=== PATIENT | male | born 1985 | race Caucasian/White ===

== ENCOUNTER 2018-12-16 10:25 | Observation (INO) | payer SELFPAY ==
--- NOTE | 2018-12-16 11:23 | PDOC ---
History of Present Illness - General Chief Complaint: Chest Pain Stated Complaint: CHEST PAIN Time Seen by Provider: 12/16/18 11:20 Past History - Past Medical History Allergies/Adverse Reactions: Allergies Allergy/AdvReac Type Severity Reaction Status Date / Time No Known Allergies Allergy Verified 12/16/18 10:28 Home Medications: Ambulatory Orders Atorvastatin Ca [Lipitor] 40 mg PO HS 12/16/18 Folic Acid 1 mg PO DAILY 12/16/18 Metoprolol Succinate 50 mg PO DAILY 12/16/18 Multivitamin,Therapeutic [Thera] 1 each PO DAILY 12/16/18 Spironolactone 25 mg PO DAILY 12/16/18 COPD: No HTN: Yes - Immunization History Immunization Up to Date: Yes - Suicide/Smoking/Psychosocial Hx Smoking Status: No Smoking History: Current every day smoker Have you smoked in the past 12 months: Yes Number of Cigarettes Smoked Daily: 0 Information on smoking cessation initiated: Yes Hx Alcohol Use: Yes Drug/Substance Use Hx: Yes (marijuana) Substance Use Type: None *Physical Exam - Vital Signs Last Vital Signs Temp Pulse Resp BP Pulse Ox 98.1 F 48 L 18 119/55 L 98 12/16/18 10:29 12/16/18 10:29 12/16/18 10:29 12/16/18 10:29 12/16/18 10:29
--- NOTE | 2018-12-16 11:25 | PDOC ---
History of Present Illness - General Chief Complaint: Chest Pain Stated Complaint: CHEST PAIN Time Seen by Provider: 12/16/18 11:20 - History of Present Illness Initial Comments: 33 year old male with PMH of HTN, HLD, and drug related IN (09/2018) presenting with chest pain for the past week. Describes the pain as pleuritic, exertional, intermittent, and maximally 8/10 of intensity. The pain does not wake him up from sleep except for one night. He does get shortness of breath with the pain. The pain is non-radiating and worse specifically with left hand movement. Denies any fevers, chills, nausea, vomiting, diarrhea, or other symptoms. He does not use cocaine anymore but does drink every other day (12 pack of beer) and has never had withdrawal symptoms or seizures before. 12/16/18 12:20 Past History - Past Medical History Allergies/Adverse Reactions: Allergies Allergy/AdvReac Type Severity Reaction Status Date / Time No Known Allergies Allergy Verified 12/16/18 10:28 Home Medications: Ambulatory Orders Atorvastatin Ca [Lipitor] 40 mg PO HS 12/16/18 Folic Acid 1 mg PO DAILY 12/16/18 Metoprolol Succinate 50 mg PO DAILY 12/16/18 Multivitamin,Therapeutic [Thera] 1 each PO DAILY 12/16/18 Spironolactone 25 mg PO DAILY 12/16/18 COPD: No HTN: Yes - Immunization History Immunization Up to Date: Yes - Suicide/Smoking/Psychosocial Hx Smoking Status: No Smoking History: Current every day smoker Have you smoked in the past 12 months: Yes Number of Cigarettes Smoked Daily: 0 Information on smoking cessation initiated: Yes Hx Alcohol Use: Yes Drug/Substance Use Hx: Yes (marijuana) Substance Use Type: None Review of Systems - Review of Systems Constitutional: No: Chills, Diaphoresis, Fever, Loss of Appetite HEENTM: No: Blurred Vision, Tearing, Recent change in vision, Double Vision Respiratory: Yes: Shortness of Breath, SOB with Exertion. No: Cough Cardiac (ROS): Yes: Chest Pain. No: Edema, Irregular Heart Rate, Lightheadedness, Palpitations ABD/GI: No: Diarrhea, Nausea, Vomiting : No: Burning, Dysuria, Discharge Musculoskeletal: No: Back Pain, Joint Pain, Joint Swelling Integumentary: No: Bruising, Lesions, Lumps Neurological: No: Headache, Numbness, Paresthesia, Tingling Psychiatric: No: Anxiety, Depression Hematologic/Lymphatic: No: Anemia, Blood Clots, Easy Bleeding *Physical Exam - Vital Signs Last Vital Signs Temp Pulse Resp BP Pulse Ox 98.1 F 48 L 18 119/55 L 98 12/16/18 10:29 12/16/18 10:29 12/16/18 10:29 12/16/18 10:29 12/16/18 10:29 - Physical Exam General Appearance: Yes: Nourished, Appropriately Dressed. No: Apparent Distress HEENT: positive: EOMI, LÓPEZ, Normal ENT Inspection, Normal Voice Neck: positive: Tender (left sided chest wall tenderness), Trachea midline, Normal Thyroid, Supple. negative: Rigid Respiratory/Chest: positive: Lungs Clear, Normal Breath Sounds. negative: Chest Tender, Respiratory Distress, Accessory Muscle Use Cardiovascular: positive: Regular Rhythm, Regular Rate Gastrointestinal/Abdominal: positive: Normal Bowel Sounds, Flat, Soft. negative : Tender Lymphatic: negative: Adenopathy, Tenderness Musculoskeletal: positive: Normal Inspection. negative: Decreased Range of Motion Extremity: positive: Normal Capillary Refill, Normal Inspection, Normal Range of Motion. negative: Tender Integumentary: positive: Normal Color, Dry, Warm Neurologic: positive: Fully Oriented, Alert, Normal Mood/Affect, Normal Response , Motor Strength 5/5 ED Treatment Course - LABORATORY CBC & Chemistry Diagram: 12/16/18 11:50 12/16/18 11:50 Medical Decision Making - Medical Decision Making 33 year old male with previous history of IN secondary to cocaine use with EKG demonstrating rate 100, IN interval 148, QRS 110, normal axis and many PVCs with ST segment changes in V2-v4 but no discrete contiguous elevations or contiguous depressions. Patient given ASA. Troponin negative and other labs WNL. Will admit patient for rule out IN after discussing with inpatient theme. 12/16/18 13:56 *DC/Admit/Observation/Transfer Diagnosis at time of Disposition: Chest pain, rule out acute myocardial infarction - Discharge Dispostion Condition at time of disposition: Stable Decision to Admit order: Yes - Referrals - Patient Instructions - Post Discharge Activity
[2018-12-16] MEDS ORDERED: ASPIRIN 81 MG CHEWABLE TABLETS PO ONE (11:37)
[2018-12-16] MEDS ORDERED: ASPIRIN 81 MG CHEWABLE TABLETS ONE (11:51)
[2018-12-16 11:58] LABS: BASO % 0.3 % (0-2.0); EOS % 2.1 % (0-4.5); HEMATOCRIT 45.9 % (35.4-49); HEMOGLOBIN 15.7 GM/dL (11.7-16.9); LYMPH % 25.1 % (8-40); MCH 30.8 pg (25.7-33.7); MCHC 34.2 g/dl (32.0-35.9); MEAN PLT VOLUME 10.7 fl (7.5-11.1); MONO % 5.9 % (3.8-10.2); NEUT % 66.6 % (42.8-82.8); PLATELET COUNT 187 K/MM3 (134-434); RDW 15.4 % (11.9-15.9); WHITE BLOOD COUNT 8.1 K/mm3 (4.0-10.0)
[2018-12-16 12:12] LABS: INR 1.04 (0.83-1.09); PROTHROMBIN TIME (PATIENT) 12.3 SEC (9.7-13.0)
[2018-12-16 12:33] LABS: ALBUMIN 4.1 g/dl (3.4-5.0); BILIRUBIN,TOTAL 1.2 mg/dL (0.2-1); BLOOD UREA NITROGEN 15.8 mg/dL (7-18); CALCIUM 9.3 mg/dL (8.5-10.1)
--- NOTE | 2018-12-16 12:59 | PDOC ---
Documentation entered by Don Cui SCRIBE, acting as scribe for Eulogio Rubalcava MD. Eulogio Rubalcava MD: This documentation has been prepared by the See cabrrea Elijah, SCRIBE, under my direction and personally reviewed by me in its entirety. I confirm that the documentation accurately reflects all work, treatment, procedures, and medical decision making performed by me. Attending Attestation - Resident Resident Name: Heladio Weiner - ED Attending Attestation I have performed the following: I have examined & evaluated the patient, The case was reviewed & discussed with the resident, I agree w/resident's findings & plan, Exceptions are as noted - HPI HPI: 12/16/18 12:23 Patient is a 33 year old male with a significant past medical history of ND in setting of cocaine use, HTN, HL, etoh abuse (drinks 12 pack every other day) and CHF presents to the ED with intermittent Left sided Chest Pain lasting for x1 week, but constant over the last day. Patient reports that the pain is similar to his CHF in the past (Admitted in September 2017), 8/10 intensity with no modifying factors. Denies SOB and Leg Swelling. Denies Diaphoresis, Recent Fall , and heavy lifting. No N/V, fevers, headaches, chills, trauma, recent travel, focal weakness/numbness, dizziness. No recent travel, immobility, calf pain. Allergies: NKA Social History: marijuana use daily, alcohol use, last cocaine use "months and months ago" - Physicial Exam PE: 12/16/18 12:28 GENERAL: Awake, alert, and fully oriented, in no acute distress. HEAD: No signs of trauma EYES: PERRLA, EOMI, sclera anicteric, conjunctiva clear ENT: Auricles normal inspection, hearing grossly normal, nares patent, oropharynx clear without exudates. Moist mucosa NECK: Nontender, no stepoffs, Normal ROM, supple, no lymphadenopathy, JVD, or masses LUNGS: Breath sounds equal, clear to auscultation bilaterally. No wheezes, and no crackles HEART: Regular rate and rhythm, normal S1 and S2, no murmurs, rubs or gallops ABDOMEN: Soft, nontender, normoactive bowel sounds. No guarding, no rebound. No masses EXTREMITIES: Normal range of motion, no edema. No clubbing or cyanosis. No cords, erythema, or tenderness NEUROLOGICAL: Cranial nerves II through XII intact. 5/5 strength and sensation in all extremities, Normal speech, normal gait, normal cerebellar function SKIN: Warm, Dry, normal turgor, no rashes or lesions noted. - Medical Decision Making 12/16/18 12:39 33yo M hx ND, CHF, etoh abuse presents to the ED with CP for 1 week, now contstant DDx includes ACS vs CHF vs PE vs PNA vs MSK pain Meets no PERC criteria, thus very low likelihood, also no risk factors, LE edema /pain, recent immobility HS is elevated Anticipate admission Heart Score/ECG Review - History History: Moderately suspicious - Electrocardiogram EKG: Non specific repolarization disturbance - Age Age: </= 45 - Risk Factors Risk Factors Heart Score: Yes Hx Obesity Based on the list above the patient has:: >/=3 risk factors or Hx atherosclerotic disease - Troponin Troponin: </= normal limit - Score Heart Score - Total: 4 #1 12/16/18 12:38 Twelve-lead EKG was performed and reviewed by me. Sinus rhythm with occasional PVCs. Rate 100. Normal axis. No ST elevations.
--- NOTE | 2018-12-16 13:49 | EKG ---
Test Reason : Blood Pressure : / mmHG Vent. Rate : 100 BPM Atrial Rate : 100 BPM P-R Int : 148 ms QRS Dur : 110 ms QT Int : 378 ms P-R-T Axes : 069 069 065 degrees QTc Int : 487 ms SINUS RHYTHM WITH OCCASIONAL PREMATURE VENTRICULAR COMPLEXES BIATRIAL ENLARGEMENT NONSPECIFIC ST ABNORMALITY PROLONGED QT ABNORMAL ECG NO PREVIOUS ECGS AVAILABLE Confirmed by KRISTY PRITCHARD MD ([id number]) on 12/16/2018 1:48:42 PM Referred By: Confirmed By:KRISTY PRITCHARD MD
[2018-12-16 14:26] LABS: COCAINE, UR NEGATIVE ng/ml (CUTOFF=300); METHADONE, UR NEGATIVE ng/ml (CUTOFF=300); OPIATES, URI NEGATIVE ng/ml (CUTOFF=300); PHENCYCLIDINE,URINE NEGATIVE ng/ml (CUTOFF=25); URINE AMPHETAMINES NEGATIVE ng/ml (CUTOFF=500); URINE BARBITURATES NEGATIVE ng/ml (CUTOFF=200); URINE BENZODIAZEPINES NEGATIVE ng/ml (CUTOFF=200)
[2018-12-16] MEDS ORDERED: ACETAMINOPHEN 325 MG TABLET (FP) PO PRN (15:34)
--- NOTE | 2018-12-16 16:16 | HP ---
CHIEF COMPLAINT: 33 year old male presented with left sided chest pain started 10 days ago, worsened over the past 1 day. PCP: He does not have a PCP, he gets all his medications from his revival clerk Dr. Christiano Forte at [facility]. HISTORY OF PRESENT ILLNESS: The patient is a 33 year old male with PMH significant for HTN, HLD, and ACS in the setting of cocaine abuse and CHF, for which he was admitted to [facility] in September 2017. He now presents to the ER with worsening left sided chest pain which began 10 days ago. The pain was gradual in onset, and was not brought upon by any physical exertion. Initially the pain was 3/10 but has increased in intensity to 9/10 over the past 24 hours. The pain is localized to the left side of his chest in the pectoral region. The pain was intermittent and last only a few minutes per episode, but has been constant for the past 24 hours. He describes the pain as someone applying pressure to his chest, and it does not radiate to the left arm , back, or anywhere else. It is aggravated by physical activity, by pressing on his chest, and when he inhales. Was admitted to [facility] for a month in September 2017 for suspected ACS after cocaine abuse. Pt claims he had an angio done, does not remember results. He complains of associated headaches and exertional dyspnea. He is normally able to walk 4-5 blocks and 4 flights of stairs, has become increasingly SOB over the past 10 days. He complains of 3,4 episodes of paroxysmal nocturnal dyspnea over the past week. His weight ranges between 220-240lbs. Current weight is 242 lbs as per patient, and his weight upon discharge in September 2017 was 219lbs. No associated complaints of orthopnea, he ambulates without assistance, and uses 1-2 pillows to sleep at night. There is no associated fever, chills, coughs , nausea, vomiting, diarrhea, ER course was notable for: (1) ASA 324 (2) EKG (3) CXR unremarkable Recent Travel: None PAST MEDICAL HISTORY: HTN, HLD, and ACS in the setting of cocaine abuse and CHF PAST SURGICAL HISTORY: None Social History: Smokin pack year history, non smoker for the past 9 years Alcohol: 6-7 beers per night, prior to September 2017 drank 50 beers and a gallon vodka every night, according to the patient Drugs: used cocaine prior to September 2017, has not used any since then. Smokes marijuana every night to help him sleep. Family History: Hx of breast cancer in mother's side of the family Allergies Shrimp, dust HOME MEDICATIONS: Home Medications Medication Instructions Recorded Atorvastatin Ca [Lipitor] 40 mg PO HS 12/16/18 Folic Acid 1 mg PO DAILY 12/16/18 Metoprolol Succinate 50 mg PO DAILY 12/16/18 Multivitamin,Therapeutic [Thera] 1 each PO DAILY 12/16/18 Spironolactone 25 mg PO DAILY 12/16/18 REVIEW OF SYSTEMS CONSTITUTIONAL: Absent: fever, chills, diaphoresis, generalized weakness, malaise, loss of appetite, weight change HEENT: Absent: rhinorrhea, nasal congestion, throat pain, throat swelling, difficulty swallowing, mouth swelling, ear pain, eye pain, visual changes CARDIOVASCULAR: chest pain Absent: syncope, palpitations, irregular heart rate, lightheadedness, peripheral edema RESPIRATORY: shortness of breath, dyspnea with exertion Absent: cough, orthopnea, wheezing, stridor, hemoptysis GASTROINTESTINAL: Absent: abdominal pain, abdominal distension, nausea, vomiting, diarrhea, constipation, melena, hematochezia GENITOURINARY: Absent: dysuria, frequency, urgency, hesitancy, hematuria, flank pain, genital pain MUSCULOSKELETAL: Absent: myalgia, arthralgia, joint swelling, back pain, neck pain SKIN: Absent: rash, itching, pallor HEMATOLOGIC/IMMUNOLOGIC: Absent: easy bleeding, easy bruising, lymphadenopathy, frequent infections ENDOCRINE: Absent: unexplained weight gain, unexplained weight loss, heat intolerance, cold intolerance NEUROLOGIC: Absent: headache, focal weakness or paresthesias, dizziness, unsteady gait, seizure, mental status changes, bladder or bowel incontinence PSYCHIATRIC: Absent: anxiety, depression, suicidal or homicidal ideation, hallucinations. PHYSICAL EXAMINATION Vital Signs - 24 hr 12/16/18 12/16/18 12/16/18 10:29 11:24 12:53 Temperature 98.1 F 98.4 F Pulse Rate 48 L Pulse Rate [ 105 H Apical] Respiratory 18 20 Rate Blood Pressure 119/55 L Blood Pressure 111/69 [Right Arm] O2 Sat by Pulse 98 98 98 Oximetry (%) GENERAL: Awake, alert, and fully oriented, complaining of chest pain HEAD: Normal with no signs of trauma. EYES: Pupils equal, round and reactive to light, extraocular movements intact, sclera anicteric, conjunctiva clear. No lid lag. EARS, NOSE, THROAT: Ears normal, nares patent, oropharynx clear without exudates. Moist mucous membranes. NECK: Normal range of motion, supple without lymphadenopathy, JVD, or masses. LUNGS: Breath sounds equal, clear to auscultation bilaterally. No wheezes, and no crackles. No accessory muscle use. HEART: Regular rate and rhythm, normal S1 and S2 without murmur, rub or gallop. ABDOMEN: Soft, nontender, not distended, normoactive bowel sounds, no guarding, no rebound, no masses. No hepatomegaly or splenomegaly, no JVD MUSCULOSKELETAL: Normal range of motion at all joints. No bony deformities or tenderness. No CVA tenderness. UPPER EXTREMITIES: 2+ pulses, warm, well-perfused. No cyanosis. No clubbing. No peripheral edema. LOWER EXTREMITIES: 2+ pulses, warm, well-perfused. No calf tenderness. No peripheral edema. NEUROLOGICAL: Cranial nerves II-XII intact. Normal speech. Normal gait. PSYCHIATRIC: Cooperative. Good eye contact. Appropriate mood and affect. SKIN: Warm, dry, normal turgor, no rashes or lesions noted, normal capillary refill. Laboratory Results - last 24 hr 12/16/18 12/16/18 12/16/18 11:50 11:50 11:50 WBC 8.1 RBC 5.10 Hgb 15.7 Hct 45.9 MCV 90.0 MCH 30.8 MCHC 34.2 RDW 15.4 Plt Count 187 MPV 10.7 Absolute Neuts (auto) 5.4 Neutrophils % 66.6 Lymphocytes % 25.1 D Monocytes % 5.9 Eosinophils % 2.1 Basophils % 0.3 Nucleated RBC % 0 PT with INR INR Sodium 138 Potassium 4.0 Chloride 102 Carbon Dioxide 28 Anion Gap 8 BUN 15.8 Creatinine 1.0 Est GFR (CKD-EPI)AfAm 113.31 Est GFR (CKD-EPI)NonAf 97.76 Random Glucose 87 Calcium 9.3 Magnesium 2.0 Total Bilirubin 1.2 H AST 43 H ALT 69 H Alkaline Phosphatase 88 Creatine Kinase 242 Creatine Kinase Index 1.1 CK-MB (CK-2) 2.8 Troponin I 0.02 Total Protein 8.0 Albumin 4.1 Opiates Screen Methadone Screen Barbiturate Screen Phencyclidine Screen Ur Amphetamines Screen MDMA (Ecstasy) Screen Benzodiazepines Screen Cocaine Screen U Marijuana (THC) Screen 12/16/18 12/16/18 11:50 13:25 WBC RBC Hgb Hct MCV MCH MCHC RDW Plt Count MPV Absolute Neuts (auto) Neutrophils % Lymphocytes % Monocytes % Eosinophils % Basophils % Nucleated RBC % PT with INR 12.30 INR 1.04 Sodium Potassium Chloride Carbon Dioxide Anion Gap BUN Creatinine Est GFR (CKD-EPI)AfAm Est GFR (CKD-EPI)NonAf Random Glucose Calcium Magnesium Total Bilirubin AST ALT Alkaline Phosphatase Creatine Kinase Creatine Kinase Index CK-MB (CK-2) Troponin I Total Protein Albumin Opiates Screen Negative Methadone Screen Negative Barbiturate Screen Negative Phencyclidine Screen Negative Ur Amphetamines Screen Negative MDMA (Ecstasy) Screen Negative Benzodiazepines Screen Negative Cocaine Screen Negative U Marijuana (THC) Screen Negative ASSESSMENT/PLAN: #Atypical chest pain with significant cardiac history in setting of cocaine abuse - Tele - EKG: Sinus rhythm with poor R wave progression, QTc 487 - Trops normal, repeat - ASA 324mg recieved - on O2 2L - Urine tox sent - D/C metoprolol due to hx of cocaine use #CHF - BNP pending - Echo - CXR: No ecidence of pulmonary disease #Hx of HTN - Replace Metoprolol #Hx of HLD - Continue Atorvastatin 40mg OD #FEN - monitor K, Mg - Regular diet #DVT PE - SCDs, early ambulation #Dispo - Tele Visit type - Emergency Visit Emergency Visit: Yes ED Registration Date: 12/16/18 Care time: The patient presented to the Emergency Department on the above date and was hospitalized for further evaluation of their emergent condition. - New Patient This patient is new to me today: Yes Date on this admission: 01/01/19 - Critical Care Critical Care patient: No ATTENDING PHYSICIAN STATEMENT I saw and evaluated the patient. I reviewed the resident's note and discussed the case with the resident. I agree with the resident's findings and plan as documented. SUBJECTIVE: OBJECTIVE: ASSESSMENT AND PLAN:
--- NOTE | 2018-12-16 16:28 | CON.CARD ---
Consult Consult Specialty:: Cardiology Referred by:: Medicine Reason for Consultation:: chest pain - History of Present Illness Chief Complaint: chest pain History of Present Illness: 33M h/o MT 2/2 cocaine use, HTN, HLD, EtOH use, chronic systolic HF p/w L sided chest pain that has been constant over the last day. Started about a week ago. L side of chest, worse with deep breaths and moving. No palps, dizziness, dyspnea, edema. Has been seeing Dr. Forte for CHF at [facility], not seen recently but has been getting refills on his medications. He has not used cocaine recently. Has been taking diuretic twice a day for the last 2 months. No orthopnea, PND. - History Source History Provided By: Patient Limitations to Obtaining History: No Limitations - Alcohol/Substance Use Hx Alcohol Use: Yes - Smoking History Smoking history: Current every day smoker Have you smoked in the past 12 months: Yes Aproximately how many cigarettes per day: 0 Home Medications - Allergies Allergies/Adverse Reactions: Allergies Allergy/AdvReac Type Severity Reaction Status Date / Time No Known Allergies Allergy Verified 12/16/18 10:28 - Home Medications Home Medications: Ambulatory Orders Atorvastatin Ca [Lipitor] 40 mg PO HS 12/16/18 Folic Acid 1 mg PO DAILY 12/16/18 Metoprolol Succinate 50 mg PO DAILY 12/16/18 Multivitamin,Therapeutic [Thera] 1 each PO DAILY 12/16/18 Spironolactone 25 mg PO DAILY 12/16/18 Family Disease History - Family Disease History Family History: Unremarkable Review of Systems - Review of Systems Constitutional: reports: No Symptoms Eyes: reports: No Symptoms HENT: reports: No Symptoms Neck: reports: No Symptoms Cardiovascular: reports: No Symptoms Respiratory: reports: No Symptoms Gastrointestinal: reports: No Symptoms Genitourinary: reports: No Symptoms Musculoskeletal: reports: No Symptoms Integumentary: reports: No Symptoms Neurological: reports: No Symptoms Endocrine: reports: No Symptoms Hematology/Lymphatic: reports: No Symptoms Psychiatric: reports: No Symptoms Vital Signs: Vital Signs Temperature 98.4 F 12/16/18 12:53 Pulse Rate 105 H 12/16/18 12:53 Respiratory Rate 20 12/16/18 12:53 Blood Pressure 111/69 12/16/18 12:53 O2 Sat by Pulse Oximetry (%) 98 12/16/18 12:53 Constitutional: Yes: Well Nourished, No Distress, Calm Eyes: Yes: Conjunctiva Clear, EOM Intact HENT: Yes: Atraumatic, Normocephalic Neck: Yes: Supple, Trachea Midline Respiratory: Yes: Regular, CTA Bilaterally Gastrointestinal: Yes: Normal Bowel Sounds, Soft Cardiovascular: Yes: Regular Rate and Rhythm JVD: No Carotid Bruit: No PMI: Non-Displaced Heart Sounds: Yes: S1, S2 Musculoskeletal: No: Back Pain Extremities: No: Cold Edema: No Peripheral Pulses WNL: Yes Neurological: Yes: Alert, Oriented Psychiatric: No: Agitated - Other Data Labs, Other Data: CBC, BMP 12/16/18 11:50 12/16/18 11:50 INR, PTT INR 1.04 (0.83-1.09) 12/16/18 11:50 Troponin, BNP 12/16/18 11:50 Troponin I 0.02 Troponin, BNP 12/16/18 11:50 Troponin I 0.02 Assessment/Plan EKG: sinus with PVCs, biatrial enlargement, prolonged qtc CXR: no congestion Chest pain - atypical for ACS - positional, pleuritic - reportedly normal cath at [facility] in 09/2017 as part of cardiomyopathy workup - trop neg x 1, no ischemic changes, repeat trop pending - tox screen neg for cocaine - echo pending - monitor on tele chronic systolic HF 2/2 cocaine use - no congestion on CXR, appears euvolemic - BNP ordered - echo pending - cont spironolactone, metoprolol - patient didn't bring all his meds, unclear why not on [facility], would clarify meds list HLD - cont statin
--- NOTE | 2018-12-16 16:28 | PN ---
Teaching Attending Note Name of Resident: Ricki Pierson ATTENDING PHYSICIAN STATEMENT I saw and evaluated the patient. I reviewed the resident's note and discussed the case with the resident. I agree with the resident's findings and plan as documented. SUBJECTIVE:Chest pain and SOB 33 yrs old man present to Ed for evaluation of chest pain and SOB that gradually increasing over past 10-15 days last night experienced any episode of PND and Left side chest pain that he describes as constant , reproducible with chest wall movement and local pressure aggravates with exertion, patient is first time at [facility] as per patient previously admitted at [facility] in September 2017 with sever SOB, LE swelling and chest pain after heavy Cocaine and ETOH abuse for months , remained hospitalized for 1 month worked up for [place] and CHF underwent Cardiac cath that was reported normal as no blockage in the heart artery also had Cardiac MRI probably to evaluate low EF that he remembers only 7% at the time of hospitalization, patient was admitted with 255 lbs and on DC his dry weight was 2119, as per patient he remained complaint with meds but stop F/U after 3-4 visits, currently claims clean with Cocaine but for past few weeks drinking heavy multiple Beers and Vodka, last night experienced worsening chest pain brought him to Ed, at [facility] [employer] lives on 4th floor climbs daily lately feels tired and SOB after 2 flights of stairs OBJECTIVE: Vital Signs Temperature 98.4 F 12/16/18 12:53 Pulse Rate 105 H 12/16/18 12:53 Respiratory Rate 20 12/16/18 12:53 Blood Pressure 111/69 12/16/18 12:53 O2 Sat by Pulse Oximetry (%) 98 12/16/18 12:53 Young man comfortable HEENT: mm moist, no anemia, PERRLA EOMI NECK; No JVd No bruit CHEST: CTA B/L CVS; S1S2 R ABD: non tender Bs + EXT: No edema feet, no calf tenderness SHANK SCOURER: AOx3 non focal CBC,CMP WBC 8.1 K/mm3 (4.0-10.0) 12/16/18 11:50 RBC 5.10 M/mm3 (4.00-5.60) 12/16/18 11:50 Hgb 15.7 GM/dL (11.7-16.9) 12/16/18 11:50 Hct 45.9 % (35.4-49) 12/16/18 11:50 MCV 90.0 fl (80-96) 12/16/18 11:50 MCH 30.8 pg (25.7-33.7) 12/16/18 11:50 MCHC 34.2 g/dl (32.0-35.9) 12/16/18 11:50 RDW 15.4 % (11.9-15.9) 12/16/18 11:50 Plt Count 187 K/MM3 (134-434) 12/16/18 11:50 MPV 10.7 fl (7.5-11.1) 12/16/18 11:50 Absolute Neuts (auto) 5.4 K/mm3 (1.5-8.0) 12/16/18 11:50 Neutrophils % 66.6 % (42.8-82.8) 12/16/18 11:50 Lymphocytes % 25.1 % (8-40) D 12/16/18 11:50 Monocytes % 5.9 % (3.8-10.2) 12/16/18 11:50 Eosinophils % 2.1 % (0-4.5) 12/16/18 11:50 Basophils % 0.3 % (0-2.0) 12/16/18 11:50 Nucleated RBC % 0 % (0-0) 12/16/18 11:50 Sodium 138 mmol/L (136-145) 12/16/18 11:50 Potassium 4.0 mmol/L (3.5-5.1) 12/16/18 11:50 Chloride 102 mmol/L (98-107) 12/16/18 11:50 Carbon Dioxide 28 mmol/L (21-32) 12/16/18 11:50 Anion Gap 8 MMOL/L (8-16) 12/16/18 11:50 BUN 15.8 mg/dL (7-18) 12/16/18 11:50 Creatinine 1.0 mg/dL (0.55-1.3) 12/16/18 11:50 Est GFR (CKD-EPI)AfAm 113.31 12/16/18 11:50 Est GFR (CKD-EPI)NonAf 97.76 12/16/18 11:50 Random Glucose 87 mg/dL (74-106) 12/16/18 11:50 Calcium 9.3 mg/dL (8.5-10.1) 12/16/18 11:50 Magnesium 2.0 mg/dL (1.8-2.4) 12/16/18 11:50 Total Bilirubin 1.2 mg/dL (0.2-1) H 12/16/18 11:50 AST 43 U/L (15-37) H 12/16/18 11:50 ALT 69 U/L (13-61) H 12/16/18 11:50 Alkaline Phosphatase 88 U/L (45-117) 12/16/18 11:50 Creatine Kinase 242 U/L (26-308) 12/16/18 11:50 Creatine Kinase Index 1.1 % (0.0-5.0) 12/16/18 11:50 CK-MB (CK-2) 2.8 ng/mL (0.5-3.6) 12/16/18 11:50 Troponin I 0.02 ng/ml (0.00-0.05) 12/16/18 11:50 Total Protein 8.0 g/dl (6.4-8.2) 12/16/18 11:50 Albumin 4.1 g/dl (3.4-5.0) 12/16/18 11:50 EK NSR no acute ST t changes CXR; Normal ASSESSMENT AND PLAN: 33 yrs old man with H/O PSA ex Cocaine active ETOH and Marijuana smoker also H/O Substance induced NICM CHFrEF no recent EF present with SOB and atypical chest pain with decrease ET clinically compensated CHEST pain; atypical denies any cocaine abuse F/U Utox resume all home meds ASa , Metoprolol , S/L NTG PRN, cardiology consult, telemonitor, serial CE,TSH lipid panel, ECHO, BNP if High IV lasix 40 mg , low salt diet daily wt call pharmacy and his program management manager to get old record SOB; probably decompensated CHF due to excessive ETOH abuse F/U BNP resume all home meds clinically euvolumic, IV lasix if BNP is high ETOH abuse; Thiamine, folic acid last drink yesterday observe for DTs PRN librium hypercholesterolemia: Cont Statin DVT prophylaxis
[2018-12-16] MEDS ORDERED: NITROGLYCERIN SUBLINGUAL 1/150 0.4 MG TAB SL PRN (18:31)
[2018-12-16] MEDS ORDERED: KETOROLAC TROMETHAMINE 30 MG/1 ML VIAL IVPUSH ONE (19:30)
[2018-12-16] MEDS ORDERED: KETOROLAC TROMETHAMINE 30 MG/1 ML VIAL ONE (19:42)
[2018-12-16 20:12] LABS: N-TERMINAL BNP 1130.9 pg/ml (5-125)
[2018-12-16] MEDS ORDERED: ATORVASTATIN CA 40 MG TABLET (FP) PO SCH (22:00)
[2018-12-16] MEDS ORDERED: MELATONIN 5 MG TABLETS PO SCH (22:00)
[2018-12-16] MEDS ORDERED: ATORVASTATIN CA 40 MG TABLET (FP) ONE (22:27)
[2018-12-17] MEDS ORDERED: KETOROLAC TROMETHAMINE 30 MG/1 ML VIAL IVPUSH ONE ×3 (01:49→14:25)
[2018-12-17 02:08] VITALS: BMI 38.0
--- NOTE | 2018-12-17 06:12 | PN ---
Physical Exam: SUBJECTIVE: Patient seen and examined OBJECTIVE: Vital Signs Period Temp Pulse Resp BP Sys/Tucker Pulse Ox Last 24 Hr 97.7 F-98.4 F 48-105 18-20 104-134/55-69 97-98 GENERAL: The patient is awake, alert, and fully oriented, in no acute distress. HEAD: Normal with no signs of trauma. EYES: PERRL, extraocular movements intact, sclera anicteric, conjunctiva clear. No ptosis. ENT: Ears normal, nares patent, oropharynx clear without exudates, moist mucous membranes. NECK: Trachea midline, full range of motion, supple. LUNGS: Breath sounds equal, clear to auscultation bilaterally, no wheezes, no crackles, no accessory muscle use. HEART: Regular rate and rhythm, S1, S2 without murmur, rub or gallop. ABDOMEN: Soft, nontender, nondistended, normoactive bowel sounds, no guarding, no rebound, no hepatosplenomegaly, no masses. EXTREMITIES: 2+ pulses, warm, well-perfused, no edema. NEUROLOGICAL: Cranial nerves II through XII grossly intact. Normal speech, gait not observed. PSYCH: Normal mood, normal affect. SKIN: Warm, dry, normal turgor, no rashes or lesions noted Laboratory Results - last 24 hr 12/16/18 12/16/18 12/16/18 11:50 11:50 11:50 WBC 8.1 RBC 5.10 Hgb 15.7 Hct 45.9 MCV 90.0 MCH 30.8 MCHC 34.2 RDW 15.4 Plt Count 187 MPV 10.7 Absolute Neuts (auto) 5.4 Neutrophils % 66.6 Lymphocytes % 25.1 D Monocytes % 5.9 Eosinophils % 2.1 Basophils % 0.3 Nucleated RBC % 0 PT with INR INR Sodium 138 Potassium 4.0 Chloride 102 Carbon Dioxide 28 Anion Gap 8 BUN 15.8 Creatinine 1.0 Est GFR (CKD-EPI)AfAm 113.31 Est GFR (CKD-EPI)NonAf 97.76 Random Glucose 87 Calcium 9.3 Magnesium 2.0 Total Bilirubin 1.2 H AST 43 H ALT 69 H Alkaline Phosphatase 88 Creatine Kinase 242 Creatine Kinase Index 1.1 CK-MB (CK-2) 2.8 Troponin I 0.02 B-Natriuretic Peptide Total Protein 8.0 Albumin 4.1 Opiates Screen Methadone Screen Barbiturate Screen Phencyclidine Screen Ur Amphetamines Screen MDMA (Ecstasy) Screen Benzodiazepines Screen Cocaine Screen U Marijuana (THC) Screen 12/16/18 12/16/18 12/16/18 11:50 13:25 19:20 WBC RBC Hgb Hct MCV MCH MCHC RDW Plt Count MPV Absolute Neuts (auto) Neutrophils % Lymphocytes % Monocytes % Eosinophils % Basophils % Nucleated RBC % PT with INR 12.30 INR 1.04 Sodium Potassium Chloride Carbon Dioxide Anion Gap BUN Creatinine Est GFR (CKD-EPI)AfAm Est GFR (CKD-EPI)NonAf Random Glucose Calcium Magnesium Total Bilirubin AST ALT Alkaline Phosphatase Creatine Kinase Creatine Kinase Index CK-MB (CK-2) Troponin I 0.03 B-Natriuretic Peptide 1130.9 H Total Protein Albumin Opiates Screen Negative Methadone Screen Negative Barbiturate Screen Negative Phencyclidine Screen Negative Ur Amphetamines Screen Negative MDMA (Ecstasy) Screen Negative Benzodiazepines Screen Negative Cocaine Screen Negative U Marijuana (THC) Screen Negative 12/17/18 03:15 WBC RBC Hgb Hct MCV MCH MCHC RDW Plt Count MPV Absolute Neuts (auto) Neutrophils % Lymphocytes % Monocytes % Eosinophils % Basophils % Nucleated RBC % PT with INR INR Sodium Potassium Chloride Carbon Dioxide Anion Gap BUN Creatinine Est GFR (CKD-EPI)AfAm Est GFR (CKD-EPI)NonAf Random Glucose Calcium Magnesium Total Bilirubin AST ALT Alkaline Phosphatase Creatine Kinase Creatine Kinase Index CK-MB (CK-2) Troponin I 0.04 B-Natriuretic Peptide Total Protein Albumin Opiates Screen Methadone Screen Barbiturate Screen Phencyclidine Screen Ur Amphetamines Screen MDMA (Ecstasy) Screen Benzodiazepines Screen Cocaine Screen U Marijuana (THC) Screen Active Medications Generic Name Dose Route Start Last Admin Trade Name Freq PRN Reason Stop Dose Admin Acetaminophen 650 mg 12/16/18 15:34 Tylenol - PO Q6H PRN PAIN LEVEL 6-10 Atorvastatin Calcium 40 mg 12/16/18 22:00 12/16/18 22:45 Lipitor - PO 40 mg HS MARCIE Administration Folic Acid 1 mg 12/17/18 10:00 Folic Acid - PO DAILY MARCIE Melatonin 10 mg 12/16/18 22:00 12/16/18 22:45 Melatonin PO 10 mg HS MARCIE Administration Multivitamins/Minerals 1 each 12/17/18 10:00 Theragran-M PO DAILY MARCIE Nitroglycerin 0.4 mg 12/16/18 18:31 12/17/18 01:33 Nitrostat - SL 0.4 mg Q5M PRN Administration FOR CHEST PAIN Spironolactone 25 mg 12/17/18 10:00 Aldactone - PO DAILY [facility] ASSESSMENT/PLAN: 33 year old male with PMH significant for HTN, HLD, and Acute cardiomyopathy in the setting of cocaine abuse and CHF, for which he was admitted to [facility] in September 2017. He now presents to the ER with worsening left sided chest pain which began 10 days ago. #Atypical chest pain with significant cardiac history in setting of cocaine abuse - Cardio: chronic systolic HF 2/2 cocaine use, cont spirono, metoprolol, statins - Tele - EKG: Sinus rhythm with poor R wave progression, QTc 487 - Trops 0.03 => 0.04 - ASA 324mg recieved - on O2 2L - Urine tox NEG cocaine, marijuana - D/C metoprolol due to hx of cocaine use #CHF - BNP 1130.9 - Echo: pending - CXR: No ecidence of pulmonary disease #Hx of HTN - Replace Metoprolol #Hx of HLD - Continue Atorvastatin 40mg OD #FEN - monitor K, Mg - Regular diet #DVT PE - SCDs, early ambulation #Dispo - Tele Visit type - Emergency Visit Emergency Visit: Yes ED Registration Date: 12/16/18 Care time: The patient presented to the Emergency Department on the above date and was hospitalized for further evaluation of their emergent condition. - New Patient This patient is new to me today: No - Critical Care Critical Care patient: No - Discharge Referral Referred to [facility] No ATTENDING PHYSICIAN STATEMENT I saw and evaluated the patient. I reviewed the resident's note and discussed the case with the resident. I agree with the resident's findings and plan as documented. SUBJECTIVE: OBJECTIVE: ASSESSMENT AND PLAN:
--- NOTE | 2018-12-17 07:36 | PN ---
Teaching Attending Note Name of Resident: Ricki Pierson ATTENDING PHYSICIAN STATEMENT I saw and evaluated the patient. I reviewed the resident's note and discussed the case with the resident. I agree with the resident's findings and plan as documented. SUBJECTIVE:Still c/o chest pain OBJECTIVE: Vital Signs Temperature 98.3 F 12/17/18 01:49 Pulse Rate 61 12/17/18 01:49 Respiratory Rate 18 12/17/18 01:49 Blood Pressure 134/59 L 12/17/18 01:49 O2 Sat by Pulse Oximetry (%) 98 12/17/18 03:05 Young man comfortable HEENT: mm moist, no anemia, PERRLA EOMI NECK; No JVd No bruit CHEST: reproducible pain left precordium CTA B/L CVS; S1S2 R ABD: non tender Bs + EXT: No edema feet, no calf tenderness FREIGHT DISPATCHER: AOx3 non focal Active Medications Acetaminophen (Tylenol -) 650 mg PO Q6H PRN PRN Reason: PAIN LEVEL 6-10 Atorvastatin Calcium (Lipitor -) 40 mg PO HS MARCIE Last Admin: 12/16/18 22:45 Dose: 40 mg Folic Acid (Folic Acid -) 1 mg PO DAILY MARCIE Melatonin (Melatonin) 10 mg PO HS MARCIE Last Admin: 12/16/18 22:45 Dose: 10 mg Multivitamins/Minerals (Theragran-M) 1 each PO DAILY MARCIE Nitroglycerin (Nitrostat -) 0.4 mg SL Q5M PRN PRN Reason: FOR CHEST PAIN Last Admin: 12/17/18 01:33 Dose: 0.4 mg Spironolactone (Aldactone -) 25 mg PO DAILY [facility] ASSESSMENT AND PLAN:33 yrs old man with H/O PSA ex Cocaine active ETOH and Marijuana smoker also H/O Substance induced NICM CHFrEF no recent EF present with SOB and atypical chest pain with decrease ET clinically compensated serial CE are -ve no acute St T changes.ECHO shows EF 30-35% Problem List - Problems (1) Chest pain, rule out acute myocardial infarction Assessment/Plan: H/O Cocaine induced MD 1 yr ago with NICM Cardiac cath was reported normal, low EF no serial ECHO atypical CP ACS R/O with stable EKG and normal serial trop I on Home meds awaiting ECHO R/O other etiology pericardiums or Pulmonary etiology F/U ESR, CRP, ECHO and D Dimmers oif significantly + D Dimmers consider CTa to R/O PE (pleuritic CP, sedentary due to binge drinking for past 2 wks and H/O CHF) Code(s): R07.9 - CHEST PAIN, UNSPECIFIED (2) HFrEF (heart failure with reduced ejection fraction) Assessment/Plan: Diagnosed 1 yr ago Substance abuse NICM as per patient low Ef (today Ef 30-35 %)not on ACEI but on aldactone will call Pharmacy to get MED list rpt ECHO elevated D Sarah cont B Blockers aldactone and Lasix 40 mg daily F/U BMP and Mag level add ACEI/ARBS, please get old record from [facility] Code(s): I50.20 - UNSPECIFIED SYSTOLIC (CONGESTIVE) HEART FAILURE (3) ETOH abuse Assessment/Plan: Observe for DTS cont Thianmine and Folic acid. Code(s): F10.10 - ALCOHOL ABUSE, UNCOMPLICATED
[2018-12-17 07:37] LABS: HEMATOCRIT 41.9 % (35.4-49); HEMOGLOBIN 14.2 GM/dL (11.7-16.9); MEAN CELL VOLUME 91.3 fl (80-96); MEAN PLT VOLUME 11.2 fl (7.5-11.1); PLATELET COUNT 150 K/MM3 (134-434); RBC 4.59 M/mm3 (4.00-5.60); RDW 15.4 % (11.9-15.9); WHITE BLOOD COUNT 5.9 K/mm3 (4.0-10.0)
[2018-12-17 07:43] LABS: ANION GAP 7 MMOL/L (8-16); BLOOD UREA NITROGEN 21.9 mg/dL (7-18); CALCIUM 9.3 mg/dL (8.5-10.1); CHLORIDE 107 mmol/L (98-107); CO2 27 mmol/L (21-32); GLUCOSE,RANDOM 100 mg/dL (74-106); MAGNESIUM 2.3 mg/dL (1.8-2.4); PHOSPHOROUS 3.6 mg/dL (2.5-4.9); POTASSIUM 3.8 mmol/L (3.5-5.1); SODIUM 141 mmol/L (136-145)
--- NOTE | 2018-12-17 08:25 | PN ---
Progress Note, Physician Chief Complaint: walking about the room TELE: NSR, PVCs, bigeminy C/o chest pain for one hour again last night. Relieved by Toradol ecg nsr w pvcs, no acute st changes - Current Medication List Current Medications: Active Medications Acetaminophen (Tylenol -) 650 mg PO Q6H PRN PRN Reason: PAIN LEVEL 6-10 Atorvastatin Calcium (Lipitor -) 40 mg PO HS [facility] Last Admin: 12/16/18 22:45 Dose: 40 mg Folic Acid (Folic Acid -) 1 mg PO DAILY [facility] Melatonin (Melatonin) 10 mg PO HS [facility] Last Admin: 12/16/18 22:45 Dose: 10 mg Multivitamins/Minerals (Theragran-M) 1 each PO DAILY [facility] Nitroglycerin (Nitrostat -) 0.4 mg SL Q5M PRN PRN Reason: FOR CHEST PAIN Last Admin: 12/17/18 01:33 Dose: 0.4 mg Spironolactone (Aldactone -) 25 mg PO DAILY [facility] - Objective Vital Signs: Vital Signs Temperature 98.3 F 12/17/18 01:49 Pulse Rate 61 12/17/18 01:49 Respiratory Rate 18 12/17/18 01:49 Blood Pressure 134/59 L 12/17/18 01:49 O2 Sat by Pulse Oximetry (%) 98 12/17/18 03:05 Constitutional: Yes: No Distress, Calm Eyes: Yes: Conjunctiva Clear, EOM Intact Cardiovascular: Yes: Pulse Irregular (PVCs) Respiratory: Yes: CTA Bilaterally (no wheezing or rales) Gastrointestinal: Yes: Soft (NT) Edema: No Peripheral Pulses WNL: Yes Neurological: Yes: Alert, Oriented ...Motor Strength: WNL Labs: CBC, BMP 12/17/18 06:15 12/17/18 06:15 INR, PTT INR 1.04 (0.83-1.09) 12/16/18 11:50 Laboratory Tests 12/16/18 12/16/18 12/16/18 11:50 13:25 19:20 WBC Hgb Plt Count Sodium Potassium Creatinine Troponin I 0.02 0.03 Opiates Screen Negative Methadone Screen Negative Barbiturate Screen Negative Phencyclidine Screen Negative Ur Amphetamines Screen Negative MDMA (Ecstasy) Screen Negative Benzodiazepines Screen Negative Cocaine Screen Negative U Marijuana (THC) Screen Negative 12/17/18 12/17/18 12/17/18 03:15 06:15 06:15 WBC 5.9 Hgb 14.2 Plt Count 150 Sodium 141 Potassium 3.8 Creatinine 1.0 Troponin I 0.04 Opiates Screen Methadone Screen Barbiturate Screen Phencyclidine Screen Ur Amphetamines Screen MDMA (Ecstasy) Screen Benzodiazepines Screen Cocaine Screen U Marijuana (THC) Screen - ....Imaging EKG: Image Reviewed Assessment/Plan Assessment/Plan EKG: sinus with PVCs, biatrial enlargement, prolonged qtc CXR: no congestion Chest pain: - atypical for ACS - positional, pleuritic - reportedly normal cath at [facility] in 09/2017 as part of cardiomyopathy workup - trops neg/flat - tox screen neg for cocaine - echo pending to assess LV fx, r/o pericardial dz - monitor on tele Chronic systolic HF 2/2 cocaine use: - no congestion on CXR, appears euvolemic - BNP elevated, possibly represents his baseline - echo pending - cont spironolactone, patient didn't bring all his meds, unclear why not on MARYAM/ARB, would clarify meds list -Beta blockade needs to be used w/ caution if there is hx of cocaine abuse HLD - cont statin
[2018-12-17] MEDS ORDERED: KETOROLAC TROMETHAMINE 15 MG/ML VIAL IVPUSH ONE (09:01)
[2018-12-17] MEDS ORDERED: SPIRONOLACTONE 25 MG TABLET (FP) PO SCH (10:00)
[2018-12-17] MEDS ORDERED: FOLIC ACID 1 MG TABLET (FP) PO SCH (10:00)
[2018-12-17] MEDS ORDERED: MULTIVITAMINS THER W-MINERALS COMBO TABLET (FP) PO SCH (10:00)
--- NOTE | 2018-12-17 10:07 | ECHO ---
Name: DENA BAZAN Exam:Adult Echocardiogram Study Date: 12/17/2018 07:44 AM Age: 33 yrs Reason For Study: R/O Wall Motion ABN Height: 68 in Weight: 242 lb BSA: 2.2 m2 MMode/2D Measurements & Calculations IVSd: 1.0 cm LA dimension: 4.7 cm LVIDd: 6.7 cm ACS: 2.0 cm LVIDs: 5.4 cm LVPWd: 1.6 cm EDV(Teich): 232.5 ml LVOT diam: 2.0 cm ESV(Teich): 139.1 ml RV S Michael: 8.2 cm/sec Doppler Measurements & Calculations Ao V2 max: 139.9 cm/sec LV V1 max P.3 mmHg Ao max P.8 mmHg LV V1 mean P.5 mmHg Ao V2 mean: 103.6 cm/sec LV V1 max: 76.2 cm/sec Ao mean P.6 mmHg LV V1 mean: 59.0 cm/sec Ao V2 VTI: 31.0 cm LV V1 VTI: 17.9 cm GALINDO(I,D): 1.8 cm2 GALINDO(V,D): 1.7 cm2 SV(LVOT): 57.3 ml TR max michael: 266.0 cm/sec TR max P.3 mmHg Med Peak E' Michael: 5.4 cm/sec Lat Peak E' Michael: 7.3 cm/sec Procedure The study was technically difficult with many images being suboptimal in quality. Left Ventricle Ejection Fraction = 30-35%. Left ventricular systolic function is severely reduced. Regional wall mot ion abnormalities cannot be excluded due to limited visualization. There is severe global hypokinesis of the left ventricle. The left ventricular apex is not well visualized. Right Ventricle The right ventricle is not well visualized. The right ventricle is grossly normal size. The right ariane tricular systolic function is mildly reduced. Atria The left atrium is moderately dilated. Right atrium not well visualized. Mitral Valve The mitral valve is normal in structure and function. There is no mitral valve stenosis. There is mil d mitral regurgitation. Tricuspid Valve The tricuspid valve is normal in structure and function. There is mild tricuspid regurgitation. There was insufficient TR detected to calculate RV systolic pressure. Aortic Valve The aortic valve opens well. No hemodynamically significant valvular aortic stenosis. No aortic regur gitation is present. Pulmonic Valve The pulmonic valve is not well seen, but is grossly normal. There is no pulmonic valvular stenosis. T here is no pulmonic valvular regurgitation. Great Vessels The aortic root is normal size. Pericardium/Pleura There is no pericardial effusion. Interpretation Summary The study was technically difficult with many images being suboptimal in quality. Regional wall motion abnormalities cannot be excluded due to limited visualization. There is severe global hypokinesis of the left ventricle. Ejection Fraction = 30-35%. Left ventricular systolic function is severely reduced. The left ventricular apex is not well visualized. The right ventricle is not well visualized. The right ventricular systolic function is mildly reduced. The left atrium is moderately dilated. There is mild mitral regurgitation. There is mild tricuspid regurgitation. There was insufficient TR detected to calculate RV systolic pressure. There is no pericardial effusion. MD Mckeon *Jacob 12/17/2018 10:07 AM
--- NOTE | 2018-12-17 13:54 | EKG ---
Test Reason : Blood Pressure : / mmHG Vent. Rate : 081 BPM Atrial Rate : 081 BPM P-R Int : 152 ms QRS Dur : 112 ms QT Int : 404 ms P-R-T Axes : 062 051 086 degrees QTc Int : 469 ms SINUS RHYTHM WITH FREQUENT PREMATURE VENTRICULAR COMPLEXES POSSIBLE LEFT ATRIAL ENLARGEMENT INCOMPLETE LEFT BUNDLE BRANCH BLOCK NONSPECIFIC T WAVE ABNORMALITY PROLONGED QT ABNORMAL ECG WHEN COMPARED WITH ECG OF 16-DEC-2018 10:24, NO SIGNIFICANT CHANGE WAS FOUND Confirmed by DIEGO ORDAZ MD ([id number]) on 12/17/2018 1:54:22 PM Referred By: Confirmed By:DIEGO ORDAZ MD
[2018-12-17] MEDS ORDERED: IBUPROFEN 600 MG TABLET (FP) PO PRN (15:58)
[2018-12-17 18:20] VITALS: BP 130/60; PULSE 90; TEMP 98.2
[2018-12-18] MEDS ORDERED: BUMETANIDE 1 MG TABLET PO SCH (10:00)
[2018-12-18] MEDS ORDERED: LISINOPRIL 10 MG TABLET (FP) PO SCH (10:00)
--- NOTE | 2019-01-04 09:36 | EKG ---
Test Reason : Blood Pressure : / mmHG Vent. Rate : 077 BPM Atrial Rate : 077 BPM P-R Int : 158 ms QRS Dur : 114 ms QT Int : 416 ms P-R-T Axes : 054 045 089 degrees QTc Int : 470 ms SINUS RHYTHM WITH FREQUENT PREMATURE VENTRICULAR COMPLEXES POSSIBLE LEFT ATRIAL ENLARGEMENT INCOMPLETE LEFT BUNDLE BRANCH BLOCK LEFT VENTRICULAR HYPERTROPHY NONSPECIFIC T WAVE ABNORMALITY PROLONGED QT ABNORMAL ECG WHEN COMPARED WITH ECG OF 17-DEC-2018 02:34, NO SIGNIFICANT CHANGE WAS FOUND Confirmed by Jorge Nelson MD ([id number]) on 01/04/2019 9:35:40 AM Referred By: Confirmed By:Jorge Nelson MD
== END 2018-12-17 18:23 | disposition home or self-care (01) ==
LOC: JER 10:25 → JERBED 12:22 → J4S 12-17 01:18
PROVIDERS: ADMIT Internal Medicine; ATTEND Internal Medicine
PROC: 3E0333Z Introduction of Anti-inflammatory into Peripheral Vein, Percutaneous Approach (ICD-10-PCS; principal; 2018-12-16)
DX: R07.89 Other chest pain (principal); I50.22 Chronic systolic (congestive) heart failure; I11.0 Hypertensive heart disease with heart failure; E78.5 Hyperlipidemia, unspecified; F17.210 Nicotine dependence, cigarettes, uncomplicated; F10.10 Alcohol abuse, uncomplicated; E66.9 Obesity, unspecified; Z68.38 Body mass index [BMI] 38.0-38.9, adult; Z86.59 Personal history of other mental and behavioral disorders
CPT/HCPCS: 36415; 71046-TC-FY; 80048; 80053; 80307; 82550; 82553; 83735; 83880; 84100; 84484; 85025; 85027; 85379; 85610; 85651; 86140; 93005; 93010; 93306-TC; 99285-25; G0378

== ENCOUNTER 2019-02-28 23:42 | Inpatient (IN) | payer BC, OTHER ==
--- NOTE | 2019-03-01 01:12 | PDOC ---
History of Present Illness - General Chief Complaint: Chest Pain Stated Complaint: CHEST PAIN Time Seen by Provider: 03/01/19 01:11 History Source: Patient Exam Limitations: No Limitations - History of Present Illness Initial Comments: 03/01/19 01:12 Source: Patient PCP: None Cards: Dr. 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 Describes the pain as pleuritic, exertional, intermittent, and maximally 8/10 of intensity. The pain is non- radiating located in the left chest. He also endorses L rib pain for past two days. Says this pain is similar to prior CHF exacerbations. Denies any history of LE edema with his CHF, primarily effusions on prior presentations. Reports prior ECHO and stress test with unclear results (performed at [facility]) - ECHO done here 12/17/18 with EF 30-35%, LV systolic function reduced, LA dilation, RV function mildly reduced, MR and TR. Took his home ASA today. Denies any fevers, chills, nausea, vomiting, diarrhea, or other symptoms. He does not use cocaine anymore but does drink every other day (12 pack of beer) and has never had withdrawal symptoms or seizures before. All: NKDA Meds: per chart PMH: as above PSH: denies SHx: ETOH use, prior cocaine use, denies smoking Past History - Travel Traveled outside of the country in the last 30 days: No Close contact w/someone who was outside of country & ill: No - Past Medical History Allergies/Adverse Reactions: Allergies Allergy/AdvReac Type Severity Reaction Status Date / Time shrimp Allergy Verified 03/01/19 00:22 shrimp Allergy Itching Uncoded 03/01/19 00:22 Home Medications: Ambulatory Orders Atorvastatin Ca [Lipitor] 40 mg PO HS 12/16/18 Folic Acid 1 mg PO DAILY 12/16/18 Metoprolol Succinate 50 mg PO DAILY 12/16/18 Multivitamin,Therapeutic [Thera] 1 each PO DAILY 12/16/18 Spironolactone 25 mg PO DAILY 12/16/18 Acetaminophen [Tylenol .Regular Strength -] 650 mg PO Q6H PRN tablet 12/17/18 Bumetanide 2 mg PO DAILY 12/17/18 Lisinopril 10 mg PO DAILY 12/17/18 Cardiac Disorders: Yes COPD: No CHF: Yes HTN: Yes - Immunization History Immunization Up to Date: Yes - Psycho Social/Smoking Cessation Hx Smoking Status: No Smoking History: Never smoked Have you smoked in the past 12 months: No Number of Cigarettes Smoked Daily: 0 If you are a former smoker, when did you quit?: 2004 Hx Alcohol Use: No Drug/Substance Use Hx: No Substance Use Type: None Review of Systems - Review of Systems Able to Perform ROS?: Yes Is the patient limited R[place] proficient: Yes Constitutional: No: Chills, Diaphoresis, Fever, Weakness HEENTM: No: Recent change in vision, Nose Congestion, Throat Pain Respiratory: Yes: Shortness of Breath, SOB with Exertion. No: Cough, Orthopnea , SOB at Rest, Wheezing Cardiac (ROS): Yes: Chest Pain. No: Edema, Irregular Heart Rate, Lightheadedness, Palpitations, Syncope, Chest Tightness ABD/GI: No: Constipated, Diarrhea, Nausea, Poor Appetite, Poor Fluid Intake, Vomiting : No: Burning, Dysuria, Pain Musculoskeletal: No: Joint Pain, Muscle Pain, Muscle Weakness Integumentary: No: Bruising, Pruritus, Rash Neurological: Yes: Headache (mild HOWARD earlier today). No: Numbness, Tingling, Weakness Psychiatric: No: Stressors, Mood Swings, Change in Appetite Endocrine: No: Increased Thirst, Increased Urine, Unexplained Weight Gain, Unexplained Weight Loss, Change in Weight Hematologic/Lymphatic: No: Anemia, Blood Clots, Easy Bleeding All Other Systems: Reviewed and Negative *Physical Exam - Vital Signs Last Vital Signs Temp Pulse Resp BP Pulse Ox 98.6 F 108 H 16 116/82 98 02/28/19 23:42 02/28/19 23:42 02/28/19 23:42 02/28/19 23:42 02/28/19 23:42 - Physical Exam Comments: 03/01/19 01:49 Vitals reviewed, tachycardic to 100s, otherwise HDS with normal pressure Obese man, NAD, found resting in hospital bed MMM, EOMI, NCAT RRR, nl s1s2, no murmurs appreciated CTABL, normal WOB, no wheezes / rales / rhonchi Soft, nontender, nondistended WWP, no clubbing / cyanosis, mild1+ pitting edema overlying bilateral ankles Alert and oriented, CN grossly intact, MAEE Heart Score/ECG Review - History History: Slightly suspicious - Electrocardiogram EKG: Normal - Age Age: </= 45 - Risk Factors Risk Factors Heart Score: Yes Hx Hypercholesterolemia, Yes Hx Hypertension, Yes Positive family hx of cardiac disease, Yes Hx Obesity Based on the list above the patient has:: >/=3 risk factors or Hx atherosclerotic disease - Troponin Troponin: </= normal limit - Score Heart Score - Total: 2 ED Treatment Course - LABORATORY CBC & Chemistry Diagram: 03/01/19 01:30 03/01/19 01:30 Medical Decision Making - Medical Decision Making 03/01/19 01:53 33 yo M PMH HTN, HLD, CHF rEF 30-35% (12/17/18), Sleep apnea and drug related [place] ( 09/2018) with chest pain for 1 day with associated shortness of breath in the setting of not taking his bumetanide. Denies any recent cocaine use, no constitutional symptoms. Vitals notable for tachycardia to 108. DDX: R/o ACS vs costochondritis vs MSK vs less likely GERD, PE, PTX. -CBC, CMP, CP, BNP -CXR, EKG -Patient took ASA 03/01/19 02:01 -EKG with sinus tachycardia, biatrial enlargement, normal axis, normal intervals , no clear ischemic changes - similar morphologies to prior. Rhythm strip as sinus tachycardic at 107. No PVCs as seen on 12/17/18 EKG 03/01/19 02:05 -CBC without leukocytosis or anemia, Coags wnl -CMP, Trop, BNP pending 03/01/19 02:37 -Mildly elevated LFTs -Troponin 0.06, BNP 1102.8 -40mg Furosemide Dispo: Med/Surg Discharge - Discharge Information Problems reviewed: Yes Clinical Impression/Diagnosis: Elevated troponin level Condition: Stable - Admission Yes - Follow up/Referral - Patient Discharge Instructions - Post Discharge Activity
[2019-03-01 01:41] LABS: BASO % 1.2 % (0-2.0); EOS % 1.7 % (0-4.5); HEMATOCRIT 45.1 % (35.4-49); HEMOGLOBIN 14.9 GM/dL (11.7-16.9); LYMPH % 28.5 % (8-40); MCH 30.7 pg (25.7-33.7); MEAN CELL VOLUME 93.1 fl (80-96); NEUT % 59.6 % (42.8-82.8); PLATELET COUNT 165 K/MM3 (134-434); RBC 4.84 M/mm3 (4.00-5.60); RDW 14.2 % (11.9-15.9); WHITE BLOOD COUNT 7.1 K/mm3 (4.0-10.0)
[2019-03-01 01:56] LABS: INR 1.06 (0.83-1.09); PROTHROMBIN TIME (PATIENT) 12.5 SEC (9.7-13.0)
[2019-03-01] MEDS ORDERED: BUMETANIDE 1 MG TABLET PO ONE (01:58)
--- NOTE | 2019-03-01 02:01 | PDOC ---
Attending Attestation - Resident Resident Name: FrederickNico - ED Attending Attestation I have performed the following: I have examined & evaluated the patient, The case was reviewed & discussed with the resident, I agree w/resident's findings & plan - HPI HPI: 03/01/19 02:50 see resident hpi - Physicial Exam PE: 03/01/19 02:50 agree with resident exam - Medical Decision Making 03/01/19 02:50 33-year-old male with history of heart failure and polysubstance abuse complaining of shortness of breath and chest pain Chest x-ray shows increased interstitial markings, right greater than left, troponin is mildly elevated EKG shows a sinus tachycardia at 107 bpm with atrial enlargement Plan for aspirin, Lasix and admission to medical service
[2019-03-01 02:12] LABS: ALBUMIN 3.4 g/dl (3.4-5.0); BILIRUBIN,TOTAL 0.5 mg/dL (0.2-1); BLOOD UREA NITROGEN 13.7 mg/dL (7-18); CREATININE 0.9 mg/dL (0.55-1.3); N-TERMINAL BNP 1102.8 pg/ml (5-125); POTASSIUM 3.4 mmol/L (3.5-5.1); TOT PROT 6.9 g/dl (6.4-8.2)
[2019-03-01] MEDS ORDERED: FUROSEMIDE 100 MG/10 ML INJECTABLE VIAL IVPB ONE (02:47)
[2019-03-01] MEDS ORDERED: FUROSEMIDE 40 MG/4 ML INJECTABLE VIAL ONE (02:47)
[2019-03-01 03:53] LABS: COCAINE, UR NEGATIVE ng/ml (CUTOFF=300); METHADONE, UR NEGATIVE ng/ml (CUTOFF=300); OPIATES, URI NEGATIVE ng/ml (CUTOFF=300); PHENCYCLIDINE,URINE NEGATIVE ng/ml (CUTOFF=25); URINE AMPHETAMINES NEGATIVE ng/ml (CUTOFF=500); URINE BARBITURATES NEGATIVE ng/ml (CUTOFF=200); URINE BENZODIAZEPINES NEGATIVE ng/ml (CUTOFF=200)
--- NOTE | 2019-03-01 04:04 | PN ---
Teaching Attending Note Name of Resident: Pebbles Padilla ATTENDING PHYSICIAN STATEMENT I saw and evaluated the patient. I reviewed the resident's note and discussed the case with the resident. I agree with the resident's findings and plan as documented. SUBJECTIVE: 33yo M PMH HTN, HLD, CHF rEF (30-35%), Sleep apnea and drug related [place] (09/2018 ) c/o chest pain for 1 day associated with shortness of breath. Denied using cocaine recently. The pain is non-radiating located in the left chest. Reported prior ECHO and stress test with unclear results (performed at [facility]) - ECHO done here 12/17/18 with EF 30-35%, LV systolic function reduced, LA dilation , RV function mildly reduced, MR and TR OBJECTIVE: Last Vital Signs Temp Pulse Resp BP Pulse Ox 98.6 F 100 H 18 124/92 99 02/28/19 23:42 03/01/19 03:46 03/01/19 03:46 03/01/19 03:46 03/01/19 03:46 GENERAL: Well developed, well nourished. Awake and alert. No acute distress. Obese HEENT: Normocephalic, atraumatic. PERRLA, EOMI. No conjunctival pallor. Sclera are non- icteric. Moist mucous membranes. Oropharynx is clear. NECK: Supple. Full ROM. No JVD. Carotid pulses 2+ and symmetric, without bruits. No thyromegaly. No lymphadenopathy. CARDIOVASCULAR: Regular rate and rhythm. No murmurs, rubs, or gallops. Distal pulses are 2+ and symmetric. PULMONARY: No evidence of respiratory distress. Lungs clear to auscultation bilaterally. No wheezing, rales or rhonchi. ABDOMINAL: Soft. Non-tender. Non-distended. No rebound or guarding. No organomegaly. Normoactive bowel sounds. MUSCULOSKELETAL Normal range of motion at all joints. No bony deformities or tenderness. No CVA tenderness. EXTREMITIES: No cyanosis. No clubbing. No edema. No calf tenderness. SKIN: Warm and dry. Suprapubic rash likely contact dermatitis from belt NEUROLOGICAL: Alert, awake, appropriate. Cranial nerves 2-12 intact. No deficits to light touch and temperature in face, upper extremities and lower extremities. No motor deficits in the in face, upper extremities and lower extremities. Normoreflexic in the upper and lower extremities. Normal speech. Toes are down- going bilaterally. Gait is normal without ataxia. PSYCHIATRIC: Cooperative. Good eye contact. Appropriate mood and affect. Abnormal Lab Results 03/01/19 03/01/19 03/01/19 01:30 01:30 03:15 Potassium 3.4 L Random Glucose 114 H AST 98 H ALT 105 H Alkaline Phosphatase 128 H Troponin I 0.06 H B-Natriuretic Peptide 1102.8 H U Marijuana (THC) Screen Positive A* ASSESSMENT AND PLAN: 33-year-old male with chest pain given history of ACS should rule out [place]. Mildly positive troponinemia. Less likely to have CHF exacerbation at this time. Hypokalemia.Urine toxicology was positive for marijuana. Transaminitis secondary to uncertain etiology. Telemetry observation Trend troponin Aspirin Statin Echo Cardiac stress test Liver ultrasound Supplement potassium Heparin subcu for DVT prophylaxis
--- NOTE | 2019-03-01 04:13 | HP ---
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 The pain was throbbing, present in the left chest and constant. Lying on his left side make it better and breathing in and out makes it worse. Pt denies any sick contacts or recent URI. Pt rates the pain at a 8/10. Pt endorses SOB and headache worse when supine but denies palpitation or change in urine or bowel movement, nausea/vomiting/fevers or chills. PT also endorsed no nausea or vomiting ER course was notable for: (1)cbc, cmp, UA, CXR unremarkable and showed sign of increased interstitial markings R>L (2) lasix 40 (3) Recent Travel: none PAST MEDICAL HISTORY: as above PAST SURGICAL HISTORY: denies Social History: Smoking: denies Alcohol: once a week Drugs: 1/2 gram of marijuana a day, denied cocaine or other illicit Allergies shrimp Allergy (Verified 03/01/19 00:22) shrimp Allergy (Uncoded 03/01/19 00:22) Itching HOME MEDICATIONS: Home Medications Medication Instructions Recorded Atorvastatin Ca [Lipitor] 40 mg PO HS 12/16/18 Folic Acid 1 mg PO DAILY 12/16/18 Metoprolol Succinate 50 mg PO DAILY 12/16/18 Multivitamin,Therapeutic [Thera] 1 each PO DAILY 12/16/18 Spironolactone 25 mg PO DAILY 12/16/18 Acetaminophen [Tylenol .Regular 650 mg PO Q6H PRN tablet 12/17/18 Strength -] Bumetanide 2 mg PO DAILY 12/17/18 Lisinopril 10 mg PO DAILY 12/17/18 REVIEW OF SYSTEMS CONSTITUTIONAL: Absent: fever, chills, diaphoresis, generalized weakness, malaise, loss of appetite, weight change HEENT: Absent: rhinorrhea, nasal congestion, throat pain, throat swelling, difficulty swallowing, mouth swelling, ear pain, eye pain, visual changes CARDIOVASCULAR: chest pain Absent: syncope, palpitations, irregular heart rate, lightheadedness, peripheral edema RESPIRATORY: shortness of breath,orthopnea Absent: cough,, dyspnea with exertion, , wheezing, stridor, hemoptysis GASTROINTESTINAL: Absent: abdominal pain, abdominal distension, nausea, vomiting, diarrhea, constipation, melena, hematochezia GENITOURINARY: Absent: dysuria, frequency, urgency, hesitancy, hematuria, flank pain, genital pain MUSCULOSKELETAL: Absent: myalgia, arthralgia, joint swelling, back pain, neck pain SKIN: Absent: rash, itching, pallor HEMATOLOGIC/IMMUNOLOGIC: Absent: easy bleeding, easy bruising, lymphadenopathy, frequent infections ENDOCRINE: Absent: unexplained weight gain, unexplained weight loss, heat intolerance, cold intolerance NEUROLOGIC: headache Absent: focal weakness or paresthesias, dizziness, unsteady gait, seizure, mental status changes, bladder or bowel incontinence PSYCHIATRIC: Absent: anxiety, depression, suicidal or homicidal ideation, hallucinations. PHYSICAL EXAMINATION Vital Signs - 24 hr 02/28/19 03/01/19 03/01/19 23:42 01:43 02:44 Temperature 98.6 F Pulse Rate 108 H Pulse Rate [ 100 H Apical] Respiratory 16 18 Rate Blood Pressure 116/82 Blood Pressure [Left Arm] O2 Sat by Pulse 98 99 99 Oximetry (%) 03/01/19 03:46 Temperature Pulse Rate Pulse Rate [ 100 H Apical] Respiratory 18 Rate Blood Pressure Blood Pressure 124/92 [Left Arm] O2 Sat by Pulse 99 Oximetry (%) GENERAL: Awake, alert, and fully oriented, in mild distress. HEAD: Normal with no signs of trauma. EYES: Pupils equal, round and reactive to light, extraocular movements intact, sclera anicteric, conjunctiva clear. No lid lag. EARS, NOSE, THROAT: oropharynx clear without exudates. Moist mucous membranes. NECK: Normal range of motion, supple without lymphadenopathy, JVD, or masses. LUNGS: Breath sounds equal, clear to auscultation bilaterally. No wheezes, and no crackles. No accessory muscle use. HEART: Regular rate and rhythm, normal S1 and S2 without murmur, rub or gallop. ABDOMEN: Soft, nontender, not distended, normoactive bowel sounds, no guarding, no rebound, no masses. No hepatomegaly or splenomegaly. MUSCULOSKELETAL: Normal range of motion at all joints. No bony deformities or tenderness. No CVA tenderness. UPPER EXTREMITIES: 2+ pulses, warm, well-perfused. No cyanosis. No clubbing. No peripheral edema. LOWER EXTREMITIES: 2+ pulses, warm, well-perfused. No calf tenderness. No peripheral edema. NEUROLOGICAL: Cranial nerves II-XII intact. Normal speech. Normal gait. gross motor and sensation intact PSYCHIATRIC: Cooperative. Good eye contact. Appropriate mood and affect. SKIN: Warm, dry, normal turgor, no rashes or lesions noted, normal capillary refill. Laboratory Results - last 24 hr 03/01/19 03/01/19 03/01/19 01:30 01:30 01:30 WBC 7.1 RBC 4.84 Hgb 14.9 Hct 45.1 MCV 93.1 MCH 30.7 MCHC 33.0 RDW 14.2 Plt Count 165 MPV 11.0 Absolute Neuts (auto) 4.2 Neutrophils % 59.6 Lymphocytes % 28.5 Monocytes % 9.0 Eosinophils % 1.7 Basophils % 1.2 D Nucleated RBC % 0 PT with INR INR Sodium 142 Potassium 3.4 L Chloride 105 Carbon Dioxide 28 Anion Gap 9 BUN 13.7 Creatinine 0.9 Est GFR (CKD-EPI)AfAm 128.70 Est GFR (CKD-EPI)NonAf 111.04 Random Glucose 114 H Calcium 9.0 Total Bilirubin 0.5 AST 98 H ALT 105 H Alkaline Phosphatase 128 H Creatine Kinase 218 Creatine Kinase Index 1.0 CK-MB (CK-2) 2.2 Troponin I 0.06 H B-Natriuretic Peptide 1102.8 H Total Protein 6.9 Albumin 3.4 Opiates Screen Methadone Screen Barbiturate Screen Phencyclidine Screen Ur Amphetamines Screen MDMA (Ecstasy) Screen Benzodiazepines Screen Cocaine Screen U Marijuana (THC) Screen Alcohol, Quantitative 03/01/19 03/01/19 03/01/19 01:30 01:30 02:50 WBC RBC Hgb Hct MCV MCH MCHC RDW Plt Count MPV Absolute Neuts (auto) Neutrophils % Lymphocytes % Monocytes % Eosinophils % Basophils % Nucleated RBC % PT with INR 12.50 INR 1.06 Sodium Potassium Chloride Carbon Dioxide Anion Gap BUN Creatinine Est GFR (CKD-EPI)AfAm Est GFR (CKD-EPI)NonAf Random Glucose Calcium Total Bilirubin AST ALT Alkaline Phosphatase Creatine Kinase Creatine Kinase Index CK-MB (CK-2) Troponin I B-Natriuretic Peptide Cancelled Total Protein Albumin Opiates Screen Methadone Screen Barbiturate Screen Phencyclidine Screen Ur Amphetamines Screen MDMA (Ecstasy) Screen Benzodiazepines Screen Cocaine Screen U Marijuana (THC) Screen Alcohol, Quantitative < 3.0 03/01/19 03:15 WBC RBC Hgb Hct MCV MCH MCHC RDW Plt Count MPV Absolute Neuts (auto) Neutrophils % Lymphocytes % Monocytes % Eosinophils % Basophils % Nucleated RBC % PT with INR INR Sodium Potassium Chloride Carbon Dioxide Anion Gap BUN Creatinine Est GFR (CKD-EPI)AfAm Est GFR (CKD-EPI)NonAf Random Glucose Calcium Total Bilirubin AST ALT Alkaline Phosphatase Creatine Kinase Creatine Kinase Index CK-MB (CK-2) Troponin I B-Natriuretic Peptide Total Protein Albumin Opiates Screen Negative Methadone Screen Negative Barbiturate Screen Negative Phencyclidine Screen Negative Ur Amphetamines Screen Negative MDMA (Ecstasy) Screen Negative Benzodiazepines Screen Negative Cocaine Screen Negative U Marijuana (THC) Screen Positive A* Alcohol, Quantitative ASSESSMENT/PLAN: 33 y/o M PMH of HTN, HLD, rEF CHF (30-35%), CORNELL, 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 trend repeat trop at 7:30 am EkG no interval change. CXR increased interstitial markings R>L Aspirin 81mg daily cardiology consult- Dr James- NPO in case of stress test. last one was on 09/25 and it was normal repeat echo last echo was on 12/27 and showed rEF 30-35%, LV dysfunction,LA dilation, RV function reduced, MR, TR lipid panel tylenol 650 Q6 for pain control u tox neg except for marijuana which rules out cocaine induced chest pain HTN cont lisinopril 10 PO dailt r EFCHF metoprolol spirinolactone 25 PO daily, metoprolol 50mg PO daily, bymetanide 2 mg PO daily HLD atorvastatin 40 DVT Hep subQ Visit type - Emergency Visit Emergency Visit: Yes ED Registration Date: 03/01/19 Care time: The patient presented to the Emergency Department on the above date and was hospitalized for further evaluation of their emergent condition. - New Patient This patient is new to me today: Yes Date on this admission: 03/01/19 - Critical Care Critical Care patient: No ATTENDING PHYSICIAN STATEMENT I saw and evaluated the patient. I reviewed the resident's note and discussed the case with the resident. I agree with the resident's findings and plan as documented. SUBJECTIVE: OBJECTIVE: ASSESSMENT AND PLAN:
[2019-03-01] MEDS ORDERED: ACETAMINOPHEN 325 MG TABLET (FP) PO PRN ×2 (04:14→04:18)
[2019-03-01 06:05] LABS: BASO % 1.5 % (0-2.0); EOS % 2.2 % (0-4.5); HEMATOCRIT 45.8 % (35.4-49); HEMOGLOBIN 15.2 GM/dL (11.7-16.9); LYMPH % 30.2 % (8-40); MCH 30.8 pg (25.7-33.7); MCHC 33.3 g/dl (32.0-35.9); MEAN CELL VOLUME 92.5 fl (80-96); MEAN PLT VOLUME 11.2 fl (7.5-11.1); MONO % 7.9 % (3.8-10.2); NEUT % 58.2 % (42.8-82.8); PLATELET COUNT 170 K/MM3 (134-434); RBC 4.95 M/mm3 (4.00-5.60); RDW 14.4 % (11.9-15.9); WHITE BLOOD COUNT 6.5 K/mm3 (4.0-10.0)
[2019-03-01 06:35] LABS: CHOLESTEROL 206 mg/dL (50-200); HDL CHOLESTEROL 46 mg/dL (40-60); LDL CHOLESTEROL (ONLY SJRH) 132 mg/dL (5-100); TRIGLYCERIDES 216 mg/dL (0-150)
[2019-03-01] MEDS ORDERED: HEPARIN NA (PORCINE) 5,000 UNITS/ML 1ML VIAL ONE (06:36)
[2019-03-01] MEDS: HEPARIN NA (PORCINE) 5,000 UNITS/ML 1ML VIAL SQ SCH ×3 (06:39→23:29)
[2019-03-01 06:41] LABS: ALBUMIN 3.6 g/dl (3.4-5.0); BILIRUBIN,TOTAL 0.6 mg/dL (0.2-1); BLOOD UREA NITROGEN 12.1 mg/dL (7-18); CALCIUM 8.8 mg/dL (8.5-10.1); CREATININE 0.9 mg/dL (0.55-1.3); MAGNESIUM 1.6 mg/dL (1.8-2.4); POTASSIUM 3.3 mmol/L (3.5-5.1)
[2019-03-01] MEDS ORDERED: MAGNESIUM OXIDE 400 MG TABLET (FP) PO ONE (08:15)
[2019-03-01] MEDS ORDERED: POTASSIUM CHLORIDE TABS 20 MEQ TABLET.ER (FP) PO ONE ×2 (08:15→08:46)
[2019-03-01] MEDS ORDERED: MAGNESIUM OXIDE 400 MG TABLET (FP) ONE (08:46)
[2019-03-01] MEDS: LISINOPRIL 10 MG TABLET (FP) PO SCH (10:00)
[2019-03-01] MEDS: SPIRONOLACTONE 25 MG TABLET (FP) PO SCH (10:00)
[2019-03-01] MEDS ORDERED: MULTIVITAMIN THERAPEUTIC PO SCH (10:00)
[2019-03-01] MEDS ORDERED: BUMETANIDE 1 MG TABLET PO SCH (10:00)
[2019-03-01] MEDS: MULTIVITAMINS THER W-MINERALS COMBO TABLET (FP) PO SCH (10:00)
[2019-03-01] MEDS: ASPIRIN 81 MG CHEWABLE TABLETS PO SCH (10:00)
[2019-03-01] MEDS ORDERED: BUMETANIDE 2 MG PO SCH (10:00)
[2019-03-01] MEDS: FOLIC ACID 1 MG TABLET (FP) PO SCH (10:00)
--- NOTE | 2019-03-01 12:04 | ECHO ---
Name: DENA BAZAN Exam:Adult Echocardiogram Study Date: 03/01/2019 09:06 AM Age: 33 yrs Reason For Study: CHEST PAIN SOB Height: 68 in MMode/2D Measurements & Calculations IVSd: 0.94 cm Ao root diam: 3.1 cm LVIDd: 6.8 cm LA dimension: 4.8 cm LVIDs: 5.9 cm LVPWd: 1.3 cm LVPWs: 1.6 cm EDV(Teich): 237.0 ml ESV(Teich): 174.7 ml LAV (MOD-bp): 82.0 ml Doppler Measurements & Calculations Ao V2 max: 95.6 cm/sec LV V1 max P.81 mmHg Ao max P.7 mmHg LV V1 max: 44.9 cm/sec MR max jett: 434.4 cm/sec PA V2 max: 75.3 cm/sec MR max P.5 mmHg PA max P.3 mmHg Left Ventricle The left ventricle is moderately dilated. Ejection Fraction = 20%. Left ventricular systolic function is severely reduced. There is severe global hypokinesis of the left ventricle. Right Ventricle The right ventricle is mildly dilated. The right ventricular systolic function is moderately reduced. Atria The left atrium is mildly dilated. Right atrial size is normal. Mitral Valve The mitral valve is normal. There is trace mitral regurgitation. Tricuspid Valve The tricuspid valve is normal. There is trace tricuspid regurgitation. There was insufficient TR dete cted to calculate RV systolic pressure. Aortic Valve The aortic valve is not well visualized. The aortic valve opens well. No aortic regurgitation is pres ent. Pulmonic Valve The pulmonic valve is not well seen, but is grossly normal. There is no pulmonic valvular regurgitati on. Great Vessels The aortic root is normal size. Moderately dilated inferior vena cava. Pericardium/Pleura There is no pericardial effusion. Interpretation Summary The left ventricle is moderately dilated. Left ventricular systolic function is severely reduced. There is severe global hypokinesis of the left ventricle. The right ventricle is mildly dilated. The right ventricular systolic function is moderately reduced. The left atrium is mildly dilated. There is trace mitral regurgitation. There is trace tricuspid regurgitation. Moderately dilated inferior vena cava There is no pericardial effusion. MD Maximus Roldan 03/01/2019 12:03 PM
--- NOTE | 2019-03-01 12:08 | EKG ---
Test Reason : Blood Pressure : / mmHG Vent. Rate : 107 BPM Atrial Rate : 107 BPM P-R Int : 150 ms QRS Dur : 102 ms QT Int : 360 ms P-R-T Axes : 069 083 078 degrees QTc Int : 480 ms SINUS TACHYCARDIA BIATRIAL ENLARGEMENT NONSPECIFIC ST ABNORMALITY ABNORMAL ECG WHEN COMPARED WITH ECG OF 17-DEC-2018 04:07, PREMATURE VENTRICULAR COMPLEXES ARE NO LONGER PRESENT Confirmed by Jorge Nelson MD ([id number]) on 03/01/2019 12:08:37 PM Referred By: Confirmed By:Jorge Nelson MD
--- NOTE | 2019-03-01 13:19 | CON.CARD ---
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 Admitted for similar pain 12/2018. Reportedly normal cardiac cath 12/2017 at [facility]. Has not seen a nail specialist recently. Still has chest pain currently, constant, center of chest. Also with dyspnea on exertion although he says this is stable. - History Source History Provided By: Patient Limitations to Obtaining History: No Limitations - Alcohol/Substance Use Hx Alcohol Use: Yes - Smoking History Smoking history: Current every day smoker Have you smoked in the past 12 months: Yes Aproximately how many cigarettes per day: 0 Home Medications - Allergies Allergies/Adverse Reactions: Allergies Allergy/AdvReac Type Severity Reaction Status Date / Time shrimp Allergy Verified 03/01/19 00:22 shrimp Allergy Itching Uncoded 03/01/19 00:22 Family Disease History - Family Disease History Family History: Unremarkable Review of Systems - Review of Systems Constitutional: reports: No Symptoms Eyes: reports: No Symptoms HENT: reports: No Symptoms Neck: reports: No Symptoms Cardiovascular: reports: No Symptoms Respiratory: reports: No Symptoms Gastrointestinal: reports: No Symptoms Genitourinary: reports: No Symptoms Musculoskeletal: reports: No Symptoms Integumentary: reports: No Symptoms Neurological: reports: No Symptoms Endocrine: reports: No Symptoms Hematology/Lymphatic: reports: No Symptoms Psychiatric: reports: No Symptoms Vital Signs: Vital Signs Period Temp Pulse Resp BP Sys/Tucker Pulse Ox Last 24 Hr 97.9 F-98.6 F 100-108 16-19 116-124/82-92 96-99 Constitutional: Yes: Well Nourished, No Distress, Calm Eyes: Yes: Conjunctiva Clear, EOM Intact HENT: Yes: Atraumatic, Normocephalic Neck: Yes: Supple, Trachea Midline Respiratory: Yes: Regular, CTA Bilaterally Gastrointestinal: Yes: Normal Bowel Sounds, Soft Cardiovascular: Yes: Regular Rate and Rhythm JVD: No Carotid Bruit: No PMI: Non-Displaced Heart Sounds: Yes: S1, S2 Extremities: No: Cold Edema: No Neurological: Yes: Alert, Oriented Psychiatric: No: Agitated Laboratory Last Values WBC 6.5 K/mm3 (4.0-10.0) 03/01/19 05:30 RBC 4.95 M/mm3 (4.00-5.60) 03/01/19 05:30 Hgb 15.2 GM/dL (11.7-16.9) 03/01/19 05:30 Hct 45.8 % (35.4-49) 03/01/19 05:30 MCV 92.5 fl (80-96) 03/01/19 05:30 MCH 30.8 pg (25.7-33.7) 03/01/19 05:30 MCHC 33.3 g/dl (32.0-35.9) 03/01/19 05:30 RDW 14.4 % (11.9-15.9) 03/01/19 05:30 Plt Count 170 K/MM3 (134-434) 03/01/19 05:30 MPV 11.2 fl (7.5-11.1) H 03/01/19 05:30 Absolute Neuts (auto) 3.8 K/mm3 (1.5-8.0) 03/01/19 05:30 Neutrophils % 58.2 % (42.8-82.8) 03/01/19 05:30 Lymphocytes % 30.2 % (8-40) 03/01/19 05:30 Monocytes % 7.9 % (3.8-10.2) 03/01/19 05:30 Eosinophils % 2.2 % (0-4.5) 03/01/19 05:30 Basophils % 1.5 % (0-2.0) 03/01/19 05:30 Nucleated RBC % 0 % (0-0) 03/01/19 05:30 PT with INR 12.50 SEC (9.7-13.0) 03/01/19 01:30 INR 1.06 (0.83-1.09) 03/01/19 01:30 Sodium 139 mmol/L (136-145) 03/01/19 05:30 Potassium 3.3 mmol/L (3.5-5.1) L 03/01/19 05:30 Chloride 103 mmol/L (98-107) 03/01/19 05:30 Carbon Dioxide 27 mmol/L (21-32) 03/01/19 05:30 Anion Gap 10 MMOL/L (8-16) 03/01/19 05:30 BUN 12.1 mg/dL (7-18) 03/01/19 05:30 Creatinine 0.9 mg/dL (0.55-1.3) 03/01/19 05:30 Est GFR (CKD-EPI)AfAm 128.70 03/01/19 05:30 Est GFR (CKD-EPI)NonAf 111.04 03/01/19 05:30 Random Glucose 106 mg/dL (74-106) 03/01/19 05:30 Hemoglobin A1c % 5.8 % (4.2-6.3) 03/01/19 05:30 Calcium 8.8 mg/dL (8.5-10.1) 03/01/19 05:30 Phosphorus 4.0 mg/dL (2.5-4.9) 03/01/19 05:30 Magnesium 1.6 mg/dL (1.8-2.4) L 03/01/19 05:30 Total Bilirubin 0.6 mg/dL (0.2-1) 03/01/19 05:30 AST 86 U/L (15-37) H 03/01/19 05:30 ALT 103 U/L (13-61) H 03/01/19 05:30 Alkaline Phosphatase 125 U/L (45-117) H 03/01/19 05:30 Creatine Kinase 218 U/L (26-308) 03/01/19 01:30 Creatine Kinase Index 1.0 % (0.0-5.0) 03/01/19 01:30 CK-MB (CK-2) 2.2 ng/mL (0.5-3.6) 03/01/19 01:30 Troponin I 0.05 ng/ml (0.00-0.05) 03/01/19 08:45 B-Natriuretic Peptide 1102.8 pg/ml (5-125) H 03/01/19 01:30 Total Protein 7.0 g/dl (6.4-8.2) 03/01/19 05:30 Albumin 3.6 g/dl (3.4-5.0) 03/01/19 05:30 Triglycerides 216 mg/dL (0-150) H 03/01/19 05:30 Cholesterol 206 mg/dL (50-200) H 03/01/19 05:30 Total LDL Cholesterol 132 mg/dL (5-100) H 03/01/19 05:30 HDL Cholesterol 46 mg/dL (40-60) 03/01/19 05:30 TSH 4.27 uIU/ml (0.358-3.74) H 03/01/19 05:30 Opiates Screen Negative ng/ml (IWKPJL=037) 03/01/19 03:15 Methadone Screen Negative ng/ml (XPPSHE=347) 03/01/19 03:15 Barbiturate Screen Negative ng/ml (NRMXJH=841) 03/01/19 03:15 Phencyclidine Screen Negative ng/ml (CUTOFF=25) 03/01/19 03:15 Ur Amphetamines Screen Negative ng/ml (ZDCZII=338) 03/01/19 03:15 MDMA (Ecstasy) Screen Negative ng/ml (SRAKDB=981) 03/01/19 03:15 Benzodiazepines Screen Negative ng/ml (FBESVX=988) 03/01/19 03:15 Cocaine Screen Negative ng/ml (OKIJQC=637) 03/01/19 03:15 U Marijuana (THC) Screen Positive ng/ml (CUTOFF=50) A* 03/01/19 03:15 Alcohol, Quantitative < 3.0 mg/dL (0.0-5.0) 03/01/19 02:50 Assessment/Plan EKG: sinus tach, no ischemic changes CXR: no congestion echo 02/2019 mod dilated LV, severely reduced LV function, severe global hypokinesis of LV, RV mildly dilated, RV function mod reduced, LA mildly dilated , tr MR, tr TR, mod dilated IVC Chest pain - reportedly normal cath at [place] in 09/2017 as part of cardiomyopathy workup - trop neg x2 - tox screen neg for cocaine - echo shows reduced LV function, known chronic systolic HF - likely MSK, would defer stress test given normal cath a year ago, atypical symptoms shortness of breath, acute on chronic systolic HF 2/2 cocaine use - CXR with increased interstitial markings yesterday, received IV lasix x1 - still feels short of breath, elevated LFTs may represent hepatic congestion, dilated IVC on echo - has had poor follow up for management of CHF - he does not specify when he last saw an outpatient doctor but notes his medications are nearly out - echo shows worsening LV function - lasix 80 mg IV daily (was on bumex 2 mg daily at home), monitor Cr, lytes, daily weights - cont spironolactone, metoprolol, lisinopril HLD - cont statin
[2019-03-01] MEDS: FUROSEMIDE 40 MG/4 ML INJECTABLE VIAL IVPB SCH (14:05)
--- NOTE | 2019-03-01 14:23 | PN ---
Teaching Attending Note Name of Resident: Kalyani Gallardo ATTENDING PHYSICIAN STATEMENT I saw and evaluated the patient. I reviewed the resident's note and discussed the case with the resident. I agree with the resident's findings and plan as documented. SUBJECTIVE: No fever or chills. cont to have CP. cont to have L sided CP. no cough , denies any recent cocain use in months . cont to use marijuana OBJECTIVE: NAD CV: RRR, no MRG , No JVD Lungs: CATB Ext : No edema or erythema . Abd: soft, NT, ND , NL BS . slightly positive hepato jugular reflux TTP over L breast area. 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 1- Acute systoic heart failure. - lasix IV. appreciate card help - cont spironolactone - strict I&O - weight . - cont BB and ACEI - echo with severely reduced EF, worse than previous EF on 12/27. - Will d/w card the need for life vest before 2- CP: reproducible on exam. trop was slightly elevated 0.06 then 0.5. EKG with sinus rhythm, Nl axis and non specific St abnormalities. - had neg cath per notes in 09/25 when first diagnosed with CMP. 3- Transaminitis: he always had them ( except for ALk phos), could be due to chroncihepatic congestion in addition to fatty liver and statins - no tenderness in RUQ. no concern fro obstruction . will not investigate further 4- hyperlipidemia: despite LDl not being at goal , will hold off increasing statins due to LFTs abn 5- replete hypokalemia dvt Px: heparin HLOC . tele
--- NOTE | 2019-03-01 15:58 | PN ---
Physical Exam: SUBJECTIVE: Patient seen and examined in the morning. He was complaining of chest pain that still rated at 7-8/10, and shortness of breath. He had no complaints of nausea, vomiting, diarrhea, or pain in his extremities. OBJECTIVE: Vital Signs Period Temp Pulse Resp BP Sys/Tucker Pulse Ox Last 24 Hr 97.9 F-98.6 F 100-108 16-19 116-129/82-92 96-99 GENERAL: The patient is awake, alert, and fully oriented. HEAD: Normal with no signs of trauma. EYES: PERRL, extraocular movements intact, sclera anicteric, conjunctiva clear. No ptosis. ENT: Ears normal, nares patent, oropharynx clear without exudates, moist mucous membranes. NECK: Trachea midline, full range of motion, supple. LUNGS: Breath sounds equal, clear to auscultation bilaterally, no wheezes, no crackles, no accessory muscle use. HEART: Regular rate and rhythm, S1, S2 without murmur, rub or gallop. Tender to palpation over the left breast. ABDOMEN: Soft, nontender, nondistended, normoactive bowel sounds, no guarding, no rebound. EXTREMITIES: 2+ pulses, warm, well-perfused, no edema. NEUROLOGICAL: Cranial nerves II through XII grossly intact. Normal speech, normal gait. PSYCH: Normal mood, normal affect. SKIN: Warm, dry, normal turgor, no rashes or lesions noted Laboratory Results - last 24 hr CBC,CMP WBC 6.5 K/mm3 (4.0-10.0) 03/01/19 05:30 RBC 4.95 M/mm3 (4.00-5.60) 03/01/19 05:30 Hgb 15.2 GM/dL (11.7-16.9) 03/01/19 05:30 Hct 45.8 % (35.4-49) 03/01/19 05:30 MCV 92.5 fl (80-96) 03/01/19 05:30 MCH 30.8 pg (25.7-33.7) 03/01/19 05:30 MCHC 33.3 g/dl (32.0-35.9) 03/01/19 05:30 RDW 14.4 % (11.9-15.9) 03/01/19 05:30 Plt Count 170 K/MM3 (134-434) 03/01/19 05:30 MPV 11.2 fl (7.5-11.1) H 03/01/19 05:30 Absolute Neuts (auto) 3.8 K/mm3 (1.5-8.0) 03/01/19 05:30 Neutrophils % 58.2 % (42.8-82.8) 03/01/19 05:30 Lymphocytes % 30.2 % (8-40) 03/01/19 05:30 Monocytes % 7.9 % (3.8-10.2) 03/01/19 05:30 Eosinophils % 2.2 % (0-4.5) 03/01/19 05:30 Basophils % 1.5 % (0-2.0) 03/01/19 05:30 Nucleated RBC % 0 % (0-0) 03/01/19 05:30 Sodium 139 mmol/L (136-145) 03/01/19 05:30 Potassium 3.3 mmol/L (3.5-5.1) L 03/01/19 05:30 Chloride 103 mmol/L (98-107) 03/01/19 05:30 Carbon Dioxide 27 mmol/L (21-32) 03/01/19 05:30 Anion Gap 10 MMOL/L (8-16) 03/01/19 05:30 BUN 12.1 mg/dL (7-18) 03/01/19 05:30 Creatinine 0.9 mg/dL (0.55-1.3) 03/01/19 05:30 Est GFR (CKD-EPI)AfAm 128.70 03/01/19 05:30 Est GFR (CKD-EPI)NonAf 111.04 03/01/19 05:30 Random Glucose 106 mg/dL (74-106) 03/01/19 05:30 Hemoglobin A1c % 5.8 % (4.2-6.3) 03/01/19 05:30 Calcium 8.8 mg/dL (8.5-10.1) 03/01/19 05:30 Phosphorus 4.0 mg/dL (2.5-4.9) 03/01/19 05:30 Magnesium 1.6 mg/dL (1.8-2.4) L 03/01/19 05:30 Total Bilirubin 0.6 mg/dL (0.2-1) 03/01/19 05:30 AST 86 U/L (15-37) H 03/01/19 05:30 ALT 103 U/L (13-61) H 03/01/19 05:30 Alkaline Phosphatase 125 U/L (45-117) H 03/01/19 05:30 Creatine Kinase 218 U/L (26-308) 03/01/19 01:30 Creatine Kinase Index 1.0 % (0.0-5.0) 03/01/19 01:30 CK-MB (CK-2) 2.2 ng/mL (0.5-3.6) 03/01/19 01:30 Troponin I 0.05 ng/ml (0.00-0.05) 03/01/19 08:45 B-Natriuretic Peptide 1102.8 pg/ml (5-125) H 03/01/19 01:30 Total Protein 7.0 g/dl (6.4-8.2) 03/01/19 05:30 Albumin 3.6 g/dl (3.4-5.0) 03/01/19 05:30 Triglycerides 216 mg/dL (0-150) H 03/01/19 05:30 Cholesterol 206 mg/dL (50-200) H 03/01/19 05:30 Total LDL Cholesterol 132 mg/dL (5-100) H 03/01/19 05:30 HDL Cholesterol 46 mg/dL (40-60) 03/01/19 05:30 TSH 4.27 uIU/ml (0.358-3.74) H 03/01/19 05:30 Active Medications Generic Name Dose Route Start Last Admin Trade Name Freq PRN Reason Stop Dose Admin Aspirin 81 mg 03/01/19 10:00 03/01/19 10:00 Asa - PO Not Given DAILY [facility] Atorvastatin Calcium 40 mg 03/01/19 22:00 Lipitor - PO HS [facility] Folic Acid 1 mg 03/01/19 10:00 03/01/19 10:00 Folic Acid - PO Not Given DAILY [facility] Furosemide 80 mg 03/01/19 13:30 03/01/19 14:05 Lasix Injection - IVPB 80 mg DAILY [facility] Administration Heparin Sodium (Porcine) 5,000 unit 03/01/19 06:00 03/01/19 14:04 Heparin - SQ Not Given TID [facility] Lisinopril 10 mg 03/01/19 10:00 03/01/19 10:00 Prinivil PO Not Given DAILY [facility] Metoprolol Succinate 50 mg 03/01/19 10:00 03/01/19 10:00 Toprol Xl - PO Not Given DAILY [facility] Multivitamins/Minerals 1 each 03/01/19 10:00 03/01/19 10:00 Theragran-M PO Not Given DAILY [facility] Spironolactone 25 mg 03/01/19 10:00 03/01/19 10:00 Aldactone - PO Not Given DAILY [facility] ASSESSMENT/PLAN: 33 M with PMH of rEF CHF (30-35%), HTN, HLD, CORNELL, 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 1) CHF exacerbation Echo showed: EF of 20%, Severely reduced LV function, severe global hypokinesis of LV. Continue Spironolactone 25 mg PO Daily Continue Metoprolol 50 mg PO Daily Continue Lisonipril 10 mg PO Daily Continue Lasix 80 mg IV Daily Continue ASA 81 mg PO Daily Strict I&O Daily weights Discuss with cardiology patient qualifications for life vest 2) Chest Pain Troponin levels decreased. Chest pain likely due to musculoskeletal origin. Consider ketorolac for pain management if pain persists Negative cath in 2018. 3) Transaminitis Elevated transaminase in previous admission Component may be related to congestion due to HF. 4)HLD Continue atorvastatin 40 mg PO daily 5) Hypokalemia Monitor CMP Given 40 mEq of K-Dur F:No fluids E:Continue monitoring Magnesium and Potassium N:Sodium restricted diet. Dispo: Admitted to Telemetry DVT: Heparin 5000 SQ Visit type - Emergency Visit Emergency Visit: Yes ED Registration Date: 03/01/19 Care time: The patient presented to the Emergency Department on the above date and was hospitalized for further evaluation of their emergent condition. - New Patient This patient is new to me today: Yes Date on this admission: 03/01/19 - Critical Care Critical Care patient: No ATTENDING PHYSICIAN STATEMENT I saw and evaluated the patient. I reviewed the resident's note and discussed the case with the resident. I agree with the resident's findings and plan as documented. SUBJECTIVE: OBJECTIVE: ASSESSMENT AND PLAN:
[2019-03-01] MEDS ORDERED: IBUPROFEN 600 MG TABLET (FP) PO ONE ×2 (22:31→22:37)
[2019-03-01] MEDS ORDERED: MELATONIN 5 MG TABLETS PO ONE (22:31)
[2019-03-01] MEDS ORDERED: ATORVASTATIN CA 40 MG TABLET (FP) ONE (23:45)
[2019-03-01] MEDS: ATORVASTATIN CA 40 MG TABLET (FP) PO SCH (23:47)
[2019-03-02 03:48] VITALS: BMI 38.0
[2019-03-02] MEDS: HEPARIN NA (PORCINE) 5,000 UNITS/ML 1ML VIAL SQ SCH ×3 (06:28→22:01)
[2019-03-02 07:50] LABS: BASO % 0.7 % (0-2.0); EOS % 2.4 % (0-4.5); HEMATOCRIT 47.7 % (35.4-49); LYMPH % 32.4 % (8-40); MCH 30.8 pg (25.7-33.7); MCHC 33.4 g/dl (32.0-35.9); MEAN PLT VOLUME 11.4 fl (7.5-11.1); MONO % 7.7 % (3.8-10.2); NEUT % 56.8 % (42.8-82.8); PLATELET COUNT 190 K/MM3 (134-434); RBC 5.19 M/mm3 (4.00-5.60); RDW 14.1 % (11.9-15.9); WHITE BLOOD COUNT 6.4 K/mm3 (4.0-10.0)
[2019-03-02 08:43] LABS: BLOOD UREA NITROGEN 15.4 mg/dL (7-18); CREATININE 0.9 mg/dL (0.55-1.3); POTASSIUM 3.2 mmol/L (3.5-5.1)
[2019-03-02 08:44] LABS: ALBUMIN 3.7 g/dl (3.4-5.0); BILIRUBIN,TOTAL 1.2 mg/dL (0.2-1); CALCIUM 8.6 mg/dL (8.5-10.1); TOT PROT 7.3 g/dl (6.4-8.2)
[2019-03-02] MEDS ORDERED: PT OWN MED DRAWER 7, Y5N ONE (09:17)
[2019-03-02] MEDS ORDERED: POTASSIUM CHLORIDE TABS 20 MEQ TABLET.ER (FP) PO ONE ×2 (09:45→11:30)
--- NOTE | 2019-03-02 09:55 | EKG ---
Test Reason : Blood Pressure : / mmHG Vent. Rate : 097 BPM Atrial Rate : 097 BPM P-R Int : 144 ms QRS Dur : 108 ms QT Int : 386 ms P-R-T Axes : 066 066 095 degrees QTc Int : 490 ms SINUS RHYTHM WITH OCCASIONAL PREMATURE VENTRICULAR COMPLEXES POSSIBLE LEFT ATRIAL ENLARGEMENT NONSPECIFIC T WAVE ABNORMALITY PROLONGED QT ABNORMAL ECG WHEN COMPARED WITH ECG OF 01-MAR-2019 11:26, NO SIGNIFICANT CHANGE WAS FOUND Confirmed by BRODIE GALLEGOS, MARGI ([id number]) on 03/02/2019 9:54:43 AM Referred By: Confirmed By:MARGI CALLOWAY MD
[2019-03-02] MEDS ORDERED: FUROSEMIDE 40 MG/4 ML INJECTABLE VIAL IVPUSH SCH (10:00)
[2019-03-02] MEDS: FOLIC ACID 1 MG TABLET (FP) PO SCH (10:04)
[2019-03-02] MEDS: MULTIVITAMINS THER W-MINERALS COMBO TABLET (FP) PO SCH (10:04)
[2019-03-02] MEDS: LISINOPRIL 10 MG TABLET (FP) PO SCH (10:04)
[2019-03-02] MEDS: ASPIRIN 81 MG CHEWABLE TABLETS PO SCH (10:04)
[2019-03-02] MEDS: SPIRONOLACTONE 25 MG TABLET (FP) PO SCH (10:04)
--- NOTE | 2019-03-02 11:40 | PN ---
Progress Note (short form) - Note Progress Note: s: sob improving, no chest pain, palps, dizziness Current Medications Aspirin (Asa -) 81 mg PO DAILY [facility] Last Admin: 03/02/19 10:04 Dose: 81 mg Atorvastatin Calcium (Lipitor -) 40 mg PO HS [facility] Last Admin: 03/01/19 23:47 Dose: 40 mg Folic Acid (Folic Acid -) 1 mg PO DAILY [facility] Last Admin: 03/02/19 10:04 Dose: 1 mg Furosemide (Lasix Injection -) 80 mg IVPB DAILY [facility] Last Admin: 03/01/19 14:05 Dose: 80 mg Heparin Sodium (Porcine) (Heparin -) 5,000 unit SQ TID [facility] Last Admin: 03/02/19 06:28 Dose: Not Given Lisinopril (Prinivil) 10 mg PO DAILY [facility] Last Admin: 03/02/19 10:04 Dose: 10 mg Metoprolol Succinate (Toprol Xl -) 50 mg PO DAILY [facility] Last Admin: 03/02/19 10:05 Dose: 50 mg Multivitamins/Minerals (Theragran-M) 1 each PO DAILY [facility] Last Admin: 03/02/19 10:04 Dose: 1 each Potassium Chloride (K-Dur -) 20 meq PO BID [facility] Stop: 03/04/19 10:01 Spironolactone (Aldactone -) 25 mg PO DAILY [facility] Last Admin: 03/02/19 10:04 Dose: 25 mg Vital Signs Period Temp Pulse Resp BP Sys/Tucker Pulse Ox Last 24 Hr 98.4 F-98.6 F 78-106 16-18 103-129/60-90 94-99 Constitutional: Yes: Well Nourished, No Distress, Calm Eyes: Yes: Conjunctiva Clear, EOM Intact HENT: Yes: Atraumatic, Normocephalic Neck: Yes: Supple, Trachea Midline Respiratory: Yes: Regular, CTA Bilaterally Gastrointestinal: Yes: Normal Bowel Sounds, Soft Cardiovascular: Yes: Regular Rate and Rhythm JVD: No Carotid Bruit: No PMI: Non-Displaced Heart Sounds: Yes: S1, S2 Extremities: wwp Edema: No Neurological: Yes: Alert, Oriented Psychiatric: No: Agitated Assessment/Plan EKG: sinus tach, no ischemic changes CXR: no congestion echo 02/2019 mod dilated LV, severely reduced LV function, severe global hypokinesis of LV, RV mildly dilated, RV function mod reduced, LA mildly dilated , tr MR, tr TR, mod dilated IVC Chest pain - reportedly normal cath at [place] in 09/2017 as part of cardiomyopathy workup - trop neg x2 - tox screen neg for cocaine - echo shows reduced LV function, known chronic systolic HF - likely MSK, would defer stress test given normal cath a year ago, atypical symptoms shortness of breath, acute on chronic systolic HF 2/2 cocaine use - sob improving with IV lasix - has had poor follow up for management of CHF - he does not specify when he last saw an outpatient doctor but notes his medications are nearly out. also has had conversation about ICD in the past with CHF doctor at [place] but didn't follow up - echo shows worsening LV function - cont lasix 80 mg IV daily, monitor Cr, lytes, daily weights - cont spironolactone, metoprolol, lisinopril HLD - cont statin
[2019-03-02] MEDS: FUROSEMIDE 40 MG/4 ML INJECTABLE VIAL IVPB SCH (12:30)
[2019-03-02 13:36] LABS: PH,URINE 7.5 (5.0-8.0); URINE APPEARANCE CLEAR; URINE BILIRUBIN NEGATIVE (NEGATIVE); URINE COLOR YELLOW; URINE GLUCOSE (UA) NEGATIVE (NEGATIVE); URINE KETONE NEGATIVE (NEGATIVE); URINE LEUK ESTERASE NEGATIVE (NEGATIVE); URINE NITRITE NEGATIVE (NEGATIVE); URINE PROTEIN NEGATIVE (NEGATIVE)
--- NOTE | 2019-03-02 13:41 | PN ---
Physical Exam: SUBJECTIVE: Patient seen and examined in the morning. Reports resolution of chest pain and shortness of breath. Has no complaints of new chest pain, dyspnea , abdominal pain, diarrhea, nausea, or vomiting. Patient has new complaints of flank pain with urination, but no dysuria or hematuria. Patient also has some complaints of paresthesia in the left hand. OBJECTIVE: Vital Signs Period Temp Pulse Resp BP Sys/Tucker Pulse Ox Last 24 Hr 97.8 F-98.6 F 78-106 16-20 103-129/60-90 94-99 GENERAL: The patient is awake, alert, and fully oriented. HEAD: Normal with no signs of trauma. EYES: PERRL, extraocular movements intact, sclera anicteric, conjunctiva clear. No ptosis. ENT: Ears normal, nares patent, oropharynx clear without exudates, moist mucous membranes. NECK: Trachea midline, full range of motion, supple. LUNGS: Breath sounds equal, clear to auscultation bilaterally, no wheezes, no crackles, no accessory muscle use. HEART: Regular rate and rhythm, S1, S2 without murmur, rub or gallop. ABDOMEN: Soft, nontender, nondistended, normoactive bowel sounds, no guarding, no rebound. EXTREMITIES: 2+ pulses, warm, well-perfused, no edema. NEUROLOGICAL: Cranial nerves II through XII grossly intact. Normal speech,gait not assessed. Paresthesia elicited with tapping of his wrist. PSYCH: Normal mood, normal affect. SKIN: Warm, dry, normal turgor, no rashes or lesions noted Laboratory Results - last 24 hr 03/02/19 03/02/19 03/02/19 06:40 06:40 13:15 WBC 6.4 RBC 5.19 Hgb 16.0 Hct 47.7 MCV 92.0 MCH 30.8 MCHC 33.4 RDW 14.1 Plt Count 190 MPV 11.4 H Absolute Neuts (auto) 3.6 Neutrophils % 56.8 Lymphocytes % 32.4 Monocytes % 7.7 Eosinophils % 2.4 Basophils % 0.7 Nucleated RBC % 0 Sodium 139 Potassium 3.2 L Chloride 101 Carbon Dioxide 28 Anion Gap 10 BUN 15.4 Creatinine 0.9 Est GFR (CKD-EPI)AfAm 128.70 Est GFR (CKD-EPI)NonAf 111.04 Random Glucose 93 Calcium 8.6 Magnesium 2.0 Total Bilirubin 1.2 H AST 66 H ALT 90 H Alkaline Phosphatase 80 Total Protein 7.3 Albumin 3.7 Vitamin B12 348 Serum Folate 20 H Urine Color Yellow Urine Appearance Clear Urine pH 7.5 D Ur Specific [place] 1.009 L Urine Protein Negative Urine Glucose (UA) Negative Urine Ketones Negative Urine Blood Negative Urine Nitrite Negative Urine Bilirubin Negative Urine Urobilinogen 1.0 Ur Leukocyte Esterase Negative Active Medications Generic Name Dose Route Start Last Admin Trade Name Joann PRN Reason Stop Dose Admin Aspirin 81 mg 03/01/19 10:00 03/02/19 10:04 Asa - PO 81 mg DAILY [facility] Administration Atorvastatin Calcium 40 mg 03/01/19 22:00 03/01/19 23:47 Lipitor - PO 40 mg HS [facility] Administration Folic Acid 1 mg 03/01/19 10:00 03/02/19 10:04 Folic Acid - PO 1 mg DAILY [facility] Administration Furosemide 80 mg 03/01/19 13:30 03/02/19 12:30 Lasix Injection - IVPB 80 mg DAILY [facility] Administration Heparin Sodium (Porcine) 5,000 unit 03/01/19 06:00 03/02/19 06:28 Heparin - SQ Not Given TID [facility] Lisinopril 10 mg 03/01/19 10:00 03/02/19 10:04 Prinivil PO 10 mg DAILY [facility] Administration Metoprolol Succinate 50 mg 03/01/19 10:00 03/02/19 10:05 Toprol Xl - PO 50 mg DAILY [facility] Administration Multivitamins/Minerals 1 each 03/01/19 10:00 03/02/19 10:04 Theragran-M PO 1 each DAILY [facility] Administration Potassium Chloride 20 meq 03/03/19 10:00 K-Dur - PO 03/04/19 10:01 BID [facility] Spironolactone 25 mg 03/01/19 10:00 03/02/19 10:04 Aldactone - PO 25 mg DAILY [facility] Administration ASSESSMENT/PLAN: 33 M with PMH of rEF CHF (20%), HTN, HLD, CORNELL, cocaine induced [place] (09/26) who presented with chest pain and shortness of breath today likely secondary to exacerbation of heart failure after missing diuretic dose. 1) CHF exacerbation Echo showed: EF of 20%, Severely reduced LV function, severe global hypokinesis of LV. Continue Spironolactone 25 mg PO Daily Continue Metoprolol 50 mg PO Daily Continue Lisonipril 10 mg PO Daily Continue Lasix 80 mg IV Daily Continue ASA 81 mg PO Daily Strict I&O Daily weights Discuss with cardiology patient qualifications for life vest 2) Chest Pain Troponin levels decreased. Chest pain likely due to musculoskeletal origin. Consider ketorolac for pain management if pain persists Negative cath in 2018. 3) Transaminitis Elevated transaminase in previous admission Component may be related to congestion due to HF. 4)HLD Continue atorvastatin 40 mg PO daily 5) Hypokalemia Monitor CMP Given 40 mEq of K-Dur 6) Left sided flank pain Renal U/S shows left sided nephrolithiasis with no evidence of hydronephrosis or obstructive uropathy. Pain management as needed, and will observe. F:No fluids E:Continue monitoring Magnesium and Potassium N:Sodium restricted diet. Dispo: Admitted to Telemetry DVT: Heparin 5000 SQ Visit type - Emergency Visit Emergency Visit: Yes ED Registration Date: 03/02/19 Care time: The patient presented to the Emergency Department on the above date and was hospitalized for further evaluation of their emergent condition. - New Patient This patient is new to me today: Yes Date on this admission: 03/02/19 - Critical Care Critical Care patient: No ATTENDING PHYSICIAN STATEMENT I saw and evaluated the patient. I reviewed the resident's note and discussed the case with the resident. I agree with the resident's findings and plan as documented. SUBJECTIVE: OBJECTIVE: ASSESSMENT AND PLAN:
--- NOTE | 2019-03-02 19:33 | PN ---
Teaching Attending Note Name of Resident: Minor Henderson ATTENDING PHYSICIAN STATEMENT I saw and evaluated the patient. I reviewed the resident's note and discussed the case with the resident. I agree with the resident's findings and plan as documented. SUBJECTIVE: Patient is comfortable with no acute distress. OBJECTIVE: Vital Signs Temperature 97.2 F L 03/02/19 15:00 Pulse Rate 91 H 03/02/19 15:00 Respiratory Rate 20 03/02/19 15:00 Blood Pressure 113/71 03/02/19 15:00 O2 Sat by Pulse Oximetry (%) 94 L 03/02/19 04:00 GENERAL: The patient is awake, alert, and fully oriented, in no acute distress. HEAD: Normal with no signs of trauma. EYES: PERRL, extraocular movements intact, sclera anicteric, conjunctiva clear. ENT: Ears normal, oropharynx clear without exudates, moist mucous membranes. NECK: Trachea midline, full range of motion, supple. LUNGS: Breath sounds equal, clear to auscultation bilaterally, no wheezes, no crackles, no accessory muscle use. HEART: Regular rate and rhythm, S1, S2 without murmur, rub or gallop. ABDOMEN: Soft, nontender, nondistended, normoactive bowel sounds, no guarding, no rebound, no hepatosplenomegaly, no masses. EXTREMITIES: 2+ pulses, warm, well-perfused, no edema. NEUROLOGICAL: Cranial nerves II through XII grossly intact. Normal speech, gait not observed. PSYCH: Normal mood, normal affect. SKIN: Warm, dry, normal turgor, no rashes or lesions noted CBCD WBC 6.4 K/mm3 (4.0-10.0) 03/02/19 06:40 RBC 5.19 M/mm3 (4.00-5.60) 03/02/19 06:40 Hgb 16.0 GM/dL (11.7-16.9) 03/02/19 06:40 Hct 47.7 % (35.4-49) 03/02/19 06:40 MCV 92.0 fl (80-96) 03/02/19 06:40 MCHC 33.4 g/dl (32.0-35.9) 03/02/19 06:40 RDW 14.1 % (11.9-15.9) 03/02/19 06:40 Plt Count 190 K/MM3 (134-434) 03/02/19 06:40 MPV 11.4 fl (7.5-11.1) H 03/02/19 06:40 CMP Sodium 139 mmol/L (136-145) 03/02/19 06:40 Potassium 3.2 mmol/L (3.5-5.1) L 03/02/19 06:40 Chloride 101 mmol/L (98-107) 03/02/19 06:40 Carbon Dioxide 28 mmol/L (21-32) 03/02/19 06:40 Anion Gap 10 MMOL/L (8-16) 03/02/19 06:40 BUN 15.4 mg/dL (7-18) 03/02/19 06:40 Creatinine 0.9 mg/dL (0.55-1.3) 03/02/19 06:40 Random Glucose 93 mg/dL (74-106) 03/02/19 06:40 Calcium 8.6 mg/dL (8.5-10.1) 03/02/19 06:40 Total Bilirubin 1.2 mg/dL (0.2-1) H 03/02/19 06:40 AST 66 U/L (15-37) H 03/02/19 06:40 ALT 90 U/L (13-61) H 03/02/19 06:40 Alkaline Phosphatase 80 U/L (45-117) 03/02/19 06:40 Total Protein 7.3 g/dl (6.4-8.2) 03/02/19 06:40 Albumin 3.7 g/dl (3.4-5.0) 03/02/19 06:40 CARDIAC ENZYMES Creatine Kinase 218 U/L (26-308) 03/01/19 01:30 Troponin I 0.05 ng/ml (0.00-0.05) 03/01/19 08:45 Current Medications Generic Name Dose Route Start Last Admin Trade Name Joann PRN Reason Stop Dose Admin Aspirin 81 mg 03/01/19 10:00 03/02/19 10:04 Asa - PO 81 mg DAILY MARCIE Administration Atorvastatin Calcium 40 mg 03/01/19 22:00 03/01/19 23:47 Lipitor - PO 40 mg HS MARCIE Administration Folic Acid 1 mg 03/01/19 10:00 03/02/19 10:04 Folic Acid - PO 1 mg DAILY MARCIE Administration Furosemide 80 mg 03/01/19 13:30 03/02/19 12:30 Lasix Injection - IVPB 80 mg DAILY MARCIE Administration Heparin Sodium (Porcine) 5,000 unit 03/01/19 06:00 03/02/19 14:26 Heparin - SQ Not Given TID MARCIE Lisinopril 10 mg 03/01/19 10:00 03/02/19 10:04 Prinivil PO 10 mg DAILY MARCIE Administration Metoprolol Succinate 50 mg 03/01/19 10:00 03/02/19 10:05 Toprol Xl - PO 50 mg DAILY MARCIE Administration Multivitamins/Minerals 1 each 03/01/19 10:00 03/02/19 10:04 Theragran-M PO 1 each DAILY MARCIE Administration Potassium Chloride 20 meq 03/03/19 10:00 K-Dur - PO 03/04/19 10:01 BID MARCIE Spironolactone 25 mg 03/01/19 10:00 03/02/19 10:04 Aldactone - PO 25 mg DAILY MARCIE Administration Home Medications Medication Instructions Recorded Atorvastatin Ca [Lipitor] 40 mg PO HS 12/16/18 Folic Acid 1 mg PO DAILY 12/16/18 Metoprolol Succinate 50 mg PO DAILY 12/16/18 Multivitamin,Therapeutic [Thera] 1 each PO DAILY 12/16/18 Spironolactone 25 mg PO DAILY 12/16/18 Acetaminophen [Tylenol .Regular 650 mg PO Q6H PRN tablet 12/17/18 Strength -] Bumetanide 2 mg PO BID 12/17/18 Lisinopril 10 mg PO DAILY 12/17/18 ASSESSMENT AND PLAN: Patient is a 33 y/o man with PMHx of non ischemic cardiomyopathy , [place] due to cocaine, HTN, CORNELL, obesity, HLP, active Marijuana use, previous cocaine use, who presented with SOb /and CP. # Acute systolic heart failure. continue lasix IV. cont spironolactone , strict I&O , daily weight . cont BB and ACEI - echo with severely reduced EF, worse than previous EF on 12/27. will d/w card the need for life vest before #Acute CP: reproducible on exam. trop was slightly elevated 0.06 then 0.5. EKG with sinus rhythm, Nl axis and non specific St abnormalities. - had neg cath per notes in 09/25 when first diagnosed with CMP. # Transaminitis:most likely due to chronic hepatic congestion in addition to fatty liver and statins # hyperlipidemia: despite LDl not being at goal , will hold off increasing statins due to LFTs abn # hypokalemia continue to replete, levels in am dvt Px: heparin
[2019-03-02] MEDS ORDERED: IBUPROFEN 600 MG TABLET (FP) PO ONE (21:24)
--- NOTE | 2019-03-02 21:32 | PN ---
Progress Note (short form) - Note Progress Note: I was notified by the nurse that the patient was having chest pain. 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 Trops neg x2 so far, trop was slightly elevated 0.06 then 0.05. EKG with sinus rhythm , Nl axis and non specific St abnormalities. prior stress test in 2018 was normal. On questioning tonight, pt mentions that the pain is similar to the one he had on admission and that it is radiating to hi stomach and under left breast. PE: Pt in no apparent distress. chest: vesicular breath sounds B/L . chest pain still reproducible under left nipple but not in epigastric region Heart: normal S1 S2 no MRG Plan: repeat trops and EKG stat motrin 600 once given for the pain reeval: trop cont to trend down at 0.03 and repeat EKG no interval changes. pt refusing motrin as he says it doesnt work and request something stronger. tele bed opened, pt is being transferred now
[2019-03-02] MEDS: ATORVASTATIN CA 40 MG TABLET (FP) PO SCH (22:01)
[2019-03-03] MEDS ORDERED: IBUPROFEN 600 MG TABLET (FP) PO ONE ×2 (02:28→11:39)
[2019-03-03] MEDS: HEPARIN NA (PORCINE) 5,000 UNITS/ML 1ML VIAL SQ SCH ×4 (06:30→21:36)
[2019-03-03 07:04] LABS: BASO % 0.6 % (0-2.0); EOS % 2.2 % (0-4.5); HEMATOCRIT 47.6 % (35.4-49); HEMOGLOBIN 15.9 GM/dL (11.7-16.9); LYMPH % 31.8 % (8-40); MCH 31.1 pg (25.7-33.7); MCHC 33.4 g/dl (32.0-35.9); MEAN PLT VOLUME 11.5 fl (7.5-11.1); MONO % 6.7 % (3.8-10.2); NEUT % 58.7 % (42.8-82.8); PLATELET COUNT 175 K/MM3 (134-434); RBC 5.12 M/mm3 (4.00-5.60); RDW 14.3 % (11.9-15.9); WHITE BLOOD COUNT 7.1 K/mm3 (4.0-10.0)
[2019-03-03 08:15] LABS: ALBUMIN 3.7 g/dl (3.4-5.0); BILIRUBIN,TOTAL 1.2 mg/dL (0.2-1); BLOOD UREA NITROGEN 17.1 mg/dL (7-18); CALCIUM 9.3 mg/dL (8.5-10.1); CREATININE 0.9 mg/dL (0.55-1.3); POTASSIUM 4.1 mmol/L (3.5-5.1); TOT PROT 7.2 g/dl (6.4-8.2)
[2019-03-03] MEDS ORDERED: LISINOPRIL 10 MG TABLET (FP) PO SCH (10:00)
[2019-03-03] MEDS: ASPIRIN 81 MG CHEWABLE TABLETS PO SCH (10:04)
[2019-03-03] MEDS: MULTIVITAMINS THER W-MINERALS COMBO TABLET (FP) PO SCH (10:04)
[2019-03-03] MEDS: POTASSIUM CHLORIDE TABS 20 MEQ TABLET.ER (FP) PO SCH ×2 (10:04→21:36)
[2019-03-03] MEDS: SPIRONOLACTONE 25 MG TABLET (FP) PO SCH (10:04)
[2019-03-03] MEDS: FOLIC ACID 1 MG TABLET (FP) PO SCH (10:04)
[2019-03-03] MEDS: FUROSEMIDE 40 MG/4 ML INJECTABLE VIAL IVPB SCH (11:16)
--- NOTE | 2019-03-03 12:17 | PN ---
Progress Note (short form) - Note Progress Note: s: sob improving, no palps, dizziness; had msk type cp overnight, asking for strong pain meds this AM Current Medications Generic Name Dose Route Start Last Admin Trade Name Joann PRN Reason Stop Dose Admin Aspirin 81 mg 03/03/19 10:00 03/03/19 10:04 Asa - PO 81 mg DAILY MARCIE Administration Atorvastatin Calcium 40 mg 03/03/19 22:00 Lipitor - PO HS MARCIE Folic Acid 1 mg 03/03/19 10:00 03/03/19 10:04 Folic Acid - PO 1 mg DAILY MARCIE Administration Furosemide 80 mg 03/03/19 10:00 03/03/19 11:16 Lasix Injection - IVPB 80 mg DAILY MARCIE Administration Heparin Sodium (Porcine) 5,000 unit 03/03/19 14:00 Heparin - SQ TID MARCIE Lisinopril 10 mg 03/04/19 10:00 Prinivil PO DAILY MARCIE Metoprolol Succinate 50 mg 03/03/19 10:00 03/03/19 10:04 Toprol Xl - PO 50 mg DAILY MARCIE Administration Multivitamins/Minerals 1 each 03/03/19 10:00 03/03/19 10:04 Theragran-M PO 1 each DAILY MARCIE Administration Potassium Chloride 20 meq 03/03/19 10:00 03/03/19 10:04 K-Dur - PO 03/04/19 10:01 20 meq BID MARCIE Administration Spironolactone 25 mg 03/03/19 10:00 03/03/19 10:04 Aldactone - PO 25 mg DAILY MARCIE Administration Vital Signs Period Temp Pulse Resp BP Sys/Tucker Pulse Ox Last 24 Hr 97.2 F-98.5 F 82-98 20-20 92-114/38-71 94 Constitutional: Yes: Well Nourished, No Distress, Calm Eyes: Yes: Conjunctiva Clear Neck: Yes: Supple, Trachea Midline Respiratory: Yes: Regular, CTA Bilaterally Gastrointestinal: Yes: Normal Bowel Sounds, Soft Cardiovascular: Yes: Regular Rate and Rhythm JVD: No Carotid Bruit: No PMI: Non-Displaced Heart Sounds: Yes: S1, S2 Edema: No Neurological: Yes: Alert, Oriented Psychiatric: No: Agitated CBC, BMP 03/03/19 05:20 03/03/19 05:20 Assessment/Plan EKG: sinus tach, no ischemic changes CXR: no congestion echo 02/2019 mod dilated LV, severely reduced LV function, severe global hypokinesis of LV, RV mildly dilated, RV function mod reduced, LA mildly dilated , tr MR, tr TR, mod dilated IVC tele: sr Chest pain - reportedly normal cath at [facility] in 09/2017 as part of cardiomyopathy workup - trop neg x2 - tox screen neg for cocaine - echo shows reduced LV function, known chronic systolic HF - likely MSK, would defer stress test given normal cath a year ago, atypical symptoms shortness of breath, acute on chronic systolic HF 2/2 cocaine use - sob improving with IV lasix - has had poor follow up for management of CHF - he does not specify when he last saw an outpatient doctor but notes his medications are nearly out. also has had conversation about ICD in the past with CHF doctor at [facility] but didn't follow up - echo shows worsening LV function - cont lasix 80 mg IV daily, monitor Cr, lytes, daily weights - cont spironolactone, metoprolol, lisinopril HLD - cont statin
--- NOTE | 2019-03-03 14:52 | PN ---
Physical Exam: SUBJECTIVE: Patient seen and examined in the morning. Complained of recurrent chest pain, rating at 4/10, and a headache overnight. No other acute events occurred, telemetry monitoring showed isolated occasional PVCs. He did not complain of shortness of breath, arm pain, abdominal pain, or changes in vision. OBJECTIVE: Vital Signs Period Temp Pulse Resp BP Sys/Tucker Pulse Ox Last 24 Hr 97.2 F-98.5 F 82-98 20-20 92-114/38-71 94 GENERAL: The patient is awake, alert, and fully oriented. HEAD: Normal with no signs of trauma. EYES: PERRL, extraocular movements intact, sclera anicteric, conjunctiva clear. No ptosis. ENT: Ears normal, nares patent, oropharynx clear without exudates, moist mucous membranes. NECK: Trachea midline, full range of motion, supple. LUNGS: Breath sounds equal, clear to auscultation bilaterally, no wheezes, no crackles, no accessory muscle use. HEART: Regular rate and rhythm, S1, S2 without murmur, rub or gallop. ABDOMEN: Soft, nontender, nondistended, normoactive bowel sounds, no guarding, no rebound. EXTREMITIES: 2+ pulses, warm, well-perfused, no edema. NEUROLOGICAL: Cranial nerves II through XII grossly intact. Normal speech,gait not assessed. . PSYCH: Normal mood, normal affect. SKIN: Warm, dry, normal turgor, no rashes or lesions noted Laboratory Results - last 24 hr CBC, BMP 03/03/19 05:20 03/03/19 05:20 Active Medications Generic Name Dose Route Start Last Admin Trade Name Joann PRN Reason Stop Dose Admin Aspirin 81 mg 03/03/19 10:00 03/03/19 10:04 Asa - PO 81 mg DAILY MARCIE Administration Atorvastatin Calcium 40 mg 03/03/19 22:00 Lipitor - PO HS MARCIE Folic Acid 1 mg 03/03/19 10:00 03/03/19 10:04 Folic Acid - PO 1 mg DAILY MARCIE Administration Furosemide 80 mg 03/03/19 10:03/03/19 11:16 Lasix Injection - IVPB 80 mg DAILY MARCIE Administration Heparin Sodium (Porcine) 5,000 unit 03/03/19 14:00 03/03/19 14:48 Heparin - SQ 5,000 unit TID MARCIE Administration Lisinopril 10 mg 10/25/19 10:00 Prinivil PO DAILY MARCIE Metoprolol Succinate 50 mg 03/03/19 10:00 03/03/19 10:04 Toprol Xl - PO 50 mg DAILY MARCIE Administration Multivitamins/Minerals 1 each 03/03/19 10:00 03/03/19 10:04 Theragran-M PO 1 each DAILY MARCIE Administration Potassium Chloride 20 meq 03/03/19 10:00 03/03/19 10:04 K-Dur - PO 03/04/19 10:01 20 meq BID MARCIE Administration Spironolactone 25 mg 03/03/19 10:00 03/03/19 10:04 Aldactone - PO 25 mg DAILY MARCIE Administration ASSESSMENT/PLAN: 33 M with PMH of rEF CHF (20%), HTN, HLD, CORNELL, 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 1) CHF exacerbation Echo showed: EF of 20%, Severely reduced LV function, severe global hypokinesis of LV. Continue Spironolactone 25 mg PO Daily Continue Metoprolol 50 mg PO Daily Continue Lisonipril 10 mg PO Daily Continue Lasix 80 mg IV Daily Continue ASA 81 mg PO Daily Strict I&O Daily weights Appreciate Cardiology rec's Avoid motrin for pain management 2) Chest Pain Troponin levels decreased. Chest pain likely due to musculoskeletal origin. Negative cath in 2018. 3) Transaminitis Elevated transaminase in previous admission Component may be related to congestion due to HF. 4)HLD Continue atorvastatin 40 mg PO daily 5) Hypokalemia Monitor CMP Resolved, 4.1 6) Left sided flank pain Renal U/S shows left sided nephrolithiasis with no evidence of hydronephrosis or obstructive uropathy. Pain management as needed, and will observe. F:No fluids E:Continue monitoring Magnesium and Potassium N:Sodium restricted diet. Dispo: Admitted to Telemetry DVT: Heparin 5000 SQ Visit type - Emergency Visit Emergency Visit: Yes ED Registration Date: 03/02/19 Care time: The patient presented to the Emergency Department on the above date and was hospitalized for further evaluation of their emergent condition. - New Patient This patient is new to me today: No - Critical Care Critical Care patient: No ATTENDING PHYSICIAN STATEMENT I saw and evaluated the patient. I reviewed the resident's note and discussed the case with the resident. I agree with the resident's findings and plan as documented. SUBJECTIVE: OBJECTIVE: ASSESSMENT AND PLAN:
--- NOTE | 2019-03-03 15:53 | PN ---
Teaching Attending Note Name of Resident: Minor Henderson ATTENDING PHYSICIAN STATEMENT I saw and evaluated the patient. I reviewed the resident's note and discussed the case with the resident. I agree with the resident's findings and plan as documented. SUBJECTIVE: Patient has no new complains. No fever or chills, will continue to monitor the patient. No chest pain or palpitations. OBJECTIVE: Vital Signs Temperature 98.3 F 03/03/19 05:00 Pulse Rate 82 03/03/19 06:30 Respiratory Rate 20 03/03/19 10:00 Blood Pressure 101/43 L 03/03/19 06:30 O2 Sat by Pulse Oximetry (%) 94 L 03/03/19 10:00 GENERAL: The patient is awake, alert, and fully oriented, in no acute distress. HEAD: Normal with no signs of trauma. EYES: PERRL, extraocular movements intact, sclera anicteric, conjunctiva clear. ENT: Ears normal, oropharynx clear without exudates, moist mucous membranes. NECK: Trachea midline, full range of motion, supple. LUNGS: Breath sounds equal, clear to auscultation bilaterally, no wheezes, no crackles, no accessory muscle use. HEART: Regular rate and rhythm, S1, S2 without murmur, rub or gallop. ABDOMEN: Soft, nontender, nondistended, normoactive bowel sounds, no guarding, no rebound, no hepatosplenomegaly, no masses. EXTREMITIES: 2+ pulses, warm, well-perfused, no edema. NEUROLOGICAL: Cranial nerves II through XII grossly intact. Normal speech, gait not observed. PSYCH: Normal mood, normal affect. SKIN: Warm, dry, normal turgor, no rashes or lesions noted CBCD WBC 7.1 K/mm3 (4.0-10.0) 03/03/19 05:20 RBC 5.12 M/mm3 (4.00-5.60) 03/03/19 05:20 Hgb 15.9 GM/dL (11.7-16.9) 03/03/19 05:20 Hct 47.6 % (35.4-49) 03/03/19 05:20 MCV 93.0 fl (80-96) 03/03/19 05:20 MCHC 33.4 g/dl (32.0-35.9) 03/03/19 05:20 RDW 14.3 % (11.9-15.9) 03/03/19 05:20 Plt Count 175 K/MM3 (134-434) 03/03/19 05:20 MPV 11.5 fl (7.5-11.1) H 03/03/19 05:20 CMP Sodium 140 mmol/L (136-145) 03/03/19 05:20 Potassium 4.1 mmol/L (3.5-5.1) 03/03/19 05:20 Chloride 103 mmol/L (98-107) 03/03/19 05:20 Carbon Dioxide 26 mmol/L (21-32) 03/03/19 05:20 Anion Gap 11 MMOL/L (8-16) 03/03/19 05:20 BUN 17.1 mg/dL (7-18) 03/03/19 05:20 Creatinine 0.9 mg/dL (0.55-1.3) 03/03/19 05:20 Random Glucose 95 mg/dL (74-106) 03/03/19 05:20 Calcium 9.3 mg/dL (8.5-10.1) 03/03/19 05:20 Total Bilirubin 1.2 mg/dL (0.2-1) H 03/03/19 05:20 AST 75 U/L (15-37) H 03/03/19 05:20 ALT 94 U/L (13-61) H 03/03/19 05:20 Alkaline Phosphatase 83 U/L (45-117) 03/03/19 05:20 Total Protein 7.2 g/dl (6.4-8.2) 03/03/19 05:20 Albumin 3.7 g/dl (3.4-5.0) 03/03/19 05:20 CARDIAC ENZYMES Creatine Kinase 218 U/L (26-308) 03/01/19 01:30 Troponin I 0.03 ng/ml (0.00-0.05) 03/02/19 22:38 Current Medications Generic Name Dose Route Start Last Admin Trade Name Freq PRN Reason Stop Dose Admin Aspirin 81 mg 03/03/19 10:00 03/03/19 10:04 Asa - PO 81 mg DAILY MARCIE Administration Atorvastatin Calcium 40 mg 03/03/19 22:00 Lipitor - PO HS MARCIE Folic Acid 1 mg 03/03/19 10:00 03/03/19 10:04 Folic Acid - PO 1 mg DAILY MARCIE Administration Furosemide 80 mg 03/03/19 10:00 03/03/19 11:16 Lasix Injection - IVPB 80 mg DAILY MARCIE Administration Heparin Sodium (Porcine) 5,000 unit 03/03/19 14:00 Heparin - SQ TID MARCIE Lisinopril 10 mg 03/04/19 10:00 Prinivil PO DAILY MARCIE Metoprolol Succinate 50 mg 03/03/19 10:00 03/03/19 10:04 Toprol Xl - PO 50 mg DAILY MARCIE Administration Multivitamins/Minerals 1 each 03/03/19 10:00 03/03/19 10:04 Theragran-M PO 1 each DAILY MARCIE Administration Potassium Chloride 20 meq 03/03/19 10:00 03/03/19 10:04 K-Dur - PO 03/04/19 10:01 20 meq BID MARCIE Administration Spironolactone 25 mg 03/03/19 10:00 03/03/19 10:04 Aldactone - PO 25 mg DAILY MARCIE Administration Home Medications Medication Instructions Recorded Atorvastatin Ca [Lipitor] 40 mg PO HS 12/16/18 Folic Acid 1 mg PO DAILY 12/16/18 Metoprolol Succinate 50 mg PO DAILY 12/16/18 Multivitamin,Therapeutic [Thera] 1 each PO DAILY 12/16/18 Spironolactone 25 mg PO DAILY 12/16/18 Acetaminophen [Tylenol .Regular 650 mg PO Q6H PRN tablet 12/17/18 Strength -] Bumetanide 2 mg PO BID 12/17/18 Lisinopril 10 mg PO DAILY 12/17/18 EKG: sinus tach, no ischemic changes CXR: no congestion echo 02/2019 mod dilated LV, severely reduced LV function, severe global hypokinesis of LV, RV mildly dilated, RV function mod reduced, LA mildly dilated , tr MR, tr TR, mod dilated IVC ASSESSMENT AND PLAN: Patient is a 33 y/o man with PMHx of non ischemic cardiomyopathy , [place] due to cocaine, HTN, CORNELL, obesity, HLP, active Marijuana use, previous cocaine use, who presented with SOb /and CP. # Acute systolic heart failure. continue lasix IV. cont spironolactone , strict I&O , daily weight . cont BB and ACEI - echo with severely reduced EF with 20% worse FROM previous EF on 12/27. will d/w card the need for life vest #Acute CP: IMPROVED . reproducible on exam. trop was slightly elevated 0.06 then 0.5. had neg cath per notes in 09/25 when first diagnosed with CMP. # Transaminitis:most likely due to chronic hepatic congestion in addition to fatty liver and statins # hyperlipidemia: despite LDl not being at goal , will hold off increasing statins due to LFTs abn # hypokalemia continue to replete, levels in am dvt Px: heparin
[2019-03-03] MEDS ORDERED: MELATONIN 5 MG TABLETS PO ONE (21:52)
[2019-03-03] MEDS ORDERED: ATORVASTATIN CA 40 MG TABLET (FP) PO SCH (22:00)
[2019-03-04] MEDS: HEPARIN NA (PORCINE) 5,000 UNITS/ML 1ML VIAL SQ SCH ×2 (05:35→14:32)
[2019-03-04 06:48] LABS: BASO % 0.7 % (0-2.0); EOS % 1.7 % (0-4.5); HEMATOCRIT 48.1 % (35.4-49); HEMOGLOBIN 15.9 GM/dL (11.7-16.9); LYMPH % 29.2 % (8-40); MCH 30.7 pg (25.7-33.7); MCHC 33.1 g/dl (32.0-35.9); MEAN CELL VOLUME 92.7 fl (80-96); MONO % 7.5 % (3.8-10.2); NEUT % 60.9 % (42.8-82.8); PLATELET COUNT 173 K/MM3 (134-434); RBC 5.19 M/mm3 (4.00-5.60); RDW 14.2 % (11.9-15.9); WHITE BLOOD COUNT 7.7 K/mm3 (4.0-10.0)
[2019-03-04 08:18] LABS: ALBUMIN 3.8 g/dl (3.4-5.0); BILIRUBIN,TOTAL 1.2 mg/dL (0.2-1); BLOOD UREA NITROGEN 17.1 mg/dL (7-18); CALCIUM 9.5 mg/dL (8.5-10.1); CREATININE 0.8 mg/dL (0.55-1.3); POTASSIUM 4.2 mmol/L (3.5-5.1); TOT PROT 7.5 g/dl (6.4-8.2)
[2019-03-04] MEDS ORDERED: LISINOPRIL 10 MG TABLET (FP) PO SCH (10:00)
--- NOTE | 2019-03-04 10:03 | PN ---
Progress Note, Physician Chief Complaint: feeling better No further CP No SOB TELE: NSR, rare VPCs. - Current Medication List Current Medications: Active Medications Aspirin (Asa -) 81 mg PO DAILY [facility] Last Admin: 03/03/19 10:04 Dose: 81 mg Atorvastatin Calcium (Lipitor -) 40 mg PO HS [facility] Last Admin: 03/03/19 21:36 Dose: 40 mg Folic Acid (Folic Acid -) 1 mg PO DAILY [facility] Last Admin: 03/03/19 10:04 Dose: 1 mg Furosemide (Lasix Injection -) 80 mg IVPB DAILY [facility] Last Admin: 03/03/19 11:16 Dose: 80 mg Heparin Sodium (Porcine) (Heparin -) 5,000 unit SQ TID [facility] Last Admin: 03/04/19 05:35 Dose: Not Given Lisinopril (Prinivil) 10 mg PO DAILY [facility] Metoprolol Succinate (Toprol Xl -) 50 mg PO DAILY [facility] Last Admin: 03/03/19 10:04 Dose: 50 mg Multivitamins/Minerals (Theragran-M) 1 each PO DAILY [facility] Last Admin: 03/03/19 10:04 Dose: 1 each Spironolactone (Aldactone -) 25 mg PO DAILY [facility] Last Admin: 03/03/19 10:04 Dose: 25 mg - Objective Vital Signs: Vital Signs Temperature 97.9 F 03/04/19 05:34 Pulse Rate 84 03/04/19 05:34 Respiratory Rate 20 03/04/19 05:34 Blood Pressure 105/78 03/04/19 05:34 O2 Sat by Pulse Oximetry (%) 97 03/03/19 20:50 Constitutional: Yes: No Distress Cardiovascular: Yes: Regular Rate and Rhythm Respiratory: Yes: CTA Bilaterally Gastrointestinal: Yes: Soft Edema: No Neurological: Yes: Alert, Oriented ...Motor Strength: WNL Labs: CBC, BMP 03/04/19 05:18 03/04/19 05:18 INR, PTT INR 1.06 (0.83-1.09) 03/01/19 01:30 - ....Imaging EKG: Image Reviewed Assessment/Plan Assessment/Plan EKG: sinus tach, no ischemic changes CXR: no congestion echo 02/2019 mod dilated LV, severely reduced LV function, severe global hypokinesis of LV, RV mildly dilated, RV function mod reduced, LA mildly dilated , tr MR, tr TR, mod dilated IVC tele: sr Chest pain: - reportedly normal cath at [facility] in 09/2017 as part of cardiomyopathy workup - trop neg x2 - tox screen neg for cocaine - echo shows severely reduced LV function, known chronic systolic HF - likely MSK, would defer stress test given normal cath a year ago, atypical symptoms shortness of breath, acute on chronic systolic HF 2/2 cocaine use: - sob improved with IV lasix, can switch to Lasix 40mg PO BID - has had poor follow up for management of CHF - he does not specify when he last saw an outpatient doctor but notes his medications are nearly out. also has had conversation about ICD in the past with CHF doctor at [facility] but didn't follow up - will plan for [employer] as bridge to ICD - echo shows worsening LV function - cont spironolactone, metoprolol, lisinopril HLD - cont statin
[2019-03-04] MEDS: SPIRONOLACTONE 25 MG TABLET (FP) PO SCH (10:15)
[2019-03-04] MEDS: POTASSIUM CHLORIDE TABS 20 MEQ TABLET.ER (FP) PO SCH (10:15)
[2019-03-04] MEDS: FUROSEMIDE 40 MG/4 ML INJECTABLE VIAL IVPB SCH (10:16)
[2019-03-04] MEDS: ASPIRIN 81 MG CHEWABLE TABLETS PO SCH (10:16)
[2019-03-04] MEDS: MULTIVITAMINS THER W-MINERALS COMBO TABLET (FP) PO SCH (10:16)
[2019-03-04] MEDS: FOLIC ACID 1 MG TABLET (FP) PO SCH (10:16)
[2019-03-04] MEDS ORDERED: traMADol HCL 50 MG TABLET PO ONE (11:34)
[2019-03-04 15:44] VITALS: BP 105/69; PULSE 86; TEMP 98.4
--- NOTE | 2019-03-04 16:17 | PN ---
Teaching Attending Note Name of Resident: Minor Henderson ATTENDING PHYSICIAN STATEMENT I saw and evaluated the patient. I reviewed the resident's note and discussed the case with the resident. I agree with the resident's findings and plan as documented. SUBJECTIVE: Patient is feeling better with no acute distress. denies any chest pain or palpitations. OBJECTIVE: Vital Signs Temperature 98.4 F 03/04/19 14:45 Pulse Rate 86 03/04/19 14:45 Respiratory Rate 20 03/04/19 14:45 Blood Pressure 105/69 03/04/19 14:45 O2 Sat by Pulse Oximetry (%) 97 03/04/19 10:00 GENERAL: The patient is awake, alert, and fully oriented, in no acute distress. HEAD: Normal with no signs of trauma. EYES: PERRL, extraocular movements intact, sclera anicteric, conjunctiva clear. ENT: Ears normal, oropharynx clear without exudates, moist mucous membranes. NECK: Trachea midline, full range of motion, supple. LUNGS: Breath sounds equal, clear to auscultation bilaterally, no wheezes, no crackles, no accessory muscle use. HEART: Regular rate and rhythm, S1, S2 without murmur, rub or gallop. ABDOMEN: Soft, nontender, nondistended, normoactive bowel sounds, no guarding, no rebound, no hepatosplenomegaly, no masses. EXTREMITIES: 2+ pulses, warm, well-perfused, no edema. NEUROLOGICAL: Cranial nerves II through XII grossly intact. Normal speech, gait not observed. PSYCH: Normal mood, normal affect. SKIN: Warm, dry, normal turgor, no rashes or lesions noted CBCD WBC 7.7 K/mm3 (4.0-10.0) 03/04/19 05:18 RBC 5.19 M/mm3 (4.00-5.60) 03/04/19 05:18 Hgb 15.9 GM/dL (11.7-16.9) 03/04/19 05:18 Hct 48.1 % (35.4-49) 03/04/19 05:18 MCV 92.7 fl (80-96) 03/04/19 05:18 MCHC 33.1 g/dl (32.0-35.9) 03/04/19 05:18 RDW 14.2 % (11.9-15.9) 03/04/19 05:18 Plt Count 173 K/MM3 (134-434) 03/04/19 05:18 MPV 12.0 fl (7.5-11.1) H 03/04/19 05:18 CMP Sodium 137 mmol/L (136-145) 03/04/19 05:18 Potassium 4.2 mmol/L (3.5-5.1) 03/04/19 05:18 Chloride 103 mmol/L (98-107) 03/04/19 05:18 Carbon Dioxide 26 mmol/L (21-32) 03/04/19 05:18 Anion Gap 8 MMOL/L (8-16) 03/04/19 05:18 BUN 17.1 mg/dL (7-18) 03/04/19 05:18 Creatinine 0.8 mg/dL (0.55-1.3) 03/04/19 05:18 Random Glucose 94 mg/dL (74-106) 03/04/19 05:18 Calcium 9.5 mg/dL (8.5-10.1) 03/04/19 05:18 Total Bilirubin 1.2 mg/dL (0.2-1) H 03/04/19 05:18 AST 93 U/L (15-37) H 03/04/19 05:18 ALT 111 U/L (13-61) H 03/04/19 05:18 Alkaline Phosphatase 77 U/L (45-117) 03/04/19 05:18 Total Protein 7.5 g/dl (6.4-8.2) 03/04/19 05:18 Albumin 3.8 g/dl (3.4-5.0) 03/04/19 05:18 CARDIAC ENZYMES Creatine Kinase 218 U/L (26-308) 03/01/19 01:30 Troponin I 0.03 ng/ml (0.00-0.05) 03/02/19 22:38 Current Medications Generic Name Dose Route Start Last Admin Trade Name Freq PRN Reason Stop Dose Admin Aspirin 81 mg 03/03/19 10:00 03/04/19 10:16 Asa - PO 81 mg DAILY MARCIE Administration Atorvastatin Calcium 40 mg 03/03/19 22:00 03/03/19 21:36 Lipitor - PO 40 mg HS MARCIE Administration Folic Acid 1 mg 03/03/19 10:00 03/04/19 10:16 Folic Acid - PO 1 mg DAILY MARCIE Administration Furosemide 80 mg 03/03/19 10:00 03/04/19 10:16 Lasix Injection - IVPB 80 mg DAILY MARCIE Administration Heparin Sodium (Porcine) 5,000 unit 03/03/19 14:00 03/04/19 14:32 Heparin - SQ Not Given TID MARCIE Lisinopril 10 mg 03/04/19 10:00 03/04/19 10:15 Prinivil PO 10 mg DAILY MARCIE Administration Metoprolol Succinate 50 mg 03/03/19 10:00 03/04/19 10:15 Toprol Xl - PO 50 mg DAILY MARCIE Administration Multivitamins/Minerals 1 each 03/03/19 10:00 03/04/19 10:16 Theragran-M PO 1 each DAILY MARCIE Administration Spironolactone 25 mg 03/03/19 10:00 03/04/19 10:15 Aldactone - PO 25 mg DAILY MARCIE Administration Home Medications Medication Instructions Recorded Atorvastatin Ca [Lipitor] 40 mg PO HS 12/16/18 Folic Acid 1 mg PO DAILY 12/16/18 Metoprolol Succinate 50 mg PO DAILY 12/16/18 Multivitamin,Therapeutic [Thera] 1 each PO DAILY 12/16/18 Spironolactone 25 mg PO DAILY 12/16/18 Lisinopril 10 mg PO DAILY 12/17/18 Aspirin [Ecotrin] 81 mg PO DAILY #30 tablet. 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 # Acute systolic heart failure. will discharge the patient home on oral lasix 40mg pom bid, s/p lasix IV. cont spironolactone , cont BB and ACEI - echo with severely reduced EF, worse than previous EF on 12/27. EJF 20% , discussed with mall manager who ordered Life vest. patient needs to follow up with him in A MONTH PERIOD for further care and tratment. reportedly normal cath at [facility] in 09/2017 as part of cardiomyopathy workup # Acute SOB: resolved post IV Lasix and now on PO las #Acute CP resolved: reproducible on exam. trop was slightly elevated 0.06 then 0.5. EKG with sinus rhythm, Nl axis and non specific St abnormalities. - had neg cath per notes in 09/25 when first diagnosed with CMP. # Transaminitis:most likely due to chronic hepatic congestion in addition to fatty liver and statins , will continue with oral lasix # hyperlipidemia: despite LDl not being at goal , will hold off increasing statins due to LFTs abn # hypokalemia resolved , continue spironolactone discharge patient home on life vest , was called by the case management director.
--- NOTE | 2019-03-04 20:00 | DS ---
Physical Exam: SUBJECTIVE: Patient seen and examined in the morning. No acute events overnight with telemetry monitoring. No complaints of headache, chest pain, shortness of breath, or fever or chills. OBJECTIVE: Vital Signs Period Temp Pulse Resp BP Sys/Tucker Pulse Ox Last 24 Hr 97.7 F-98.4 F 83-98 20-20 101-126/50-78 97-97 PHYSICAL EXAM GENERAL: The patient is awake, alert, and fully oriented, in no acute distress. HEAD: Normal with no signs of trauma. NECK: Trachea midline, full range of motion, supple. LUNGS: Breath sounds equal, clear to auscultation bilaterally, no wheezes, no crackles, no accessory muscle use. HEART: Regular rate and rhythm, S1, S2 without murmur, rub or gallop. ABDOMEN: Soft, nontender, nondistended, normoactive bowel sounds, no guarding, no rebound. EXTREMITIES: 2+ pulses, warm, well-perfused, no edema. NEUROLOGICAL: Cranial nerves II through XII grossly intact. Normal speech, gait not observed. SKIN: Warm, dry, no rashes or lesions noted. LABS Laboratory Results - last 24 hr CBC, BMP 03/04/19 05:18 03/04/19 05:18 HOSPITAL COURSE: Date of Admission:03/02/19 Date of Discharge: 03/04/19 33 M with PMH of CHF (EF of 30-35%), HTN, HLD, CORNELL, cocaine induced [place] who presents with chest pain after missing medication dose. Upon admission to the hospital chest x-ray was completed which did not show any new abnormalities. Initial troponin was elevated at 0.06 but downtrended. Echocardiogram was done on first hospital day which showed a decreased EF of 20%. Cardiology was consulted. Patient's home medications were restarted with Bumetanide 2mg being changed to IV lasix 80 MG daily. Patient's chest pain was ruled to be musculoskeletal in nature. Patient's shortness of breath resolved on final day of hospital admission. Was discharged with life-vest, with follow up with cardiology for ICD placement, and Lasix 80 mg PO BID in replacement of Bumetanide. Patient also complained of left sided flank pain, imaging showed evidence of left sided nephrolithiasis, which will be followed as outpatient. Imaging: Echo: LV moderately dilated, LV systolic function severely reduced, global hypokinesis of LV, RV mildly dilated, LA mildly dilated, trace MR, trace TR, moderately dilated IVC. EF= 20% Chest X-Ray: Cardiomegaly, no evidence of active pulmonary disease Renal U/S: left nephrolithiasis with no evidence of hydronephrosis or obstructive uropathy. Minutes to complete discharge: 35 Discharge Summary Problems reviewed: Yes Reason For Visit: CHEST PAIN,ELEVATED TROPONIN LEVEL Condition: Stable - Instructions Diet, Activity, Other Instructions: You were admitted to the hospital because of an exacerbation of your CHF. While you were here we evaluated your heart with an echocardiogram. It showed that your heart is decreasing in function as compared to earlier in the year. We treated you with your home medications, and lasix. Because your heart decreased in function , you are getting a Life Vest and possible ICD . He needs to follow up with the Super[employer] within a month period for follow up on your Life vest and whether you need to continue wearing or not. We also evaluated your kidneys by Ultra sound and you have a stone present. This should pass on its own, follow up with your PCP if you have continued pain in your side or develop fevers. will recommend you a urologist if needed. To continue treatment of your CHF, we are prescribing you a new medication: Lasix 40 mg twice a day We are stopping your medication of Bumetanide. Please throw it out when you get home. Continue all your other home medications as prescribed. Follow up with your electric golf cart repairer within 1 week or with our cardiologists. It is important that you do not miss this follow up. Make an appointment with a primary care physician within one week. Return to the emergency department if you have chest pain, shortness of breath, nausea and vomiting, or worsening of your symptoms. Referrals: [facility] [place] [facility] [place] [Provider Group] - 1 Week Ralph Sow MD [Staff Physician] - 1 Week Disposition: HOME - Home Medications Comprehensive Discharge Medication List: Ambulatory Orders Multivitamin,Therapeutic [Thera] 1 each PO DAILY 12/16/18 Aspirin [Ecotrin] 81 mg PO DAILY #30 tablet. 03/04/19 Atorvastatin Ca [Lipitor] 40 mg PO HS #30 tablet 03/04/19 Folic Acid 1 mg PO DAILY #30 tablet 03/04/19 Furosemide [Lasix -] 40 mg PO BID #60 tablet 03/04/19 Lisinopril 10 mg PO DAILY #30 tablet 03/04/19 Metoprolol Succinate 50 mg PO DAILY #30 tab.er.24h 03/04/19 Spironolactone 25 mg PO DAILY #30 tablet 03/04/19 This patient is new to me today: No Emergency Visit: Yes ED Registration Date: 03/02/19 Care time: The patient presented to the Emergency Department on the above date and was hospitalized for further evaluation of their emergent condition. Critical Care patient: No - Discharge Referral Referred to [facility] No ATTENDING PHYSICIAN STATEMENT I saw and evaluated the patient. I reviewed the resident's note and discussed the case with the resident. I agree with the resident's findings and plan as documented. SUBJECTIVE: OBJECTIVE: ASSESSMENT AND PLAN:
== END 2019-03-04 18:45 | disposition home or self-care (01) | DRG 194 ==
LOC: JER 23:42 → INTOOBSV 03-01 02:52 → JERBED 03-01 02:52 → J8W 03-02 01:44 → OBSVTOIN 03-02 13:23 → J4W 03-03 01:21
PROVIDERS: ADMIT Internal Medicine; ATTEND Internal Medicine
DX: I11.0 Hypertensive heart disease with heart failure (principal); I50.21 Acute systolic (congestive) heart failure; E78.5 Hyperlipidemia, unspecified; I25.2 Old myocardial infarction; E66.8 Other obesity; Z68.38 Body mass index [BMI] 38.0-38.9, adult; R00.0 Tachycardia, unspecified; R21 Rash and other nonspecific skin eruption; E87.6 Hypokalemia; F12.10 Cannabis abuse, uncomplicated; F14.90 Cocaine use, unspecified, uncomplicated; N20.0 Calculus of kidney; R07.89 Other chest pain; K76.0 Fatty (change of) liver, not elsewhere classified; I42.8 Other cardiomyopathies; G47.33 Obstructive sleep apnea (adult) (pediatric); F17.210 Nicotine dependence, cigarettes, uncomplicated; R74.0 Nonspecific elevation of levels of transaminase and lactic acid dehydrogenase [LDH]
CPT/HCPCS: 36415; 71045-TC-FY; 76775-TC; 80053; 80061; 80307; 81003; 82550; 82553; 82607; 82746; 83036; 83721; 83735; 83880; 84100; 84443; 84484; 85025; 85610; 93005; 93010; 93306-TC; 99285-25; G0378; J1644

== ENCOUNTER 2022-08-15 08:50 | Inpatient (IN) | payer BC, OTHER ==
[2022-08-15 09:10] VITALS: BMI 34.5
[2022-08-15] MEDS ORDERED: BENZONATATE 200 MG CAPSULE PO PRN (09:38)
[2022-08-15] MEDS ORDERED: ACETAMINOPHEN 325 MG TABLET (FP) PO PRN (09:38)
[2022-08-15] MEDS ORDERED: POLYETHYLENE GLYCOL (HEALTHYLAX) 3350 17 GM PACKET PO PRN (09:38)
[2022-08-15] MEDS ORDERED: ONDANSETRON *ODT* 4 MG TABLET SL PRN (09:38)
[2022-08-15] MEDS ORDERED: IBUPROFEN 600 MG TABLET (FP) PO PRN (09:38)
[2022-08-15] MEDS ORDERED: guaiFENesin 600 MG TABLET.ER (FP) PO PRN (09:38)
[2022-08-15] MEDS ORDERED: BENZOCAINE/MENTHOL (CHLORASEPTIC ) LOZENGE MM PRN (09:38)
[2022-08-15] MEDS ORDERED: DICYCLOMINE HCL 10 MG CAPSULE PO PRN (09:38)
[2022-08-15] MEDS ORDERED: IBUPROFEN 400 MG TABLET (FP) PO PRN (09:38)
[2022-08-15] MEDS ORDERED: P-EPHED 60MG/TRIPROLIDI 2.5MG TABLET PO PRN (09:38)
[2022-08-15] MEDS ORDERED: MELATONIN 5 MG TABLETS PO PRN (09:38)
[2022-08-15] MEDS ORDERED: MAG HYDROX/AL HYDROX/SIMETH 30 ML UNIT-DOSE CUP PO PRN (09:38)
[2022-08-15] MEDS ORDERED: LOPERAMIDE HCL 2 MG CAPSULE PO PRN (09:38)
[2022-08-15] MEDS ORDERED: BISMUTH SUBSALICYLATE 262 MG/15 ML BTL PO PRN (09:38)
[2022-08-15] MEDS ORDERED: diazePAM 5 MG TABLET PO PRN (09:42)
[2022-08-15] MEDS ORDERED: diazePAM 5 MG TABLET ONE (11:11)
[2022-08-15] MEDS ORDERED: PRENATAL VITAMINS W/ FOLIC ACID TABLET (FP) PO ONE (11:12)
[2022-08-15] MEDS: PRENATAL VITAMINS W/ FOLIC ACID TABLET (FP) PO SCH (11:14)
[2022-08-15] MEDS: diazePAM 5 MG TABLET PO SCH ×3 (11:14→23:03)
[2022-08-15] MEDS: THIAMINE HCL 100 MG TABLET (FP) PO SCH (23:02)
[2022-08-15] MEDS: BUMETANIDE 1 MG TABLET PO SCH ×2 (23:02→23:11)
[2022-08-15] MEDS: ATORVASTATIN CA 80 MG TABLET (FP) PO SCH (23:03)
[2022-08-15] MEDS: traZODone HCL 50 MG TABLET (FP) PO SCH (23:03)
[2022-08-16] MEDS: SACUBITRIL/VALSARTAN 24 MG-26 MG TABLET PO SCH ×3 (00:33→22:13)
[2022-08-16] MEDS: diazePAM 5 MG TABLET PO SCH ×4 (05:18→22:13)
[2022-08-16] MEDS: POTASSIUM CHLORIDE TABS 20 MEQ TABLET.ER (FP) PO SCH (10:10)
[2022-08-16] MEDS: SPIRONOLACTONE 25 MG TABLET PO SCH (10:10)
[2022-08-16] MEDS: PRENATAL VITAMINS W/ FOLIC ACID TABLET (FP) PO SCH (10:10)
[2022-08-16] MEDS: EMPAGLIFLOZIN (NF) 10 MG TABLET PO SCH (10:10)
[2022-08-16] MEDS: ASPIRIN COATED 81 MG TABLET.EC PO SCH (10:14)
[2022-08-16] MEDS: metoPROLOL SUCCINATE 25 MG TAB.SR.24H (FP) PO SCH (11:46)
[2022-08-16] MEDS: BUMETANIDE 1 MG TABLET PO SCH ×2 (14:46→17:38)
[2022-08-16] MEDS: traZODone HCL 50 MG TABLET (FP) PO SCH (22:12)
[2022-08-16] MEDS: THIAMINE HCL 100 MG TABLET (FP) PO SCH (22:13)
[2022-08-16] MEDS: ATORVASTATIN CA 80 MG TABLET (FP) PO SCH (22:13)
[2022-08-17] MEDS: diazePAM 5 MG TABLET PO SCH ×3 (06:43→22:07)
[2022-08-17] MEDS: BUMETANIDE 1 MG TABLET PO SCH ×2 (06:45→17:14)
[2022-08-17] MEDS: EMPAGLIFLOZIN (NF) 10 MG TABLET PO SCH (10:11)
[2022-08-17] MEDS: metoPROLOL SUCCINATE 25 MG TAB.SR.24H (FP) PO SCH (10:11)
[2022-08-17] MEDS: ASPIRIN COATED 81 MG TABLET.EC PO SCH (10:11)
[2022-08-17] MEDS: POTASSIUM CHLORIDE TABS 20 MEQ TABLET.ER (FP) PO SCH (10:12)
[2022-08-17] MEDS: SACUBITRIL/VALSARTAN 24 MG-26 MG TABLET PO SCH ×2 (10:12→22:08)
[2022-08-17] MEDS: SPIRONOLACTONE 25 MG TABLET PO SCH (10:12)
[2022-08-17] MEDS: PRENATAL VITAMINS W/ FOLIC ACID TABLET (FP) PO SCH (10:12)
[2022-08-17 12:27] LABS: HEMATOCRIT 49.9 % (35.4-49); HEMOGLOBIN 16.8 GM/dL (11.7-16.9); MCH 29.4 pg (25.7-33.7); MCHC 33.7 g/dl (32.0-35.9); MEAN CELL VOLUME 87.4 fl (80-96); MEAN PLT VOLUME 10.6 fl (7.5-11.1); PLATELET COUNT 167 10^3/uL (134-434); RDW 17.8 % (11.9-15.9); WHITE BLOOD COUNT 6.3 K/mm3 (4.0-10.0)
[2022-08-17 12:30] LABS: CALCIUM 9.5 mg/dL (8.5-10.1)
[2022-08-17 12:31] LABS: ALBUMIN 3.8 g/dl (3.4-5.0)
[2022-08-17 12:34] LABS: CREATININE 1.1 mg/dL (0.55-1.3)
[2022-08-17 12:35] LABS: TOT PROT 7.5 g/dl (6.4-8.2)
[2022-08-17 12:36] LABS: BILIRUBIN,TOTAL 1.6 mg/dL (0.2-1)
[2022-08-17] MEDS: THIAMINE HCL 100 MG TABLET (FP) PO SCH (22:07)
[2022-08-17] MEDS: traZODone HCL 50 MG TABLET (FP) PO SCH (22:07)
[2022-08-17] MEDS: ATORVASTATIN CA 80 MG TABLET (FP) PO SCH (22:07)
[2022-08-17] MEDS: MAGNESIUM HYDROX 2400MG/30ML ORAL SUSPENSION 30 ML CUP PO PRN (22:09)
[2022-08-18] MEDS: diazePAM 5 MG TABLET PO SCH ×2 (05:20→17:30)
[2022-08-18] MEDS: BUMETANIDE 1 MG TABLET PO SCH ×2 (05:20→17:29)
[2022-08-18] MEDS: SPIRONOLACTONE 25 MG TABLET PO SCH (10:28)
[2022-08-18] MEDS: metoPROLOL SUCCINATE 25 MG TAB.SR.24H (FP) PO SCH (10:28)
[2022-08-18] MEDS: PRENATAL VITAMINS W/ FOLIC ACID TABLET (FP) PO SCH (10:28)
[2022-08-18] MEDS: EMPAGLIFLOZIN (NF) 10 MG TABLET PO SCH (10:28)
[2022-08-18] MEDS: POTASSIUM CHLORIDE TABS 20 MEQ TABLET.ER (FP) PO SCH (10:28)
[2022-08-18] MEDS: ASPIRIN COATED 81 MG TABLET.EC PO SCH (10:28)
[2022-08-18] MEDS: SACUBITRIL/VALSARTAN 24 MG-26 MG TABLET PO SCH ×2 (10:29→22:52)
[2022-08-18] MEDS: MAGNESIUM HYDROX 2400MG/30ML ORAL SUSPENSION 30 ML CUP PO PRN (10:30)
[2022-08-18] MEDS: traZODone HCL 50 MG TABLET (FP) PO SCH (22:52)
[2022-08-18] MEDS: THIAMINE HCL 100 MG TABLET (FP) PO SCH (22:52)
[2022-08-18] MEDS: ATORVASTATIN CA 80 MG TABLET (FP) PO SCH (22:52)
[2022-08-19] MEDS: BUMETANIDE 1 MG TABLET PO SCH (05:14)
[2022-08-19] MEDS ORDERED: diazePAM 5 MG TABLET PO ONE (06:00)
[2022-08-19 09:10] VITALS: BP 104/65; PULSE 97; RESP 18; TEMP 96.8
[2022-08-19] MEDS: metoPROLOL SUCCINATE 25 MG TAB.SR.24H (FP) PO SCH (10:13)
[2022-08-19] MEDS: POTASSIUM CHLORIDE TABS 20 MEQ TABLET.ER (FP) PO SCH (10:13)
[2022-08-19] MEDS: ASPIRIN COATED 81 MG TABLET.EC PO SCH (10:13)
[2022-08-19] MEDS: SPIRONOLACTONE 25 MG TABLET PO SCH (10:13)
[2022-08-19] MEDS: PRENATAL VITAMINS W/ FOLIC ACID TABLET (FP) PO SCH (10:13)
[2022-08-19] MEDS: EMPAGLIFLOZIN (NF) 10 MG TABLET PO SCH (10:14)
[2022-08-19] MEDS: SACUBITRIL/VALSARTAN 24 MG-26 MG TABLET PO SCH (10:14)
== END 2022-08-19 12:20 | disposition other institution (70) | DRG 775 ==
LOC: YASAS 08:50 → Y6N 12:37
PROVIDERS: ADMIT Allergy & Immunology; ATTEND Surgery
PROC: HZ2ZZZZ Detoxification Services for Substance Abuse Treatment (ICD-10-PCS; principal; 2022-08-15)
DX: F10.230 Alcohol dependence with withdrawal, uncomplicated (principal); F12.20 Cannabis dependence, uncomplicated; F10.280 Alcohol dependence with alcohol-induced anxiety disorder; F41.8 Other specified anxiety disorders; E78.5 Hyperlipidemia, unspecified; I11.0 Hypertensive heart disease with heart failure; I50.9 Heart failure, unspecified; R73.03 Prediabetes; Z62.810 Personal history of physical and sexual abuse in childhood; Z91.410 Personal history of adult physical and sexual abuse; Z95.810 Presence of automatic (implantable) cardiac defibrillator
CPT/HCPCS: 36415; 71046-TC-FY; 80053; 85027; 86780; 93005; 93010; C9803-CS; U0003; U0005

== ENCOUNTER 2022-08-19 12:28 | Inpatient (IN) | payer BC ==
[2022-08-19] MEDS ORDERED: NALOXONE HCL (KLOXXADO) 8 MG SPRAY NS PRN (14:54)
[2022-08-19] MEDS ORDERED: hydrOXYzine PAMOATE 25 MG CAPSULE (FP) PO PRN (14:54)
[2022-08-19] MEDS ORDERED: METHOCARBAMOL 500 MG TABLET PO PRN (14:54)
[2022-08-19] MEDS ORDERED: NALOXONE HCL 0.4 MG/ML VIAL IVPUSH PRN (14:54)
[2022-08-19] MEDS ORDERED: guaiFENesin 600 MG TABLET.ER (FP) PO PRN (14:54)
[2022-08-19] MEDS ORDERED: MAGNESIUM HYDROX 2400MG/30ML ORAL SUSPENSION 30 ML CUP PO PRN (14:54)
[2022-08-19] MEDS ORDERED: ACETAMINOPHEN 325 MG TABLET (FP) PO PRN (14:54)
[2022-08-19] MEDS ORDERED: MAG HYDROX/AL HYDROX/SIMETH 30 ML UNIT-DOSE CUP PO PRN (14:54)
[2022-08-19] MEDS ORDERED: LOPERAMIDE HCL 2 MG CAPSULE PO PRN (14:54)
[2022-08-19] MEDS ORDERED: POLYETHYLENE GLYCOL (HEALTHYLAX) 3350 17 GM PACKET PO PRN (14:54)
[2022-08-19] MEDS ORDERED: BENZONATATE 200 MG CAPSULE PO PRN (14:54)
[2022-08-19] MEDS ORDERED: SENNOSIDES 8.6MG TABLET (FP) PO SCH (15:00)
[2022-08-19] MEDS ORDERED: BUMETANIDE 1 MG TABLET PO SCH ×2 (17:09→22:00)
[2022-08-19] MEDS: BUMETANIDE 1 MG TABLET PO SCH (17:22)
[2022-08-19] MEDS: NICOTINE POLACRILEX 2 MG GUM BUC PRN ×2 (18:45→20:59)
[2022-08-19] MEDS ORDERED: ATORVASTATIN CA 40 MG TABLET (FP) ONE (20:28)
[2022-08-19] MEDS: ATORVASTATIN CA 80 MG TABLET (FP) PO SCH (22:32)
[2022-08-19] MEDS: THIAMINE HCL 100 MG TABLET (FP) PO SCH (22:32)
[2022-08-19] MEDS: traZODone HCL 50 MG TABLET (FP) PO SCH (22:32)
[2022-08-19] MEDS: MELATONIN 5 MG TABLETS PO SCH (22:34)
[2022-08-19] MEDS: SACUBITRIL/VALSARTAN 24 MG-26 MG TABLET PO SCH (22:40)
[2022-08-20] MEDS: BUMETANIDE 1 MG TABLET PO SCH ×2 (06:40→18:03)
[2022-08-20] MEDS: NICOTINE POLACRILEX 2 MG GUM BUC PRN ×7 (07:03→22:10)
[2022-08-20] MEDS: POTASSIUM CHLORIDE TABS 20 MEQ TABLET.ER (FP) PO SCH (09:55)
[2022-08-20] MEDS: PRENATAL VITAMINS W/ FOLIC ACID TABLET (FP) PO SCH (09:55)
[2022-08-20] MEDS: EMPAGLIFLOZIN (NF) 10 MG TABLET PO SCH (09:56)
[2022-08-20] MEDS: IBUPROFEN 400 MG TABLET (FP) PO PRN (09:58)
[2022-08-20] MEDS ORDERED: [UNRECOGNIZED DRUG - OTHER] PO SCH (10:00)
[2022-08-20] MEDS ORDERED: MULTIVITAMIN THERAPEUTIC PO SCH (10:00)
[2022-08-20] MEDS: metoPROLOL SUCCINATE 25 MG TAB.SR.24H (FP) PO SCH (10:56)
[2022-08-20] MEDS: SPIRONOLACTONE 25 MG TABLET PO SCH (10:56)
[2022-08-20] MEDS: SACUBITRIL/VALSARTAN 24 MG-26 MG TABLET PO SCH ×2 (10:56→23:04)
[2022-08-20] MEDS: LACTULOSE 20 GM/30 ML UDC (FOR ORAL USE ONLY) PO SCH ×2 (17:01→23:03)
[2022-08-20] MEDS ORDERED: ATORVASTATIN CA 40 MG TABLET (FP) ONE (20:44)
[2022-08-20] MEDS: THIAMINE HCL 100 MG TABLET (FP) PO SCH (23:03)
[2022-08-20] MEDS: traZODone HCL 50 MG TABLET (FP) PO SCH (23:03)
[2022-08-20] MEDS: ATORVASTATIN CA 80 MG TABLET (FP) PO SCH (23:04)
[2022-08-20] MEDS: MELATONIN 5 MG TABLETS PO SCH (23:04)
[2022-08-21] MEDS: NICOTINE POLACRILEX 2 MG GUM BUC PRN ×7 (05:22→20:36)
[2022-08-21] MEDS: BUMETANIDE 1 MG TABLET PO SCH ×2 (06:08→17:46)
[2022-08-21] MEDS: SPIRONOLACTONE 25 MG TABLET PO SCH (09:38)
[2022-08-21] MEDS: SACUBITRIL/VALSARTAN 24 MG-26 MG TABLET PO SCH ×2 (09:38→22:55)
[2022-08-21] MEDS: LACTULOSE 20 GM/30 ML UDC (FOR ORAL USE ONLY) PO SCH ×4 (09:38→22:55)
[2022-08-21] MEDS: metoPROLOL SUCCINATE 25 MG TAB.SR.24H (FP) PO SCH (09:39)
[2022-08-21] MEDS: POTASSIUM CHLORIDE TABS 20 MEQ TABLET.ER (FP) PO SCH (09:39)
[2022-08-21] MEDS: PRENATAL VITAMINS W/ FOLIC ACID TABLET (FP) PO SCH (09:39)
[2022-08-21] MEDS: EMPAGLIFLOZIN (NF) 10 MG TABLET PO SCH (11:00)
[2022-08-21] MEDS ORDERED: ATORVASTATIN CA 40 MG TABLET (FP) ONE (19:48)
[2022-08-21] MEDS: THIAMINE HCL 100 MG TABLET (FP) PO SCH (22:51)
[2022-08-21] MEDS: traZODone HCL 50 MG TABLET (FP) PO SCH (22:52)
[2022-08-21] MEDS: ATORVASTATIN CA 80 MG TABLET (FP) PO SCH (22:52)
[2022-08-21] MEDS: MELATONIN 5 MG TABLETS PO SCH (22:55)
[2022-08-22] MEDS: BUMETANIDE 1 MG TABLET PO SCH ×2 (06:21→17:56)
[2022-08-22] MEDS: NICOTINE POLACRILEX 2 MG GUM BUC PRN ×5 (07:22→19:21)
[2022-08-22] MEDS: PRENATAL VITAMINS W/ FOLIC ACID TABLET (FP) PO SCH (09:41)
[2022-08-22] MEDS: SACUBITRIL/VALSARTAN 24 MG-26 MG TABLET PO SCH ×2 (09:42→23:32)
[2022-08-22] MEDS: metoPROLOL SUCCINATE 25 MG TAB.SR.24H (FP) PO SCH (09:42)
[2022-08-22] MEDS: POTASSIUM CHLORIDE TABS 20 MEQ TABLET.ER (FP) PO SCH (09:42)
[2022-08-22] MEDS: SPIRONOLACTONE 25 MG TABLET PO SCH (09:42)
[2022-08-22] MEDS: EMPAGLIFLOZIN (NF) 10 MG TABLET PO SCH (09:43)
[2022-08-22] MEDS: IBUPROFEN 400 MG TABLET (FP) PO PRN (09:46)
[2022-08-22] MEDS: LACTULOSE 20 GM/30 ML UDC (FOR ORAL USE ONLY) PO SCH ×4 (09:46→23:17)
[2022-08-22] MEDS ORDERED: ATORVASTATIN CA 40 MG TABLET (FP) ONE (20:20)
[2022-08-22] MEDS: traZODone HCL 50 MG TABLET (FP) PO SCH (23:16)
[2022-08-22] MEDS: ATORVASTATIN CA 80 MG TABLET (FP) PO SCH (23:16)
[2022-08-22] MEDS: THIAMINE HCL 100 MG TABLET (FP) PO SCH (23:17)
[2022-08-22] MEDS: MELATONIN 5 MG TABLETS PO SCH (23:33)
[2022-08-23] MEDS: BUMETANIDE 1 MG TABLET PO SCH ×2 (06:19→17:39)
[2022-08-23] MEDS: NICOTINE POLACRILEX 2 MG GUM BUC PRN ×6 (06:19→23:30)
[2022-08-23] MEDS: POTASSIUM CHLORIDE TABS 20 MEQ TABLET.ER (FP) PO SCH (09:49)
[2022-08-23] MEDS: PRENATAL VITAMINS W/ FOLIC ACID TABLET (FP) PO SCH (09:49)
[2022-08-23] MEDS: LACTULOSE 20 GM/30 ML UDC (FOR ORAL USE ONLY) PO SCH ×4 (09:49→21:20)
[2022-08-23] MEDS: EMPAGLIFLOZIN (NF) 10 MG TABLET PO SCH (09:50)
[2022-08-23] MEDS: SACUBITRIL/VALSARTAN 24 MG-26 MG TABLET PO SCH ×2 (11:00→21:20)
[2022-08-23] MEDS: metoPROLOL SUCCINATE 25 MG TAB.SR.24H (FP) PO SCH (11:00)
[2022-08-23] MEDS: SPIRONOLACTONE 25 MG TABLET PO SCH (11:00)
[2022-08-23] MEDS: IBUPROFEN 400 MG TABLET (FP) PO PRN (12:15)
[2022-08-23] MEDS ORDERED: ATORVASTATIN CA 40 MG TABLET (FP) ONE (19:19)
[2022-08-23] MEDS: MELATONIN 5 MG TABLETS PO SCH (21:19)
[2022-08-23] MEDS: THIAMINE HCL 100 MG TABLET (FP) PO SCH (21:20)
[2022-08-23] MEDS: ATORVASTATIN CA 80 MG TABLET (FP) PO SCH (21:20)
[2022-08-23] MEDS: traZODone HCL 50 MG TABLET (FP) PO SCH (23:29)
[2022-08-24] MEDS: BUMETANIDE 1 MG TABLET PO SCH ×2 (06:21→17:22)
[2022-08-24] MEDS: NICOTINE POLACRILEX 2 MG GUM BUC PRN ×7 (06:22→20:29)
[2022-08-24] MEDS: PRENATAL VITAMINS W/ FOLIC ACID TABLET (FP) PO SCH (10:05)
[2022-08-24] MEDS: LACTULOSE 20 GM/30 ML UDC (FOR ORAL USE ONLY) PO SCH ×4 (10:06→21:45)
[2022-08-24] MEDS: POTASSIUM CHLORIDE TABS 20 MEQ TABLET.ER (FP) PO SCH (10:07)
[2022-08-24] MEDS: EMPAGLIFLOZIN (NF) 10 MG TABLET PO SCH (10:08)
[2022-08-24] MEDS: SACUBITRIL/VALSARTAN 24 MG-26 MG TABLET PO SCH ×2 (14:47→21:44)
[2022-08-24] MEDS: metoPROLOL SUCCINATE 25 MG TAB.SR.24H (FP) PO SCH (14:47)
[2022-08-24] MEDS: SPIRONOLACTONE 25 MG TABLET PO SCH (14:47)
[2022-08-24] MEDS ORDERED: ATORVASTATIN CA 40 MG TABLET (FP) ONE (19:08)
[2022-08-24] MEDS: ATORVASTATIN CA 80 MG TABLET (FP) PO SCH (21:43)
[2022-08-24] MEDS: THIAMINE HCL 100 MG TABLET (FP) PO SCH (21:43)
[2022-08-24] MEDS: traZODone HCL 50 MG TABLET (FP) PO SCH (22:25)
[2022-08-24] MEDS: MELATONIN 5 MG TABLETS PO SCH (22:26)
[2022-08-25] MEDS: BUMETANIDE 1 MG TABLET PO SCH ×2 (06:01→17:13)
[2022-08-25] MEDS: NICOTINE POLACRILEX 2 MG GUM BUC PRN ×7 (06:02→22:32)
[2022-08-25] MEDS: EMPAGLIFLOZIN (NF) 10 MG TABLET PO SCH (10:56)
[2022-08-25] MEDS: SPIRONOLACTONE 25 MG TABLET PO SCH (10:56)
[2022-08-25] MEDS: SACUBITRIL/VALSARTAN 24 MG-26 MG TABLET PO SCH ×2 (10:56→21:30)
[2022-08-25] MEDS: LACTULOSE 20 GM/30 ML UDC (FOR ORAL USE ONLY) PO SCH (10:56)
[2022-08-25] MEDS: POTASSIUM CHLORIDE TABS 20 MEQ TABLET.ER (FP) PO SCH (10:57)
[2022-08-25] MEDS: PRENATAL VITAMINS W/ FOLIC ACID TABLET (FP) PO SCH (10:57)
[2022-08-25] MEDS: metoPROLOL SUCCINATE 25 MG TAB.SR.24H (FP) PO SCH (10:57)
[2022-08-25] MEDS ORDERED: FLUOCINONIDE 0.05% CREAM (15 GM TUBE) TP PRN (10:59)
[2022-08-25 12:44] LABS: POTASSIUM 3.9 mmol/L (3.5-5.1)
[2022-08-25 12:48] LABS: CALCIUM 10.3 mg/dL (8.5-10.1)
[2022-08-25 12:49] LABS: ALBUMIN 4.4 g/dl (3.4-5.0); BLOOD UREA NITROGEN 22.3 mg/dL (7-18)
[2022-08-25 12:51] LABS: BASO % 1.1 % (0-2.0); EOS % 2.7 % (0-4.5); HEMATOCRIT 50.1 % (35.4-49); HEMOGLOBIN 16.2 GM/dL (11.7-16.9); LYMPH % 35.6 % (8-40); MCH 28.8 pg (25.7-33.7); MCHC 32.3 g/dl (32.0-35.9); MEAN CELL VOLUME 88.9 fl (80-96); MEAN PLT VOLUME 12.1 fl (7.5-11.1); MONO % 12.1 % (3.8-10.2); NEUT % 48.5 % (42.8-82.8); PLATELET COUNT 121 10^3/uL (134-434); RBC 5.63 M/mm3 (4.00-5.60); RDW 18.3 % (11.9-15.9); WHITE BLOOD COUNT 5.4 K/mm3 (4.0-10.0)
[2022-08-25 12:52] LABS: CREATININE 1.6 mg/dL (0.55-1.3)
[2022-08-25 12:53] LABS: TOT PROT 8.2 g/dl (6.4-8.2)
[2022-08-25] MEDS: NICOTINE 10 MG CARTRIDGE (INHALER) IH SCH (14:16)
[2022-08-25] MEDS: IBUPROFEN 400 MG TABLET (FP) PO PRN (16:49)
[2022-08-25] MEDS: COLLOIDAL OATMEAL 1 BAR EACH TP PRN (18:18)
[2022-08-25] MEDS ORDERED: ATORVASTATIN CA 40 MG TABLET (FP) ONE (21:02)
[2022-08-25] MEDS: ATORVASTATIN CA 80 MG TABLET (FP) PO SCH (21:29)
[2022-08-25] MEDS: THIAMINE HCL 100 MG TABLET (FP) PO SCH (21:29)
[2022-08-25] MEDS: MELATONIN 5 MG TABLETS PO SCH (21:30)
[2022-08-25] MEDS: traZODone HCL 50 MG TABLET (FP) PO SCH (22:31)
[2022-08-26] MEDS: NICOTINE POLACRILEX 2 MG GUM BUC PRN ×8 (06:14→23:36)
[2022-08-26] MEDS: BUMETANIDE 1 MG TABLET PO SCH ×2 (06:14→18:56)
[2022-08-26] MEDS: SPIRONOLACTONE 25 MG TABLET PO SCH (09:45)
[2022-08-26] MEDS: metoPROLOL SUCCINATE 25 MG TAB.SR.24H (FP) PO SCH (09:45)
[2022-08-26] MEDS: EMPAGLIFLOZIN (NF) 10 MG TABLET PO SCH (09:47)
[2022-08-26] MEDS: NICOTINE 10 MG CARTRIDGE (INHALER) IH SCH (09:47)
[2022-08-26] MEDS: PRENATAL VITAMINS W/ FOLIC ACID TABLET (FP) PO SCH (09:48)
[2022-08-26] MEDS: IBUPROFEN 400 MG TABLET (FP) PO PRN ×2 (09:50→18:53)
[2022-08-26] MEDS: POTASSIUM CHLORIDE TABS 20 MEQ TABLET.ER (FP) PO SCH (10:31)
[2022-08-26] MEDS: SACUBITRIL/VALSARTAN 24 MG-26 MG TABLET PO SCH ×2 (12:00→21:12)
[2022-08-26] MEDS ORDERED: ATORVASTATIN CA 40 MG TABLET (FP) ONE (20:28)
[2022-08-26] MEDS: ATORVASTATIN CA 80 MG TABLET (FP) PO SCH (21:12)
[2022-08-26] MEDS: THIAMINE HCL 100 MG TABLET (FP) PO SCH (21:13)
[2022-08-26] MEDS: traZODone HCL 50 MG TABLET (FP) PO SCH (21:13)
[2022-08-26] MEDS: MELATONIN 5 MG TABLETS PO SCH (21:14)
[2022-08-26] MEDS: AMMONIUM LACTATE 12% LOTION 225 GM BOTTLE TP PRN (23:41)
[2022-08-27] MEDS: BUMETANIDE 1 MG TABLET PO SCH ×2 (06:28→17:10)
[2022-08-27] MEDS: NICOTINE POLACRILEX 2 MG GUM BUC PRN ×8 (06:29→23:34)
[2022-08-27] MEDS: AMMONIUM LACTATE 12% LOTION 225 GM BOTTLE TP PRN (06:31)
[2022-08-27] MEDS: SPIRONOLACTONE 25 MG TABLET PO SCH (09:49)
[2022-08-27] MEDS: SACUBITRIL/VALSARTAN 24 MG-26 MG TABLET PO SCH ×2 (09:50→21:14)
[2022-08-27] MEDS: metoPROLOL SUCCINATE 25 MG TAB.SR.24H (FP) PO SCH (09:50)
[2022-08-27] MEDS: PRENATAL VITAMINS W/ FOLIC ACID TABLET (FP) PO SCH (10:13)
[2022-08-27] MEDS: EMPAGLIFLOZIN (NF) 10 MG TABLET PO SCH (10:14)
[2022-08-27] MEDS: POTASSIUM CHLORIDE TABS 20 MEQ TABLET.ER (FP) PO SCH (10:14)
[2022-08-27] MEDS: NICOTINE 10 MG CARTRIDGE (INHALER) IH SCH (10:45)
[2022-08-27] MEDS ORDERED: ATORVASTATIN CA 40 MG TABLET (FP) ONE (20:17)
[2022-08-27] MEDS: traZODone HCL 50 MG TABLET (FP) PO SCH (21:14)
[2022-08-27] MEDS: ATORVASTATIN CA 80 MG TABLET (FP) PO SCH (21:14)
[2022-08-27] MEDS: THIAMINE HCL 100 MG TABLET (FP) PO SCH (21:14)
[2022-08-27] MEDS: MELATONIN 5 MG TABLETS PO SCH (21:16)
[2022-08-28] MEDS: BUMETANIDE 1 MG TABLET PO SCH ×2 (05:56→17:25)
[2022-08-28] MEDS: NICOTINE POLACRILEX 2 MG GUM BUC PRN ×8 (05:58→23:18)
[2022-08-28] MEDS: POTASSIUM CHLORIDE TABS 20 MEQ TABLET.ER (FP) PO SCH (09:46)
[2022-08-28] MEDS: metoPROLOL SUCCINATE 25 MG TAB.SR.24H (FP) PO SCH (09:46)
[2022-08-28] MEDS: EMPAGLIFLOZIN (NF) 10 MG TABLET PO SCH (09:46)
[2022-08-28] MEDS: PRENATAL VITAMINS W/ FOLIC ACID TABLET (FP) PO SCH (09:46)
[2022-08-28] MEDS: SPIRONOLACTONE 25 MG TABLET PO SCH (09:46)
[2022-08-28] MEDS: IBUPROFEN 400 MG TABLET (FP) PO PRN (09:48)
[2022-08-28] MEDS: NICOTINE 10 MG CARTRIDGE (INHALER) IH SCH (11:00)
[2022-08-28] MEDS: SACUBITRIL/VALSARTAN 24 MG-26 MG TABLET PO SCH ×2 (11:35→21:08)
[2022-08-28] MEDS ORDERED: ATORVASTATIN CA 40 MG TABLET (FP) ONE (19:30)
[2022-08-28] MEDS: THIAMINE HCL 100 MG TABLET (FP) PO SCH (21:08)
[2022-08-28] MEDS: traZODone HCL 50 MG TABLET (FP) PO SCH (21:08)
[2022-08-28] MEDS: ATORVASTATIN CA 80 MG TABLET (FP) PO SCH (21:09)
[2022-08-28] MEDS: MELATONIN 5 MG TABLETS PO SCH (21:09)
[2022-08-28] MEDS: NICOTINE 10 MG CARTRIDGE (INHALER) IH PRN (21:10)
[2022-08-29] MEDS: BENZOCAINE/MENTHOL (CHLORASEPTIC ) LOZENGE MM PRN (06:34)
[2022-08-29] MEDS: NICOTINE POLACRILEX 2 MG GUM BUC PRN ×6 (06:34→21:25)
[2022-08-29] MEDS: BUMETANIDE 1 MG TABLET PO SCH ×2 (06:34→17:17)
[2022-08-29] MEDS: SPIRONOLACTONE 25 MG TABLET PO SCH (09:49)
[2022-08-29] MEDS: metoPROLOL SUCCINATE 25 MG TAB.SR.24H (FP) PO SCH (09:50)
[2022-08-29] MEDS: SACUBITRIL/VALSARTAN 24 MG-26 MG TABLET PO SCH ×2 (09:50→23:14)
[2022-08-29] MEDS: PRENATAL VITAMINS W/ FOLIC ACID TABLET (FP) PO SCH (09:50)
[2022-08-29] MEDS: IBUPROFEN 400 MG TABLET (FP) PO PRN (09:51)
[2022-08-29] MEDS: EMPAGLIFLOZIN (NF) 10 MG TABLET PO SCH (09:51)
[2022-08-29] MEDS: POTASSIUM CHLORIDE TABS 20 MEQ TABLET.ER (FP) PO SCH (09:51)
[2022-08-29] MEDS ORDERED: ATORVASTATIN CA 40 MG TABLET (FP) ONE (20:33)
[2022-08-29] MEDS: THIAMINE HCL 100 MG TABLET (FP) PO SCH (21:22)
[2022-08-29] MEDS: traZODone HCL 50 MG TABLET (FP) PO SCH (21:22)
[2022-08-29] MEDS: ATORVASTATIN CA 80 MG TABLET (FP) PO SCH (21:23)
[2022-08-29] MEDS: MELATONIN 5 MG TABLETS PO SCH (21:23)
[2022-08-30] MEDS: BENZOCAINE/MENTHOL (CHLORASEPTIC ) LOZENGE MM PRN ×2 (06:10→11:21)
[2022-08-30] MEDS: BUMETANIDE 1 MG TABLET PO SCH ×2 (06:11→17:15)
[2022-08-30] MEDS: NICOTINE POLACRILEX 2 MG GUM BUC PRN ×6 (06:12→19:14)
[2022-08-30] MEDS: NICOTINE 10 MG CARTRIDGE (INHALER) IH PRN (08:58)
[2022-08-30] MEDS: PRENATAL VITAMINS W/ FOLIC ACID TABLET (FP) PO SCH (09:36)
[2022-08-30] MEDS: metoPROLOL SUCCINATE 25 MG TAB.SR.24H (FP) PO SCH (09:36)
[2022-08-30] MEDS: POTASSIUM CHLORIDE TABS 20 MEQ TABLET.ER (FP) PO SCH (09:36)
[2022-08-30] MEDS: EMPAGLIFLOZIN (NF) 10 MG TABLET PO SCH (09:37)
[2022-08-30] MEDS: SACUBITRIL/VALSARTAN 24 MG-26 MG TABLET PO SCH ×2 (09:38→21:28)
[2022-08-30] MEDS: SPIRONOLACTONE 25 MG TABLET PO SCH (09:41)
[2022-08-30] MEDS ORDERED: ATORVASTATIN CA 40 MG TABLET (FP) ONE (19:16)
[2022-08-30] MEDS: traZODone HCL 50 MG TABLET (FP) PO SCH (21:27)
[2022-08-30] MEDS: THIAMINE HCL 100 MG TABLET (FP) PO SCH (21:27)
[2022-08-30] MEDS: ATORVASTATIN CA 80 MG TABLET (FP) PO SCH (21:27)
[2022-08-30] MEDS: MELATONIN 5 MG TABLETS PO SCH (21:27)
[2022-08-30] MEDS: IBUPROFEN 400 MG TABLET (FP) PO PRN (21:29)
[2022-08-31] MEDS: BUMETANIDE 1 MG TABLET PO SCH ×2 (06:09→17:24)
[2022-08-31] MEDS: BENZOCAINE/MENTHOL (CHLORASEPTIC ) LOZENGE MM PRN ×2 (06:09→13:47)
[2022-08-31] MEDS: NICOTINE POLACRILEX 2 MG GUM BUC PRN ×6 (08:18→23:29)
[2022-08-31] MEDS: PRENATAL VITAMINS W/ FOLIC ACID TABLET (FP) PO SCH (09:52)
[2022-08-31] MEDS: SACUBITRIL/VALSARTAN 24 MG-26 MG TABLET PO SCH ×2 (09:53→21:20)
[2022-08-31] MEDS: EMPAGLIFLOZIN (NF) 10 MG TABLET PO SCH (09:55)
[2022-08-31] MEDS: POTASSIUM CHLORIDE TABS 20 MEQ TABLET.ER (FP) PO SCH (10:31)
[2022-08-31] MEDS: SPIRONOLACTONE 25 MG TABLET PO SCH (12:14)
[2022-08-31] MEDS: metoPROLOL SUCCINATE 25 MG TAB.SR.24H (FP) PO SCH (12:15)
[2022-08-31] MEDS ORDERED: ATORVASTATIN CA 40 MG TABLET (FP) ONE (19:30)
[2022-08-31] MEDS: ATORVASTATIN CA 80 MG TABLET (FP) PO SCH (21:20)
[2022-08-31] MEDS: THIAMINE HCL 100 MG TABLET (FP) PO SCH (21:20)
[2022-08-31] MEDS: traZODone HCL 50 MG TABLET (FP) PO SCH (21:20)
[2022-08-31] MEDS: guaiFENesin 600 MG TABLET.ER (FP) PO SCH (21:59)
[2022-08-31] MEDS: MELATONIN 5 MG TABLETS PO SCH (21:59)
[2022-09-01] MEDS: NICOTINE POLACRILEX 2 MG GUM BUC PRN ×8 (04:53→21:28)
[2022-09-01] MEDS: BENZOCAINE/MENTHOL (CHLORASEPTIC ) LOZENGE MM PRN ×2 (05:22→10:30)
[2022-09-01] MEDS: BUMETANIDE 1 MG TABLET PO SCH ×2 (05:24→17:02)
[2022-09-01] MEDS ORDERED: MENTHOL/PHENOL 1 EACH UD MM PRN (09:32)
[2022-09-01] MEDS: PRENATAL VITAMINS W/ FOLIC ACID TABLET (FP) PO SCH (10:24)
[2022-09-01] MEDS: EMPAGLIFLOZIN (NF) 10 MG TABLET PO SCH (10:25)
[2022-09-01] MEDS: guaiFENesin 600 MG TABLET.ER (FP) PO SCH ×2 (10:25→21:27)
[2022-09-01] MEDS: POTASSIUM CHLORIDE TABS 20 MEQ TABLET.ER (FP) PO SCH (10:25)
[2022-09-01] MEDS: metoPROLOL SUCCINATE 25 MG TAB.SR.24H (FP) PO SCH (10:25)
[2022-09-01] MEDS: SPIRONOLACTONE 25 MG TABLET PO SCH (10:26)
[2022-09-01] MEDS: SACUBITRIL/VALSARTAN 24 MG-26 MG TABLET PO SCH ×2 (10:27→21:27)
[2022-09-01] MEDS: IBUPROFEN 400 MG TABLET (FP) PO PRN (10:29)
[2022-09-01 10:42] LABS: POTASSIUM 3.8 mmol/L (3.5-5.1)
[2022-09-01 10:44] LABS: BLOOD UREA NITROGEN 17.9 mg/dL (7-18); CALCIUM 9.3 mg/dL (8.5-10.1)
[2022-09-01 10:47] LABS: CREATININE 1.1 mg/dL (0.55-1.3)
[2022-09-01 10:49] LABS: BILIRUBIN,TOTAL 1.9 mg/dL (0.2-1); TOT PROT 7.6 g/dl (6.4-8.2)
[2022-09-01 10:52] LABS: BASO % 1.1 % (0-2.0); EOS % 1.3 % (0-4.5); HEMATOCRIT 45.3 % (35.4-49); LYMPH % 20.2 % (8-40); MCH 28.8 pg (25.7-33.7); MCHC 33.1 g/dl (32.0-35.9); MEAN PLT VOLUME 11.7 fl (7.5-11.1); MONO % 10.9 % (3.8-10.2); NEUT % 66.5 % (42.8-82.8); PLATELET COUNT 140 10^3/uL (134-434); RBC 5.21 M/mm3 (4.00-5.60); WHITE BLOOD COUNT 8.8 K/mm3 (4.0-10.0)
[2022-09-01 11:09] LABS: PLATELET ESTIMATE ADEQUATE
[2022-09-01] MEDS ORDERED: ATORVASTATIN CA 40 MG TABLET (FP) ONE (19:37)
[2022-09-01] MEDS: traZODone HCL 50 MG TABLET (FP) PO SCH (21:26)
[2022-09-01] MEDS: ATORVASTATIN CA 80 MG TABLET (FP) PO SCH (21:26)
[2022-09-01] MEDS: THIAMINE HCL 100 MG TABLET (FP) PO SCH (21:27)
[2022-09-01] MEDS: MELATONIN 5 MG TABLETS PO SCH (21:28)
[2022-09-02] MEDS: BUMETANIDE 1 MG TABLET PO SCH ×2 (07:20→17:04)
[2022-09-02] MEDS: NICOTINE POLACRILEX 2 MG GUM BUC PRN ×5 (07:20→20:47)
[2022-09-02] MEDS: BENZOCAINE/MENTHOL (CHLORASEPTIC ) LOZENGE MM PRN (07:20)
[2022-09-02] MEDS: POTASSIUM CHLORIDE TABS 20 MEQ TABLET.ER (FP) PO SCH (09:38)
[2022-09-02] MEDS: EMPAGLIFLOZIN (NF) 10 MG TABLET PO SCH (09:39)
[2022-09-02] MEDS: IBUPROFEN 400 MG TABLET (FP) PO PRN (09:39)
[2022-09-02] MEDS: SACUBITRIL/VALSARTAN 24 MG-26 MG TABLET PO SCH ×2 (09:39→21:26)
[2022-09-02] MEDS: guaiFENesin 600 MG TABLET.ER (FP) PO SCH ×2 (09:39→21:26)
[2022-09-02] MEDS: PRENATAL VITAMINS W/ FOLIC ACID TABLET (FP) PO SCH (09:39)
[2022-09-02] MEDS: SPIRONOLACTONE 25 MG TABLET PO SCH (11:28)
[2022-09-02] MEDS: metoPROLOL SUCCINATE 25 MG TAB.SR.24H (FP) PO SCH (11:28)
[2022-09-02] MEDS: COLLOIDAL OATMEAL 1 BAR EACH TP PRN (11:28)
[2022-09-02] MEDS ORDERED: ATORVASTATIN CA 40 MG TABLET (FP) ONE (19:33)
[2022-09-02] MEDS: ATORVASTATIN CA 80 MG TABLET (FP) PO SCH (21:26)
[2022-09-02] MEDS: traZODone HCL 50 MG TABLET (FP) PO SCH (21:26)
[2022-09-02] MEDS: THIAMINE HCL 100 MG TABLET (FP) PO SCH (21:26)
[2022-09-02] MEDS: MELATONIN 5 MG TABLETS PO SCH (21:27)
[2022-09-03] MEDS: NICOTINE POLACRILEX 2 MG GUM BUC PRN ×7 (06:01→21:20)
[2022-09-03] MEDS: BUMETANIDE 1 MG TABLET PO SCH ×2 (06:02→17:02)
[2022-09-03] MEDS: BENZOCAINE/MENTHOL (CHLORASEPTIC ) LOZENGE MM PRN (06:25)
[2022-09-03] MEDS: POTASSIUM CHLORIDE TABS 20 MEQ TABLET.ER (FP) PO SCH (09:42)
[2022-09-03] MEDS: SPIRONOLACTONE 25 MG TABLET PO SCH (09:42)
[2022-09-03] MEDS: PRENATAL VITAMINS W/ FOLIC ACID TABLET (FP) PO SCH (09:42)
[2022-09-03] MEDS: metoPROLOL SUCCINATE 25 MG TAB.SR.24H (FP) PO SCH (09:42)
[2022-09-03] MEDS: guaiFENesin 600 MG TABLET.ER (FP) PO SCH ×2 (09:43→21:18)
[2022-09-03] MEDS: EMPAGLIFLOZIN (NF) 10 MG TABLET PO SCH (09:43)
[2022-09-03] MEDS: SACUBITRIL/VALSARTAN 24 MG-26 MG TABLET PO SCH ×2 (09:43→21:18)
[2022-09-03] MEDS: IBUPROFEN 400 MG TABLET (FP) PO PRN (09:45)
[2022-09-03] MEDS ORDERED: ATORVASTATIN CA 40 MG TABLET (FP) ONE (20:11)
[2022-09-03] MEDS: traZODone HCL 50 MG TABLET (FP) PO SCH (21:18)
[2022-09-03] MEDS: MELATONIN 5 MG TABLETS PO SCH (21:18)
[2022-09-03] MEDS: THIAMINE HCL 100 MG TABLET (FP) PO SCH (21:18)
[2022-09-03] MEDS: ATORVASTATIN CA 80 MG TABLET (FP) PO SCH (21:18)
[2022-09-04] MEDS: NICOTINE POLACRILEX 2 MG GUM BUC PRN ×7 (06:34→21:36)
[2022-09-04] MEDS: BUMETANIDE 1 MG TABLET PO SCH ×2 (06:34→17:05)
[2022-09-04] MEDS: SPIRONOLACTONE 25 MG TABLET PO SCH (09:21)
[2022-09-04] MEDS: metoPROLOL SUCCINATE 25 MG TAB.SR.24H (FP) PO SCH (09:22)
[2022-09-04] MEDS: PRENATAL VITAMINS W/ FOLIC ACID TABLET (FP) PO SCH (09:22)
[2022-09-04] MEDS: SACUBITRIL/VALSARTAN 24 MG-26 MG TABLET PO SCH ×2 (09:22→21:40)
[2022-09-04] MEDS: POTASSIUM CHLORIDE TABS 20 MEQ TABLET.ER (FP) PO SCH (09:22)
[2022-09-04] MEDS: EMPAGLIFLOZIN (NF) 10 MG TABLET PO SCH (09:22)
[2022-09-04] MEDS: guaiFENesin 600 MG TABLET.ER (FP) PO SCH ×2 (09:22→21:33)
[2022-09-04] MEDS: IBUPROFEN 400 MG TABLET (FP) PO PRN (19:20)
[2022-09-04] MEDS ORDERED: ATORVASTATIN CA 40 MG TABLET (FP) ONE (20:13)
[2022-09-04] MEDS: THIAMINE HCL 100 MG TABLET (FP) PO SCH (21:32)
[2022-09-04] MEDS: traZODone HCL 50 MG TABLET (FP) PO SCH (21:32)
[2022-09-04] MEDS: MELATONIN 5 MG TABLETS PO SCH (21:33)
[2022-09-04] MEDS: ATORVASTATIN CA 80 MG TABLET (FP) PO SCH (21:33)
[2022-09-05] MEDS: BUMETANIDE 1 MG TABLET PO SCH ×2 (06:53→17:02)
[2022-09-05] MEDS: NICOTINE POLACRILEX 2 MG GUM BUC PRN ×7 (06:54→21:13)
[2022-09-05] MEDS: BENZOCAINE/MENTHOL (CHLORASEPTIC ) LOZENGE MM PRN ×2 (06:54→20:11)
[2022-09-05] MEDS: SPIRONOLACTONE 25 MG TABLET PO SCH (09:36)
[2022-09-05] MEDS: PRENATAL VITAMINS W/ FOLIC ACID TABLET (FP) PO SCH (09:36)
[2022-09-05] MEDS: EMPAGLIFLOZIN (NF) 10 MG TABLET PO SCH (09:36)
[2022-09-05] MEDS: metoPROLOL SUCCINATE 25 MG TAB.SR.24H (FP) PO SCH (09:36)
[2022-09-05] MEDS: POTASSIUM CHLORIDE TABS 20 MEQ TABLET.ER (FP) PO SCH (09:37)
[2022-09-05] MEDS: guaiFENesin 600 MG TABLET.ER (FP) PO SCH ×2 (09:37→21:12)
[2022-09-05] MEDS: SACUBITRIL/VALSARTAN 24 MG-26 MG TABLET PO SCH ×2 (10:22→21:11)
[2022-09-05] MEDS: NICOTINE 10 MG CARTRIDGE (INHALER) IH PRN (19:10)
[2022-09-05] MEDS ORDERED: ATORVASTATIN CA 40 MG TABLET (FP) ONE (20:08)
[2022-09-05] MEDS: traZODone HCL 50 MG TABLET (FP) PO SCH (21:11)
[2022-09-05] MEDS: MELATONIN 5 MG TABLETS PO SCH (21:12)
[2022-09-05] MEDS: ATORVASTATIN CA 80 MG TABLET (FP) PO SCH (21:12)
[2022-09-05] MEDS: DOCUSATE SODIUM 100 MG CAPSULE (FP) PO SCH (21:12)
[2022-09-05] MEDS: THIAMINE HCL 100 MG TABLET (FP) PO SCH (21:34)
[2022-09-06] MEDS: BUMETANIDE 1 MG TABLET PO SCH ×2 (07:48→17:03)
[2022-09-06] MEDS: NICOTINE POLACRILEX 2 MG GUM BUC PRN ×5 (07:49→23:13)
[2022-09-06] MEDS: POTASSIUM CHLORIDE TABS 20 MEQ TABLET.ER (FP) PO SCH (09:57)
[2022-09-06] MEDS: PRENATAL VITAMINS W/ FOLIC ACID TABLET (FP) PO SCH (09:57)
[2022-09-06] MEDS: EMPAGLIFLOZIN (NF) 10 MG TABLET PO SCH (09:57)
[2022-09-06] MEDS: guaiFENesin 600 MG TABLET.ER (FP) PO SCH ×2 (09:57→21:04)
[2022-09-06] MEDS: IBUPROFEN 600 MG TABLET (FP) PO PRN (10:00)
[2022-09-06] MEDS: metoPROLOL SUCCINATE 25 MG TAB.SR.24H (FP) PO SCH (10:02)
[2022-09-06] MEDS: SPIRONOLACTONE 25 MG TABLET PO SCH (10:03)
[2022-09-06] MEDS: SACUBITRIL/VALSARTAN 24 MG-26 MG TABLET PO SCH ×3 (10:03→21:05)
[2022-09-06] MEDS ORDERED: ATORVASTATIN CA 40 MG TABLET (FP) ONE (19:11)
[2022-09-06] MEDS: DOCUSATE SODIUM 100 MG CAPSULE (FP) PO SCH (21:04)
[2022-09-06] MEDS: ATORVASTATIN CA 80 MG TABLET (FP) PO SCH (21:04)
[2022-09-06] MEDS: traZODone HCL 50 MG TABLET (FP) PO SCH (21:04)
[2022-09-06] MEDS: MELATONIN 5 MG TABLETS PO SCH (21:07)
[2022-09-06] MEDS: THIAMINE HCL 100 MG TABLET (FP) PO SCH (21:07)
[2022-09-06] MEDS: NICOTINE 10 MG CARTRIDGE (INHALER) IH PRN (22:49)
[2022-09-07] MEDS: BUMETANIDE 1 MG TABLET PO SCH ×2 (06:36→20:05)
[2022-09-07] MEDS: NICOTINE POLACRILEX 2 MG GUM BUC PRN ×6 (08:53→23:14)
[2022-09-07] MEDS: guaiFENesin 600 MG TABLET.ER (FP) PO SCH ×2 (09:57→21:06)
[2022-09-07] MEDS: PRENATAL VITAMINS W/ FOLIC ACID TABLET (FP) PO SCH (09:57)
[2022-09-07] MEDS: POTASSIUM CHLORIDE TABS 20 MEQ TABLET.ER (FP) PO SCH (09:58)
[2022-09-07] MEDS: SACUBITRIL/VALSARTAN 24 MG-26 MG TABLET PO SCH ×2 (09:58→21:06)
[2022-09-07] MEDS: metoPROLOL SUCCINATE 25 MG TAB.SR.24H (FP) PO SCH (09:59)
[2022-09-07] MEDS: EMPAGLIFLOZIN (NF) 10 MG TABLET PO SCH (10:00)
[2022-09-07] MEDS: SPIRONOLACTONE 25 MG TABLET PO SCH (10:01)
[2022-09-07] MEDS: BENZOCAINE/MENTHOL (CHLORASEPTIC ) LOZENGE MM PRN (10:04)
[2022-09-07] MEDS: IBUPROFEN 600 MG TABLET (FP) PO PRN (11:58)
[2022-09-07] MEDS ORDERED: ATORVASTATIN CA 40 MG TABLET (FP) ONE (20:26)
[2022-09-07] MEDS: DOCUSATE SODIUM 100 MG CAPSULE (FP) PO SCH (21:05)
[2022-09-07] MEDS: traZODone HCL 50 MG TABLET (FP) PO SCH (21:05)
[2022-09-07] MEDS: MELATONIN 5 MG TABLETS PO SCH (21:06)
[2022-09-07] MEDS: ATORVASTATIN CA 80 MG TABLET (FP) PO SCH (21:06)
[2022-09-07] MEDS: THIAMINE HCL 100 MG TABLET (FP) PO SCH (21:06)
[2022-09-08] MEDS: BUMETANIDE 1 MG TABLET PO SCH ×2 (05:51→17:34)
[2022-09-08] MEDS: NICOTINE POLACRILEX 2 MG GUM BUC PRN ×4 (05:53→18:58)
[2022-09-08] MEDS: BENZOCAINE/MENTHOL (CHLORASEPTIC ) LOZENGE MM PRN (06:08)
[2022-09-08 07:25] VITALS: RESP 18
[2022-09-08] MEDS: SPIRONOLACTONE 25 MG TABLET PO SCH (09:51)
[2022-09-08] MEDS: POTASSIUM CHLORIDE TABS 20 MEQ TABLET.ER (FP) PO SCH (09:52)
[2022-09-08] MEDS: PRENATAL VITAMINS W/ FOLIC ACID TABLET (FP) PO SCH (09:52)
[2022-09-08] MEDS: metoPROLOL SUCCINATE 25 MG TAB.SR.24H (FP) PO SCH (09:52)
[2022-09-08 10:04] LABS: MAGNESIUM 2.1 mg/dL (1.8-2.4)
[2022-09-08] MEDS: guaiFENesin 600 MG TABLET.ER (FP) PO SCH ×2 (10:47→21:17)
[2022-09-08] MEDS: EMPAGLIFLOZIN (NF) 10 MG TABLET PO SCH (10:47)
[2022-09-08] MEDS: SACUBITRIL/VALSARTAN 24 MG-26 MG TABLET PO SCH ×2 (10:47→21:18)
[2022-09-08 12:45] LABS: POTASSIUM 3.8 mmol/L (3.5-5.1)
[2022-09-08] MEDS ORDERED: ATORVASTATIN CA 40 MG TABLET (FP) ONE (20:18)
[2022-09-08] MEDS: NICOTINE 10 MG CARTRIDGE (INHALER) IH PRN (20:23)
[2022-09-08] MEDS: MELATONIN 5 MG TABLETS PO SCH (21:15)
[2022-09-08] MEDS: THIAMINE HCL 100 MG TABLET (FP) PO SCH (21:15)
[2022-09-08] MEDS: traZODone HCL 50 MG TABLET (FP) PO SCH (21:16)
[2022-09-08] MEDS: DOCUSATE SODIUM 100 MG CAPSULE (FP) PO SCH (21:17)
[2022-09-08] MEDS: ATORVASTATIN CA 80 MG TABLET (FP) PO SCH (21:18)
[2022-09-09] MEDS: BUMETANIDE 1 MG TABLET PO SCH (06:08)
[2022-09-09] MEDS: NICOTINE POLACRILEX 2 MG GUM BUC PRN ×3 (06:39→11:02)
[2022-09-09] MEDS: BENZOCAINE/MENTHOL (CHLORASEPTIC ) LOZENGE MM PRN (06:39)
[2022-09-09 07:13] VITALS: BP 96/61; PULSE 80; TEMP 97.5
[2022-09-09] MEDS ORDERED: POTASSIUM CHLORIDE ORAL LIQUID 20 MEQ/15 ML PO ONE (08:36)
[2022-09-09] MEDS: SPIRONOLACTONE 25 MG TABLET PO SCH (09:55)
[2022-09-09] MEDS: metoPROLOL SUCCINATE 25 MG TAB.SR.24H (FP) PO SCH (09:57)
[2022-09-09] MEDS: PRENATAL VITAMINS W/ FOLIC ACID TABLET (FP) PO SCH (09:57)
[2022-09-09] MEDS: guaiFENesin 600 MG TABLET.ER (FP) PO SCH (09:58)
[2022-09-09] MEDS: EMPAGLIFLOZIN (NF) 10 MG TABLET PO SCH (09:58)
[2022-09-09] MEDS: POTASSIUM CHLORIDE TABS 20 MEQ TABLET.ER (FP) PO SCH (09:58)
[2022-09-09] MEDS: SACUBITRIL/VALSARTAN 24 MG-26 MG TABLET PO SCH (09:59)
[2022-09-09] MEDS ORDERED: MAGNESIUM CL 64 MG TABLET.SA PO SCH (10:00)
== END 2022-09-09 11:36 | disposition home or self-care (01) | DRG 772 ==
LOC: YASAS 12:28 → Y5N 12:29 → Y3W 09-04 17:29 → Y5N 09-04 17:34
PROVIDERS: ADMIT Allergy & Immunology; ATTEND Psychiatry & Neurology Pain Medicine
PROC: HZ42ZZZ Group Counseling for Substance Abuse Treatment, Cognitive-Behavioral (ICD-10-PCS; principal; 2022-08-19)
DX: F10.20 Alcohol dependence, uncomplicated (principal); F12.20 Cannabis dependence, uncomplicated; F10.280 Alcohol dependence with alcohol-induced anxiety disorder; F10.282 Alcohol dependence with alcohol-induced sleep disorder; F41.8 Other specified anxiety disorders; E78.5 Hyperlipidemia, unspecified; I25.10 Atherosclerotic heart disease of native coronary artery without angina pectoris; I11.0 Hypertensive heart disease with heart failure; I50.9 Heart failure, unspecified; I95.9 Hypotension, unspecified; I25.2 Old myocardial infarction; R79.89 Other specified abnormal findings of blood chemistry; Z87.01 Personal history of pneumonia (recurrent); Z95.810 Presence of automatic (implantable) cardiac defibrillator
CPT/HCPCS: 36415; 80053; 82140; 82947; 82962; 83036; 83735; 84132; 85025; 86803; 93005; 93010